=== PATIENT | female | born 1930 | race Caucasian/White ===

== ENCOUNTER 2016-12-23 23:57 | Emergency (ER) | payer BC ==
[~2016-12-23] VITALS: Ht 152.4 cm; Wt 64.5 kg
[~2016-12-23 23:57] MED LIST: AMLO5TAB4 PO; ASPI1TAB83 PO; ATEN-175 PO; CALC600T PO; CHOL100027 PO; DICL1GEL28 EXT; LEVO75TA5 PO; MCRK20 PO; METF500T5 PO; NRT/25 PO; OMEG12006 PO; PANT40TA PO; SIMV20TA5 PO
[2016-12-24] VITALS: Ht 152.4 cm; Wt 64.5 kg
[2016-12-24] MEDS ORDERED: OXYMETAZOLINE HCL 0.05% NA SPR 15 ML BTL ONE (00:11)
--- NOTE | 2016-12-24 00:37 | EMERGENCY ROOM VISIT NOTE ---
History Report prepared by Heaven: Taj Whitlock Under the Supervision of: Dr. Marisabel Bermeo D.O. First contact with patient: 00:11 Chief Complaint: NOSE BLEED (MINOR) Stated Complaint: NOSEBLEED History of Present Illness The patient is a 86 year old female who presents to the Emergency Room with complaints of episode of nose bleeding beginning about 2 hours ago. She states she was sleeping when she noticed what she thought was mucous in the back of her throat which was actually a clot. She denies any significant history of nose bleeds or bleeding in general. The patient does take an 81 mg aspirin daily. Source of History: patient Onset: about 2 hours ago Position: nose Quality: other (nose bleed) Timing: other (episode) Associated Symptoms: No LOC Review of Systems See HPI for pertinent positives & negatives. A total of 10 systems reviewed and were otherwise negative. 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 Social History Smoking Status: Never Smoker Marital Status: Housing Status: lives with family Current/Historical Medications Scheduled Amlodipine Besylate (Norvasc), 5 MG PO DAILY Aspirin (Aspirin), 81 MG PO DAILY Atenolol (Tenormin), 100 MG PO DAILY Calcium Carbonate (Calcium 600), 1,200 MG PO DAILY Cholecalciferol (Vitamin D 1000 Unit), 1,000 INTER.UNIT PO DAILY Levothyroxine Sodium (Levothyroxine Sodium), 75 MCG PO DAILY Metformin Hcl Er (Glucophage Er), 1,000 MG PO QAM Metformin Hcl Er (Glucophage Er), 500 MG PO QPM Nortriptyline Hcl (Pamelor), 25 MG PO DAILY Smoaks-3 Fatty Acids (Smoaks 3), 1,000 MG PO BID Pantoprazole Sodium (Protonix), 40 MG PO DAILY Potassium Ext Rel (Klor-Con), 40 MEQ PO DAILY Potassium Ext Rel (Klor-Con), 20 MEQ PO HS Simvastatin (Zocor), 20 MG PO QPM Allergies Coded Allergies: Metronidazole (Verified Allergy, Unknown, RASH, 12/24/16) Red Dye (Verified Allergy, Unknown, RASH, 12/24/16) Tinidazole (Verified Allergy, Unknown, RASH, 12/24/16) Yellow Dye (Verified Allergy, Unknown, RASH, 12/24/16) Physical Exam Vital Signs Date Time Temp Pulse Resp B/P Pulse Ox O2 Delivery O2 Flow Rate FiO2 12/24/16 01:34 58 20 150/69 95 Room Air 12/24/16 00:00 69 18 174/87 94 Room Air Physical Exam HEENT: Head - normocephalic and atraumatic Pupils are equal, round, and reactive to light. Extraocular eye muscles are intact, and sclera are anicteric. Nose - Left nares excoriation of the septum. Mouth - moist buccal mucosa. Oropharynx-blood clot noted Neck: Supple; no JVD, nuchal rigidity, cervical lymphadenopathy. Heart: Regular rate and rhythm. There is a normal S1 and S2 with no murmurs, clicks, or gallops appreciated. Lungs: Clear to auscultation bilaterally with no wheezes, rales, or rhonchi. Abdomen: Soft, completely nontender, nondistended, with good bowel sounds. Extremities: No evidence of cyanosis, clubbing, or edema. There are easily palpable peripheral pulses. Skin: warm and dry with good turgor and no rashes. Medical Decision & Procedures Medications Administered Medications (Trade) Dose Ordered Sig/Veronica Route Start Time Stop Time Status Last Admin Dose Admin Oxymetazoline HCl (Afrin 0.05% Nasal [place]) 75 sprays STK-MED ONCE .ROUTE 12/24/16 00:11 12/24/16 00:14 DC 12/24/16 00:17 75 SPRAYS ED Course 0034: Past medical records reviewed. The patient was evaluated in room B6. A complete history and physical exam was performed. The patient was able to gargle water to try to dislodge the clot within the posterior oropharynx. A clip had been placed by nursing staff on the patient's nose after having Afrin nasal spray. This was removed and the nose was 0151 examined.: The patient got the clot out, and has no further bleeding. 0200: Upon reevaluation, the patient is doing well. She verbalized agreement of the treatment plan. The patient was discharged home. Medical Decision The patient is a 86 year old female who presents to the Emergency Room with complaints of episode of nose bleeding beginning about 2 hours ago. The patient has a nosebleed today which is new for her. She does not appear to be anemic. She does take aspirin as an anticoagulant. The bleeding has stopped on its own. I've asked her to use a cool mist humidifier in her bedroom and [place] nasal spray to keep the nasal passage moist. I've asked the patient to hold pressure for 20 minutes if the bleeding would start again. She should avoid blowing her nose over the next 48 hours. Impression Primary Impression: Epistaxis Scribe Attestation The scribe's documentation has been prepared under my direction and personally reviewed by me in its entirety. I confirm that the note above accurately reflects all work, treatment, procedures, and medical decision making performed by me. Departure Information Dispostion Home / Self-Care Referrals Willian Mora M.D. (PCP) Patient Instructions My [facility], [facility] Additional Instructions Rest. Use a humidifier Hold pressure for 20 minutes if bleeding starts again Return to the ER if you can't get bleeding to stop Do not blow your nose or put anthing in your nose for next 48 hours
[2016-12-24 01:34] VITALS: BP 150/69; PULSE 58; O2SAT 95
[2016-12-24] MEDS ORDERED: POTA20TA16 PO ×2 (01:44→01:45)
== END 2016-12-24 02:04 | disposition home or self-care (01) ==
LOC: C.EDB 23:58
DX: R04.0 Epistaxis (principal)

== ENCOUNTER → 2017-03-21 | Outpatient (CLI) | payer BC ==
[~2017-03-21] MED LIST changes: -DICL1GEL28 EXT; -MCRK20 PO; +POTA20TA16 PO
[2017-03-21 16:52] LABS: BASO % 0.2 %; BASO ABS # 0.02 K/uL (0-0.2); COMPLETE YES; EOS % 2.6 %; HEMATOCRIT 37.7 % (37-47); IG% 0.4 %; LYMPH % 15.2 %; LYMPH ABS # 1.29 K/uL (1.2-3.4); MEAN CELL VOLUME 86.5 fL (80-100); MEAN CORPUSCULAR HEMOGLOBIN 26.4 pg (25-34); MEAN CORPUSCULAR HGB CONC 30.5 g/dl (32-36); MEAN PLATELET VOLUME 11.2 fL (7.4-10.4); MONO % 7.7 %; NEUT % 73.9 %; PLATELET COUNT 226 K/uL (130-400); RED BLOOD COUNT 4.36 M/uL (4.2-5.4); WHITE BLOOD COUNT 8.48 K/uL (4.8-10.8)
[2017-03-21 17:03] LABS: ALT/SGPT 19 U/L (12-78); AST/SGOT 15 U/L (15-37); BLOOD UREA NITROGEN 27 mg/dl (7-18); BUN/CREATININE RATIO 19.6 (10-20); CALCIUM 9.7 mg/dl (8.5-10.1); CARBON DIOXIDE 28 mmol/L (21-32); CHLORIDE 106 mmol/L (98-107); GLUCOSE 164 mg/dl (70-99); POTASSIUM 4.6 mmol/L (3.5-5.1); SODIUM 140 mmol/L (136-145)
[2017-03-21 17:06] LABS: ALB/GLOB RATIO 0.9 (0.9-2); ALKALINE PHOSPHATASE 61 U/L (45-117)
[2017-03-22 06:45] LABS: ESTIMATED AVERAGE GLUCOSE 157 mg/dl; HA1C FLAG Normal (Normal)
== END | disposition home or self-care (01) ==
LOC: C.LABBC 14:33
PROVIDERS: ATTEND Internal Medicine
DX: R10.9 Unspecified abdominal pain (principal); E11.9 Type 2 diabetes mellitus without complications

== ENCOUNTER → 2017-03-27 | Outpatient (CLI) | payer BC ==
--- NOTE | 2017-03-27 14:43 | DIAGNOSTIC IMAGING REPORT ---
ABDOMEN AND PELVIS CT WITH ORAL CONTRAST CT DOSE: 394.33 mGy.cm HISTORY: Generalized abdominal pain. TECHNIQUE: Multiaxial CT images of the abdomen and pelvis were performed following the use of oral contrast. COMPARISON STUDY: None. FINDINGS: Mild interstitial thickening at the lung bases. No pneumoperitoneum. No pneumatosis. No suspicious lytic or blastic osseous lesions. Cholecystectomy. The unenhanced liver, spleen, adrenal glands, and pancreas are unremarkable. No renal stones or hydronephrosis. No retroperitoneal lymphadenopathy. Punctate focus of gas within the bladder lumen. No bladder wall thickening. Hysterectomy. Colonic diverticulosis. No bowel wall thickening or obstruction. Normal appendix. IMPRESSION: 1. No bowel wall thickening or obstruction. 2. No renal stones or hydronephrosis. 3. Cholecystectomy and hysterectomy. 4. Punctate focus of gas within the bladder lumen. This may be due to recent catheterization or infection. Electronically signed by: Nicolas Ceja M.D. 03/27/2017 2:42 PM Dictated Date/Time: 03/27/2017 2:35 PM
== END | disposition home or self-care (01) ==
LOC: C.CTS 13:32
PROVIDERS: ATTEND Internal Medicine
DX: R10.9 Unspecified abdominal pain (principal); Z90.710 Acquired absence of both cervix and uterus; Z90.49 Acquired absence of other specified parts of digestive tract

== ENCOUNTER → 2017-03-29 | Outpatient (CLI) | payer BC ==
[2017-03-29 14:53] LABS: URINE APPEARANCE CLEAR (CLEAR); URINE BILIRUBIN NEG (NEG); URINE COLOR YELLOW; URINE EPITHELIAL CELL AUTO >30 /lpf (0-5); URINE NITRITE NEG (NEG); URINE SPECIFIC GRAVITY 1.019 (1.000-1.030); UROBILINOGEN NEG (NEG); ZZUR CULT IF INDIC CLEAN CATCH NO
[2017-03-29 15:00] LABS: MANUAL MICROSCOPIC REQUIRED? NO; REVIEW REQ? NO
== END | disposition home or self-care (01) ==
LOC: C.LAB 13:09
PROVIDERS: ATTEND Internal Medicine
DX: Z00.00 Encounter for general adult medical examination without abnormal findings (principal)

== ENCOUNTER → 2017-06-12 | Outpatient (CLI) | payer BC ==
--- NOTE | 2017-06-12 13:06 | DIAGNOSTIC IMAGING REPORT ---
NUCLEAR GASTRIC EMPTYING STUDY HISTORY: Constipation. COMPARISON: Abdomen and pelvis CT 03/27/2017. TECHNIQUE: Following the oral administration of 1.1 mCi of technetium 99m sulfur colloid in egg sandwich and 8 ounces of water, static abdominal images are obtained anteriorly and posteriorly at 0 minutes, 1 hour, 2 hour, and 4 hour time intervals. Gastric emptying was calculated utilizing the geometric mean method. FINDINGS: There is approximately 93% activity remaining at the 1 hour time interval (normal is less than 90%), 81% remaining at the 2 hour time interval (normal is less than 60%), and 51% activity remaining at the 4 hour time interval (normal is less than 10%). IMPRESSION: Significant delayed gastric emptying as described above. Electronically signed by: Nicolas Ceja M.D. 06/12/2017 1:04 PM Dictated Date/Time: 06/12/2017 1:04 PM
== END | disposition home or self-care (01) ==
LOC: C.NUCL 07:55
PROVIDERS: ATTEND Physician Assistant
DX: K59.09 Other constipation (principal)

== ENCOUNTER 2017-10-18 15:14 | Observation (INO) | payer BC ==
[~2017-10-18] VITALS: Ht 152.4 cm; Wt 59.3 kg
[2017-10-18] MEDS ORDERED: TRIATAB3 PO (16:25)
[2017-10-18] MEDS ORDERED: MECL1TAB42 PO (16:25)
[2017-10-18 16:52] LABS: BASO % 0.3 %; BASO ABS # 0.02 K/uL (0-0.2); EOS % 2.1 %; EOS ABS # 0.14 K/uL (0-0.5); HEMOGLOBIN 11.3 g/dL (12.0-16.0); IG# 0.03 K/uL (0.00-0.02); LYMPH % 18.2 %; LYMPH ABS # 1.21 K/uL (1.2-3.4); MEAN CELL VOLUME 86.1 fL (80-100); MEAN CORPUSCULAR HGB CONC 31.4 g/dl (32-36); MEAN PLATELET VOLUME 10.8 fL (7.4-10.4); MONO % 7.4 %; MONO ABS # 0.49 K/uL (0.11-0.59); NEUT % 71.5 %; NEUT ABS # 4.77 K/uL (1.4-6.5); PLATELET COUNT 215 K/uL (130-400); RED CELL DISTRIBUTION WIDTH CV 14.9 % (11.5-14.5); RED CELL DISTRIBUTION WIDTH SD 47.4 fL (36.4-46.3); WHITE BLOOD COUNT 6.66 K/uL (4.8-10.8)
--- NOTE | 2017-10-18 16:57 | DIAGNOSTIC IMAGING REPORT ---
HEAD WITHOUT CONTRAST (CT) CT DOSE: 601.98 mGy.cm HISTORY: Mental status change eval for bleed TECHNIQUE: Multiaxial CT images of the head were performed without the use of intravenous contrast. A dose lowering technique was utilized adhering to the principles of ALARA. Comparison: 06/07/2013 Findings: Prior partial left mastoidectomy. This has been discussed previously. The calvarium and skull base are intact. The ventricles and sulci are within normal limits. There is no mass, hematoma, midline shift, or acute infarct. Moderate age-related atrophy and chronic small vessel change. Impression: Chronic and age-related change. No acute process. The above report was generated using voice recognition software. It may contain grammatical, syntax or spelling errors. Electronically signed by: Jorge Durant M.D. 10/18/2017 4:56 PM Dictated Date/Time: 10/18/2017 4:54 PM
[2017-10-18 17:03] LABS: PTT PATIENT 24.7 SECONDS (21.0-31.0)
[2017-10-18 17:12] LABS: ALBUMIN 3.5 gm/dl (3.4-5.0); ALT/SGPT 16 U/L (12-78); BLOOD UREA NITROGEN 35 mg/dl (7-18); CALCIUM 9.6 mg/dl (8.5-10.1); CARBON DIOXIDE 23 mmol/L (21-32); CREATININE 1.53 mg/dl (0.60-1.20); GLUCOSE 94 mg/dl (70-99); LIPASE 292 U/L (73-393); POTASSIUM 4.6 mmol/L (3.5-5.1); SODIUM 141 mmol/L (136-145)
--- NOTE | 2017-10-18 17:19 | DIAGNOSTIC IMAGING REPORT ---
L ANKLE MIN 3 VIEWS ROUTINE CLINICAL HISTORY: eval for fx COMPARISON: None. DISCUSSION: Moderate degenerative change. Heel spur. Mild soft tissue edema. There is no evidence for soft tissue swelling. IMPRESSION: Degenerative change. Moderate soft tissue edema. No acute bony abnormality. The above report was generated using voice recognition software. It may contain grammatical, syntax or spelling errors. Electronically signed by: Jorge Durant M.D. 10/18/2017 5:18 PM Dictated Date/Time: 10/18/2017 5:17 PM
--- NOTE | 2017-10-18 17:20 | DIAGNOSTIC IMAGING REPORT ---
CHEST 2 VIEWS ROUTINE CLINICAL HISTORY: eval fo pna dyspnea COMPARISON STUDY: 06/07/2013 FINDINGS: The bones soft tissues and hemidiaphragms are normal. The cardiomediastinal silhouette is normal. The lungs are clear. The pulmonary vasculature is normal. IMPRESSION: Negative chest. The above report was generated using voice recognition software. It may contain grammatical, syntax or spelling errors. Electronically signed by: Jorge Durant M.D. 10/18/2017 5:19 PM Dictated Date/Time: 10/18/2017 5:19 PM
[2017-10-18 17:23] LABS: ALKALINE PHOSPHATASE 46 U/L (45-117); AST/SGOT 12 U/L (15-37); TOTAL PROTEIN 7.6 gm/dl (6.4-8.2)
--- NOTE | 2017-10-18 17:41 | EMERGENCY ROOM VISIT NOTE ---
History Report prepared by Heaven: Umm Ramos Under the Supervision of: Dr. Aureliano Reed M.D. First contact with patient: 15:31 Chief Complaint: FALL Stated Complaint: FELL HIT HEAD DR REFERRED History of Present Illness The patient is a 87 year old female who presents to the Emergency Room with complaints of episode of a syncope occurring on Saturday, four days ago. The patient states she does not remember falling and that she found herself on the floor. The patient believes she was sitting at her kitchen table and fell out of her chair. The patient states when she woke up her face was in vomit. She states she did not vomit again after the fall. She thinks she probably passed out causing herself to fall. She does not remember anything prior to falling. Presently, the patient denies any headache, chest pain, fever, shortness of breath, neck pain, back pain, shoulder pain, or black or bloody stools. She notes weakness and feeling "woobly" when walking which has been and ongoing issue for her before the fall. She denies any increased weakness since her fall. The patient is not on any blood thinners. She reports some abdominal pain which is normal for her because of her history of stomach ulcers. She also notes some left ankle soreness which is been an ongoing issue for her before her fall. The patient's family member called her PCP who referred her to come to the ED for further evaluation. The patient has a history of diabetes. Source of History: patient Onset: four days ago Position: other (generalized) Quality: other (fall) Timing: other (episode) Associated Symptoms: + LOC, No fevers, No headache, No neck pain, No chest pain, No SOB, No back pain Review of Systems See HPI for pertinent positives & negatives. A total of 10 systems reviewed and were otherwise negative. 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 Social History Smoking Status: Never Smoker Marital Status: Housing Status: lives with family Current/Historical Medications Scheduled Amlodipine Besylate (Norvasc), 5 MG PO DAILY Aspirin (Aspirin), 81 MG PO DAILY Atenolol (Tenormin), 100 MG PO DAILY Calcium Carbonate (Calcium 600), 1,200 MG PO DAILY Cholecalciferol (Vitamin D 1000 Unit), 1,000 INTER.UNIT PO DAILY Levothyroxine Sodium (Levothyroxine Sodium), 75 MCG PO DAILY Metformin Hcl Er (Glucophage Er), 500 MG PO BID Mitchell-3 Fatty Acids (Mitchell 3), 1,000 MG PO BID Pantoprazole Sodium (Protonix), 40 MG PO DAILY Potassium Ext Rel (Klor-Con), 40 MEQ PO DAILY Potassium Ext Rel (Klor-Con), 20 MEQ PO HS Simvastatin (Zocor), 20 MG PO QPM Triamterene/Hctz (Triamterene/Hctz 37.5-25MG), 1 TAB PO DAILY Scheduled PRN Meclizine Hcl (Meclizine Hcl), 1 TAB PO HS PRN for Dizziness or Vertigo Allergies Coded Allergies: Metronidazole (Verified Allergy, Unknown, RASH, 12/24/16) Red Dye (Verified Allergy, Unknown, RASH, 12/24/16) Tinidazole (Verified Allergy, Unknown, RASH, 12/24/16) Yellow Dye (Verified Allergy, Unknown, RASH, 12/24/16) Physical Exam Vital Signs Date Time Temp Pulse Resp B/P (MAP) Pulse Ox O2 Delivery O2 Flow Rate FiO2 10/18/17 17:27 51 128/59 95 Room Air 10/18/17 16:32 64 111/63 10/18/17 16:29 49 124/59 54 140/63 67 111/63 10/18/17 16:27 54 10/18/17 15:21 36.5 57 16 139/71 96 Room Air Physical Exam Constitutional: Vital signs reviewed. Eyes: Pupils are equal round reactive to light. Conjunctiva are noninjected. ENT: Pharynx is clear without erythema or exudate. Mucous membranes are moist. Neck supple without meningeal signs. Respiratory: Clear to auscultation bilaterally. Breath sounds are equal bilaterally. Cardiovascular: Regular rate and rhythm. No rubs or gallops. GI: Epigastric tenderness, no guarding. Soft and nondistended. Bowel sounds are present. Musculoskeletal: No midline tenderness to cervical, thoracic or lumbosacral spine, no tenderness to upper extremity. Mild tenderness to lateral malleolus of left ankle without erythema or significant swelling. Integumentary: No cyanosis. Neurologic: The patient is awake and alert. Cranial nerves II-XII are intact except for loss of hearing the left ear. Motor is 5 out of 5 all extremities. Sensation is intact to light touch all extremities. Normal speech. No pronator drift. Psychiatric: Normal affect. Medical Decision & Procedures ER Provider Diagnostic Interpretation: Radiology results as stated below per my review and the radiologist's interpretation: HEAD WITHOUT CONTRAST (CT) Findings: Prior partial left mastoidectomy. This has been discussed previously. The calvarium and skull base are intact. The ventricles and sulci are within normal limits. There is no mass, hematoma, midline shift, or acute infarct. Moderate age-related atrophy and chronic small vessel change. Impression: Chronic and age-related change. No acute process. The above report was generated using voice recognition software. It may contain grammatical, syntax or spelling errors. Electronically signed by: Jorge Durant M.D. L ANKLE MIN 3 VIEWS ROUTINE DISCUSSION: Moderate degenerative change. Heel spur. Mild soft tissue edema. There is no evidence for soft tissue swelling. IMPRESSION: Degenerative change. Moderate soft tissue edema. No acute bony abnormality. The above report was generated using voice recognition software. It may contain grammatical, syntax or spelling errors. Electronically signed by: Jorge Durant M.D. CHEST 2 VIEWS ROUTINE FINDINGS: The bones soft tissues and hemidiaphragms are normal. The cardiomediastinal silhouette is normal. The lungs are clear. The pulmonary vasculature is normal. IMPRESSION: Negative chest. The above report was generated using voice recognition software. It may contain grammatical, syntax or spelling errors. Electronically signed by: Jorge Durant M.D. Laboratory Results 10/18/17 16:40 Red Blood Count 4.18, Mean Corpuscular Volume 86.1, Mean Corpuscular Hemoglobin 27.0, Mean Corpuscular Hemoglobin Concent 31.4, Mean Platelet Volume 10.8, Neutrophils (%) (Auto) 71.5, Lymphocytes (%) (Auto) 18.2, Monocytes (%) (Auto) 7.4, Eosinophils (%) (Auto) 2.1, Basophils (%) (Auto) 0.3, Neutrophils # (Auto) 4.77, Lymphocytes # (Auto) 1.21, Monocytes # (Auto) 0.49, Eosinophils # (Auto) 0.14, Basophils # (Auto) 0.02 10/18/17 16:40 Test 10/18/17 16:40 White Blood Count 6.66 K/uL (4.8-10.8) Red Blood Count 4.18 M/uL (4.2-5.4) Hemoglobin 11.3 g/dL (12.0-16.0) Hematocrit 36.0 % (37-47) Mean Corpuscular Volume 86.1 fL (80-100) Mean Corpuscular Hemoglobin 27.0 pg (25-34) Mean Corpuscular Hemoglobin Concent 31.4 g/dl (32-36) Platelet Count 215 K/uL (130-400) Mean Platelet Volume 10.8 fL (7.4-10.4) Neutrophils (%) (Auto) 71.5 % Lymphocytes (%) (Auto) 18.2 % Monocytes (%) (Auto) 7.4 % Eosinophils (%) (Auto) 2.1 % Basophils (%) (Auto) 0.3 % Neutrophils # (Auto) 4.77 K/uL (1.4-6.5) Lymphocytes # (Auto) 1.21 K/uL (1.2-3.4) Monocytes # (Auto) 0.49 K/uL (0.11-0.59) Eosinophils # (Auto) 0.14 K/uL (0-0.5) Basophils # (Auto) 0.02 K/uL (0-0.2) RDW Standard Deviation 47.4 fL (36.4-46.3) RDW Coefficient of Variation 14.9 % (11.5-14.5) Immature Granulocyte % (Auto) 0.5 % Immature Granulocyte # (Auto) 0.03 K/uL (0.00-0.02) Prothrombin Time 10.6 SECONDS (9.0-12.0) Prothromb Time International Ratio 1.0 (0.9-1.1) Activated Partial Thromboplast Time 24.7 SECONDS (21.0-31.0) Partial Thromboplastin Ratio 1.0 Anion Gap 10.0 mmol/L (3-11) Est Creatinine Clear Calc Drug Dose 20.1 ml/min Estimated GFR () 34.8 Estimated GFR (Non- 30.1 BUN/Creatinine Ratio 23.1 (10-20) Calcium Level 9.6 mg/dl (8.5-10.1) Total Bilirubin 0.4 mg/dl (0.2-1) Direct Bilirubin 0.1 mg/dl (0-0.2) Aspartate Amino Transf (AST/SGOT) 12 U/L (15-37) Alanine Aminotransferase (ALT/SGPT) 16 U/L (12-78) Alkaline Phosphatase 46 U/L (45-117) Troponin I < 0.015 ng/ml (0-0.045) Total Protein 7.6 gm/dl (6.4-8.2) Albumin 3.5 gm/dl (3.4-5.0) Lipase 292 U/L (73-393) Thyroid Stimulating Hormone (TSH) 0.420 uIu/ml (0.300-4.500) Laboratory results as reviewed by me. ECG Indication: syncope Rate (beats per minute): 55 Rhythm: sinus bradycardia Findings: 1st degree AV block, PAC, no acute ischemic change ED Course 1533: The patient was evaluated in room C10. A complete history and physical exam was performed. 1648: The patient is at CT. 1700: The patient is still at CT. I spoke to the patient's daughter in-law and she feels the patient isn't safe at home by herself. 1711: I spoke with Dr. Robert of [facility]. We discussed the patient and his results. The patient will be further evaluated by her. 1724: I discussed the patient's test results with her and her family. Medical Decision This is an 87-year-old female who presents with a syncopal episode. Differential diagnosis includes dysrhythmia, cardiac, intracranial hemorrhage, intracranial mass, metabolic derangement, anemia. I did perform a limited focused review of portions of the patient's old chart on the electronic medical record. The patient has had no recent pertinent visits to this hospital. I did evaluate the patient as noted above. The patient is presenting with a syncopal episode several days ago. She has been also very weak since this happened and her [id number] states that she has been staying with her because she cannot live on her own at this time. She does not feel the patient can take care of herself at this time. IV access was established. The patient was placed on a continuous nuclear monitoring technician. I did order and personally review the patient's 12-lead EKG and chest x-ray as described above. I did order and review the patient's blood work as noted in the electronic medical record. Creatinine is slightly elevated above baseline. Troponin is negative. She has mild anemia. I did order a CT of the head. I did review the images myself as well as the radiology report as described above. There is no evidence of hemorrhage. I did discuss the test results with the patient and her daughter-in -law. I did recommend hospitalization for further evaluation of her symptoms. I did discuss case with the hospitalist and case making machine operator. Head Trauma GCS Score: 15 Medication Reconcilliation Current Medication List: was personally reviewed by me Blood Pressure Screening Patient's blood pressure: Elevated blood pressure Blood pressure disposition: Referred to PCP Consults Time Called: 1705 Consulting Physician: Dr. Robert-[facility] Returned Call: [address] Robert of [facility]. We discussed the patient and his results. The patient will be further evaluated by her. Impression Primary Impression: Syncope Additional Impressions: Head injury Fall Anemia Scribe Attestation The scribe's documentation has been prepared under my direct and personally reviewed by me in its entirety. I confirm that the note above accurately reflects all work, treatment, procedures, and medical decision making performed by me. Departure Information Dispostion Being Evaluated By Hospitalist Referrals Willian Mora M.D. (PCP) Patient Instructions My [facility] Problem Qualifiers Primary Impression: Syncope Syncope type: unspecified Qualified Codes: R55 - Syncope and collapse Additional Impressions: Head injury Encounter type: initial encounter Qualified Codes: S09.90XA - Unspecified injury of head, initial encounter Fall Encounter type: initial encounter Qualified Codes: W19.XXXA - Unspecified fall, initial encounter Anemia Anemia type: unspecified type Qualified Codes: D64.9 - Anemia, unspecified
[2017-10-18] MEDS ORDERED: DEXTROSE 50% 50 ML SYR IV PRN (19:30)
[2017-10-18] MEDS ORDERED: ALUMINUM/MAGNESIUM/SIMETH (MAALOX MAX) 30 ML UDC PO PRN (19:30)
[2017-10-18] MEDS ORDERED: POLYETHYLENE (MIRALAX) 17 GM PACK PO PRN (19:30)
[2017-10-18] MEDS ORDERED: GLUCOSE 10 TABS/TUBE PO PRN (19:30)
[2017-10-18] MEDS ORDERED: GLUCOSE 40% GEL 15 GM TUBE PO PRN (19:30)
[2017-10-18] MEDS ORDERED: MAGNESIUM HYDROXIDE SUSP 30 ML UDC PO PRN (19:30)
[2017-10-18] MEDS ORDERED: ONDANSETRON INJ 2 MG/ML 2 ML VIAL IV PRN (19:30)
[2017-10-18] MEDS ORDERED: GLUCAGON FOR INJ 1 MG VIAL SQ PRN (19:30)
[2017-10-18] MEDS ORDERED: ACETAMINOPHEN 325 MG TAB PO PRN (19:30)
--- NOTE | 2017-10-18 19:54 | History and Physical ---
History & Physical Date & Time of Service: Oct 18, 2017 at 19:29 Chief Complaint: Fell Hit Head Dr Referred Primary Care Physician: Willian Mora M.D. History of Present Illness Source: patient, family (children at bedside), clinic records, hospital records This is an 87 y/o female with a history of HTN, HLD, DM II w/gastroparesis, CKD stage III, hypothyroidism, fibromyalgia, depression, and GERD who presented to the ED on 10/18 with a syncopal episode and fall. The patient had a fall 4 days ago on 10/14. She does not remember the fall or what happened beforehand. She woke up on the floor of her kitchen with her chair turned over, so she believes she passed out and then fell. She also awoke with a small amount of vomit on her cheek. She does not recall any symptoms prior to the fall/syncope. She fell on her right side but denies any pain there. She does report a mild 1/10 pain in the back of her head. She states she has had issues with unsteady gait for several months and sometimes relies on nearby pretty/furniture to help her get around. She denies any worsening of her gait, worsening weakness, dizziness , lightheadedness, changes in vision, numbness or tingling since the fall. She denies any changes in mental status or slurred speech. She came to the ED at the behest of her daughter. The patient does admit to some diffuse abdominal pain, which is chronic for her. She also notes a chronic, non-productive cough and states that she sometimes gets a very brief, sharp jab of pain in her left chest intermittently. The patient denies fevers, chills, sweats, palpitations, claudication, wheezing, shortness of breath, nausea, vomiting, dysuria, hematuria, urinary retention, paralysis, weakness, numbness and tingling. 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 HTN HLD CKD stage III Hypothyroidism Fibromyalgia Depression GERD Family History Coronary artery disease Hypertension Stroke Social History Smoking Status: Former Smoker (remote social smoker, no tobacco in 40 years) Smokeless Tobacco Use: No Alcohol Use: none Drug Use: none Marital Status: Housing status: lives with significant other Occupational Status: retired Immunizations History of Influenza Vaccine: Yes Influenza Vaccine Date: Aug 08, 2012 History of Tetanus Vaccine?: Yes History of Pneumococcal: Yes Pneumococcal Date: Aug 08, 2012 History of Hepatitis B Vaccine: Unknown Multi-Drug Resistant Organisms History of MDRO: No Allergies Coded Allergies: Metronidazole (Verified Allergy, Unknown, RASH, 12/24/16) Red Dye (Verified Allergy, Unknown, RASH, 12/24/16) Tinidazole (Verified Allergy, Unknown, RASH, 12/24/16) Yellow Dye (Verified Allergy, Unknown, RASH, 12/24/16) Home Medications Scheduled Amlodipine Besylate (Norvasc), 5 MG PO DAILY Aspirin (Aspirin), 81 MG PO DAILY Atenolol (Tenormin), 100 MG PO DAILY Calcium Carbonate (Calcium 600), 1,200 MG PO DAILY Cholecalciferol (Vitamin D 1000 Unit), 1,000 INTER.UNIT PO DAILY Levothyroxine Sodium (Levothyroxine Sodium), 75 MCG PO DAILY Metformin Hcl Er (Glucophage Er), 500 MG PO BID Forbes-3 Fatty Acids (Forbes 3), 1,000 MG PO BID Pantoprazole Sodium (Protonix), 40 MG PO DAILY Potassium Ext Rel (Klor-Con), 40 MEQ PO DAILY Potassium Ext Rel (Klor-Con), 20 MEQ PO HS Simvastatin (Zocor), 20 MG PO QPM Triamterene/Hctz (Triamterene/Hctz 37.5-25MG), 1 TAB PO DAILY Scheduled PRN Meclizine Hcl (Meclizine Hcl), 1 TAB PO HS PRN for Dizziness or Vertigo Review of Systems Constitutional: No fever, No chills, No sweats Eyes: No worsening of vision, No eye pain, No diplopia ENT: No hearing loss, No nasal symptoms, No trouble swallowing Respiratory: +Chronic cough. No wheezing, No shortness of breath Cardiovascular: +Intermittent brief jabs of chest pain. No claudication, No palpitations Abdomen: +Chronic diffuse abdominal pain. No nausea, No vomiting Musculoskeletal: No joint pain, No muscle pain, No swelling Genitourinary - Female: No dysuria, No urinary retention, No hematuria Neurologic: No paralysis, No weakness, No numbness/tingling Integumentary: No rash, No itch, No color change Physical Exam Vital Signs Date Time Temp Pulse Resp B/P (MAP) Pulse Ox O2 Delivery O2 Flow Rate FiO2 10/18/17 19:28 54 15 134/67 95 Room Air 10/18/17 17:27 51 128/59 95 Room Air 10/18/17 16:32 64 111/63 10/18/17 16:29 49 124/59 54 140/63 67 111/63 10/18/17 16:27 54 10/18/17 15:21 36.5 57 16 139/71 96 Room Air General appearance: Well-developed, well-nourished, no apparent distress Head: Normocephalic, atraumatic Eyes: Normal inspection, PERRL, EOMI ENT: Normal ENT inspection, hearing grossly normal, pharynx normal Neck: Supple, no JVD, trachea midline Respiratory/Chest: +Slight fine crackles in bases. Normal breath sounds, no respiratory distress Cardiovascular: +Bradycardia. Regular rhythm, no gallop, no murmur Abdomen/GI: +Diffuse tenderness. Normal bowel sounds, soft Extremities/Musculoskeletal: Normal inspection, no calf tenderness, no pedal edema Neurological/Psych: Alert, normal mood/affect, oriented x 3 Skin: Normal color, warm/dry, no rash Diagnostics Laboratory Results Results Past 24 Hours Test 10/18/17 16:40 10/18/17 19:19 Range/Units White Blood Count 6.66 4.8-10.8 K/uL Red Blood Count 4.18 4.2-5.4 M/uL Hemoglobin 11.3 12.0-16.0 g/dL Hematocrit 36.0 37-47 % Mean Corpuscular Volume 86.1 80-100 fL Mean Corpuscular Hemoglobin 27.0 25-34 pg Mean Corpuscular Hemoglobin Concent 31.4 32-36 g/dl Platelet Count 215 130-400 K/uL Mean Platelet Volume 10.8 7.4-10.4 fL Neutrophils (%) (Auto) 71.5 % Lymphocytes (%) (Auto) 18.2 % Monocytes (%) (Auto) 7.4 % Eosinophils (%) (Auto) 2.1 % Basophils (%) (Auto) 0.3 % Neutrophils # (Auto) 4.77 1.4-6.5 K/uL Lymphocytes # (Auto) 1.21 1.2-3.4 K/uL Monocytes # (Auto) 0.49 0.11-0.59 K/uL Eosinophils # (Auto) 0.14 0-0.5 K/uL Basophils # (Auto) 0.02 0-0.2 K/uL RDW Standard Deviation 47.4 36.4-46.3 fL RDW Coefficient of Variation 14.9 11.5-14.5 % Immature Granulocyte % (Auto) 0.5 % Immature Granulocyte # (Auto) 0.03 0.00-0.02 K/uL Prothrombin Time 10.6 9.0-12.0 SECONDS Prothromb Time International Ratio 1.0 0.9-1.1 Activated Partial Thromboplast Time 24.7 21.0-31.0 SECONDS Partial Thromboplastin Ratio 1.0 Sodium Level 141 136-145 mmol/L Potassium Level 4.6 3.5-5.1 mmol/L Chloride Level 108 98-107 mmol/L Carbon Dioxide Level 23 21-32 mmol/L Anion Gap 10.0 3-11 mmol/L Blood Urea Nitrogen 35 7-18 mg/dl Creatinine 1.53 0.60-1.20 mg/dl Est Creatinine Clear Calc Drug Dose 20.1 ml/min Estimated GFR () 34.8 Estimated GFR (Non- 30.1 BUN/Creatinine Ratio 23.1 10-20 Random Glucose 94 70-99 mg/dl Calcium Level 9.6 8.5-10.1 mg/dl Total Bilirubin 0.4 0.2-1 mg/dl Direct Bilirubin 0.1 0-0.2 mg/dl Aspartate Amino Transf (AST/SGOT) 12 15-37 U/L Alanine Aminotransferase (ALT/SGPT) 16 12-78 U/L Alkaline Phosphatase 46 45-117 U/L Troponin I < 0.015 0-0.045 ng/ml Total Protein 7.6 6.4-8.2 gm/dl Albumin 3.5 3.4-5.0 gm/dl Lipase 292 73-393 U/L Thyroid Stimulating Hormone (TSH) 0.420 0.300-4.500 uIu/ml Diagnostic Radiology Reviewed the following studies and agree with interpretation as follows: HEAD WITHOUT CONTRAST (CT) CT DOSE: 601.98 mGy.cm HISTORY: Mental status change eval for bleed TECHNIQUE: Multiaxial CT images of the head were performed without the use of intravenous contrast. A dose lowering technique was utilized adhering to the principles of ALARA. Comparison: 06/07/2013 Findings: Prior partial left mastoidectomy. This has been discussed previously. The calvarium and skull base are intact. The ventricles and sulci are within normal limits. There is no mass, hematoma, midline shift, or acute infarct. Moderate age-related atrophy and chronic small vessel change. Impression: Chronic and age-related change. No acute process. CHEST 2 VIEWS ROUTINE CLINICAL HISTORY: eval fo pna dyspnea COMPARISON STUDY: 06/07/2013 FINDINGS: The bones soft tissues and hemidiaphragms are normal. The cardiomediastinal silhouette is normal. The lungs are clear. The pulmonary vasculature is normal. IMPRESSION: Negative chest. L ANKLE MIN 3 VIEWS ROUTINE CLINICAL HISTORY: eval for fx COMPARISON: None. DISCUSSION: Moderate degenerative change. Heel spur. Mild soft tissue edema. There is no evidence for soft tissue swelling. IMPRESSION: Degenerative change. Moderate soft tissue edema. No acute bony abnormality. EKG Reviewed EKG and agree with interpretation as follows: 55 bpm, sinus bradycardia with 1st degree AV block and premature supraventricular complexes Impression Assessment and Plan 87 y/o female with a history of HTN, HLD, DM II w/gastroparesis, CKD stage III, hypothyroidism, fibromyalgia, depression, and GERD who presented to the ED on with a syncopal episode and fall. Pt bradycardic in ED, vital signs otherwise stable, afebrile. Head CT negative for acute abnormality. CXR no acute disease. Left ankle x-ray with some soft tissue edema, no fracture. EKG no ischemic changes. Syncope and fall -Admit to telemetry for cardiac monitoring -Check echocardiogram -Carotid ultrasound -Orthostatic BPs -Check UA for possible UTI contributing -Trend troponin q8h x3, first negative. Has intermittent brief stabs of chest pain -EKG q am and prn chest pain Bradycardia--syncope may be secondary to bradycardia, pt has been in low 50s in ED -Hold atenolol for now HTN, HLD--stable -Continue Norvasc 5 mg PO qd, Maxzide 37.5/25 1 tab PO qd, Zocor 20 mg PO hs -Hold atenolol DM II--last HgbA1c 7.1 on 03/21/17 -Hold metformin -Insulin sliding scale -Check BSGs q ac and qhs -Recheck HgbA1c CKD stage III--stable -Creatinine at baseline Hypothyroidism -TSH WNL -Continue Synthroid 75 mcg PO qd GERD -Continue Protonix 40 mg PO qd DVT prophylaxis -Heparin 5000 units SC q12h -ESTHELA peoples and SCDs Code Status -Level I, FULL RESUSCITATION STATUS Dispo -From home, lives with but he is currently hospitalized -Daughter concerned she is not safe to return home. Case management consulted, PT/OT evaluate and treat Level of Care Telemetry Resuscitation Status FULL RESUSCITATION VTE Prophylaxis VTE Risk Assessment Done? Y/N: Yes Risk Level: Moderate Given or contraindicated: Unfractionated heparin SQ, T.E.D. Stockings, SCD's Reviewed: Pt Seen/Exam by Me History Pt reports no memory of passing out, but notes she found herself on the floor without knowing how she got there on Saturday. She has had falls in the past, but no hx of syncope. She has not had falls or syncope since Saturday. Pt is tolerating PO but having difficulty with her new diet. She was dx with gastroparesis and was advised to eat frequent small meals and avoid dairy, however she finds she cannot remember to do this. Pt's is in the ICU currently s/p HI earlier this week. Her son and daughter are here due to this and feel that pt is having difficulty taking care of herself without his help. They feel she is not steady on her feet and that her memory issues are worse than was realized prior. Pt states she feels in her usual state of health. No SOB or chest pain. Agree with HPI/ROS as noted. General Appearance: WD/WN, no apparent distress Eye Exam: bilateral eye normal inspection, bilateral eye EOMI Respiratory: lungs clear, normal breath sounds, no respiratory distress Cardiovascular: normal peripheral pulses, bradycardia Gastrointestinal: non tender, soft Extremities: non-tender, no pedal edema Neurologic/Psychiatric: alert, normal mood/affect, oriented x 3 Skin Characteristics: normal color, warm/dry Assessment/Plan Agree with plan as outlined above Syncope x1, no hx of prior Bradycardia noted, also under extreme stress with 's recent HI and ongoing ICU status CBC, PRP, TSH, trop WNL CT head neg No EKG changes other than bradycardia ECHO pending Possibly will need d/c on event monitor if no further sx during hospitalization vs pacer PT/OT pending Possible placement issues
[2017-10-18 20:45] VITALS: BP 151/70; PULSE 56; TEMP 36.9; Ht 152.4 cm; Wt 59.3 kg
[2017-10-18] MEDS: SIMVASTATIN 20 MG TAB PO SCH (21:00)
[2017-10-18] MEDS: INSULIN ASPART 100 UNITS/ML 3 ML PEN SC SCH (21:00)
--- NOTE | 2017-10-18 21:06 | DIAGNOSTIC IMAGING REPORT ---
BILATERAL CAROTID DOPPLER STUDY HISTORY: syncope COMPARISON: None. TECHNIQUE: Real-time, grayscale, and color Doppler sonography of the carotid arteries was performed. Imaging reviewed in the transverse and longitudinal planes. All measurements were calculated based on NASCET criteria. FINDINGS: Antegrade flow is seen in the bilateral vertebral arteries. The brachial pressures were not obtained. Mild calcified plaque within the bilateral carotid bifurcations. The peak systolic velocity within the right ICA is 73 cm/s. The right systolic ratio is 1.5. The peak systolic velocity within the left ICA is 87 cm/s. The left systolic ratio is 1.3. IMPRESSION: No hemodynamically significant stenosis seen within the carotid arteries. Electronically signed by: Nicolas Ceja M.D. 10/18/2017 9:04 PM Dictated Date/Time: 10/18/2017 9:03 PM
[2017-10-18] MEDS ORDERED: IV FLUIDS COMPLETED PRN (22:45)
[2017-10-19 00:19] VITALS: BP 138/68; PULSE 60; TEMP 36.6; O2SAT 94
[2017-10-19] MEDS: POTASSIUM CHLORIDE 20 MEQ TABCR PO SCH ×3 (00:41→21:02)
[2017-10-19] MEDS: HEPARIN SOD 5000 UNIT/0.5 ML CARP SQ SCH ×3 (00:41→21:03)
[2017-10-19] MEDS: LEVOTHYROXINE 75 MCG TAB PO SCH (05:19)
[2017-10-19 05:57] VITALS: BP_SYST 110; BP_SYST 121; BP_SYST 125; BP_DIAS 60; BP_DIAS 65; BP_DIAS 86; PULSE 53; TEMP 36.8; O2SAT 94
[2017-10-19 07:11] LABS: HEMOGLOBIN A1C 6.8 % (4.5-5.6)
[2017-10-19] MEDS: INSULIN ASPART 100 UNITS/ML 3 ML PEN SC SCH ×4 (07:41→20:56)
[2017-10-19 08:15] VITALS: BP_SYST 122; BP_SYST 138; BP_SYST 141; BP_DIAS 64; BP_DIAS 67; BP_DIAS 70; PULSE 57; PULSE 59; PULSE 65; TEMP 36.5; O2SAT 94
[2017-10-19] MEDS: CHOLECALCIFEROL 1000 INTER.UNIT TAB PO SCH (08:37)
[2017-10-19] MEDS: AMLODIPINE BESYLATE 5 MG TAB PO SCH (08:39)
[2017-10-19] MEDS: PANTOprazole SOD 40 MG TAB PO SCH (08:39)
[2017-10-19] MEDS: ASPIRIN 81 MG ECTAB PO SCH (08:40)
[2017-10-19] MEDS: TRIAMTERENE/HCTZ 37.5/25MG TAB PO SCH (08:40)
[2017-10-19 08:47] LABS: HEMOGLOBIN 11.2 g/dL (12.0-16.0); MEAN CELL VOLUME 85.8 fL (80-100); MEAN CORPUSCULAR HEMOGLOBIN 27.5 pg (25-34); MEAN PLATELET VOLUME 10.5 fL (7.4-10.4); PLATELET COUNT 198 K/uL (130-400); RED CELL DISTRIBUTION WIDTH CV 14.8 % (11.5-14.5); RED CELL DISTRIBUTION WIDTH SD 46.8 fL (36.4-46.3); WHITE BLOOD COUNT 4.98 K/uL (4.8-10.8)
[2017-10-19 09:30] LABS: CALCIUM 9.2 mg/dl (8.5-10.1); CREATININE 1.44 mg/dl (0.60-1.20); POTASSIUM 3.9 mmol/L (3.5-5.1)
[2017-10-19 10:58] VITALS: BP 137/55; PULSE 49; TEMP 36.7; O2SAT 94
--- NOTE | 2017-10-19 13:00 | Hospitalist Progress Note ---
Hospitalist Progress Note Date of Service Oct 19, 2017. (Maeve Matt ., PA-C) Subjective Pt evaluation today including: conversation w/ patient, physical exam, lab review, review of studies, review of inpatient medication list Patient sitting up in bed reading newspaper. Eating and drinking OK. Notes urinary frequency, but states she drinks a lot of water- UA pending. Syncopal event was on Saturday- does not recall events. Denies any injuries. Notes small amount of emesis. Laid on floor for a short while until she could get up. No bowel/bladder incontinence. Notes is currently hospitalized for PA and influenza. Patient states she came to ED yesterday because her children made her. Besides event on Saturday, she has been feeling well. Notes she was placed on Meclizine a few weeks ago for dizziness prior to bed, but discontinued medication because it was making her have hallucinations. Does not recall dizziness/lightheadedness prior to syncopal event or recent events throughout the week. Discussed discharge w/ patient- states she is unsure what the future holds but children do not think she should return home. Also, patient does not feel safe returning home w/out there. Patient denies any fever, chills, sweats, lightheadedness, dizziness, vision changes, CP, palpitations, edema, SOB, wheezing, cough, abdominal pain, nausea, vomiting, diarrhea, melena, numbness/tingling, weakness, muscle/joint pain, anxiety/depression, active bleeding, or new skin discoloration/changes. (Maeve Matt ., PA-C) Medications Current Inpatient Medications Medications (Trade) Dose Ordered Sig/Veronica Route Start Time Stop Time Status Last Admin Dose Admin Heparin Sodium (Porcine) (Heparin Sq 5000 Unit/0.5ml) 5,000 unit Q12 SQ 10/18/17 21:00 11/17/17 20:59 10/19/17 08:44 5,000 UNIT Acetaminophen (Tylenol Tab) 650 mg Q4H PRN PO 10/18/17 19:30 11/17/17 19:29 Al Hydrox/Mg Hydrox/Simethicone (Maalox Max Susp) 15 ml Q4H PRN PO 10/18/17 19:30 11/17/17 19:29 Magnesium Hydroxide (Milk Of Magnesia Susp) 30 ml Q12H PRN PO 10/18/17 19:30 11/17/17 19:29 Ondansetron HCl (Zofran Inj) 4 mg Q6H PRN IV 10/18/17 19:30 11/17/17 19:29 Polyethylene (Miralax Powder Packet) 17 gm DAILY PRN PO 10/18/17 19:30 11/17/17 19:29 Insulin Aspart (novoLOG ASPART) SLIDING SCALE If C... ACHS SC 10/18/17 21:00 11/17/17 20:59 Glucose (Glucose 40% Gel) 15-30 GRAMS 15 GRAMS... UD PRN PO 10/18/17 19:30 11/17/17 19:29 Glucose (Glucose Chew Tab) 4-8 Tablets 4 Tabl... UD PRN PO 10/18/17 19:30 11/17/17 19:29 Dextrose (Dextrose 50% 50ML Syringe) 25-50ML OF 50% DW IV FOR... UD PRN IV 10/18/17 19:30 11/17/17 19:29 Glucagon (Glucagon Inj) 1 mg UD PRN SQ 10/18/17 19:30 11/17/17 19:29 Amlodipine Besylate (Norvasc Tab) 5 mg DAILY PO 10/19/17 09:00 11/18/17 08:59 10/19/17 08:39 5 MG Aspirin (Ecotrin Tab) 81 mg DAILY PO 10/19/17 09:00 11/18/17 08:59 10/19/17 08:40 81 MG Cholecalciferol (Vitamin D Tab) 1,000 inter.unit DAILY PO 10/19/17 09:00 11/18/17 08:59 10/19/17 08:37 1,000 INTER.UNIT Levothyroxine Sodium (Synthroid Tab) 75 mcg DAILYBB PO 10/19/17 06:00 11/18/17 05:59 10/19/17 05:19 75 MCG Pantoprazole Sodium (Protonix Tab) 40 mg DAILY PO 10/19/17 09:00 11/18/17 08:59 10/19/17 08:39 40 MG Potassium Chloride (Klor-Con Tab) 20 meq HS PO 10/18/17 21:00 11/17/17 20:59 10/19/17 00:41 20 MEQ Potassium Chloride (Klor-Con Tab) 40 meq DAILY PO 10/19/17 09:00 11/18/17 08:59 10/19/17 08:39 40 MEQ Simvastatin (Zocor Tab) 20 mg QPM PO 10/18/17 21:00 11/17/17 20:59 10/18/17 21:00 20 MG Triamterene/HCTZ (Maxzide 37.5/25 Tab) 1 tab DAILY PO 10/19/17 09:00 11/18/17 08:59 10/19/17 08:40 1 TAB Miscellaneous (Iv Fluids Completed) 1 ea PRN PRN N/A 10/18/17 22:45 10/18/18 22:44 (Maeve Matt PA-C) Objective Vital Signs Date Time Temp Pulse Resp B/P (MAP) Pulse Ox O2 Delivery O2 Flow Rate FiO2 10/19/17 10:58 36.7 49 20 137/55 (82) 94 Room Air 10/19/17 08:15 36.5 57 20 141/64 (89) 94 Room Air 65 138/70 (92) 59 122/67 (85) 10/19/17 08:00 Room Air 10/19/17 05:57 36.8 53 19 125/60 (81) 94 Room Air 110/86 (94) 121/65 (83) 10/19/17 04:00 Room Air 10/19/17 00:19 36.6 60 19 138/68 (91) 94 Room Air 10/19/17 00:00 Room Air 10/18/17 20:45 36.9 56 22 151/70 Room Air 10/18/17 19:28 54 15 134/67 95 Room Air 10/18/17 17:27 51 128/59 95 Room Air 10/18/17 16:32 64 111/63 10/18/17 16:29 49 124/59 54 140/63 67 111/63 10/18/17 16:27 54 10/18/17 15:21 36.5 57 16 139/71 96 Room Air (Maeve Matt PA-C) Physical Exam General Appearance: no apparent distress Eyes: normal inspection, PERRL ENT: hearing grossly normal Neck: supple Respiratory/Chest: lungs clear, no respiratory distress, no accessory muscle use Cardiovascular: regular rate, rhythm Abdomen: normal bowel sounds, non tender, soft Extremities: no pedal edema, no calf tenderness Neurologic/Psychiatric: no motor/sensory deficits, alert, normal mood/affect, oriented x 3 Skin: normal color, warm/dry, no rash (Maeve Matt, HUBERT) Laboratory Results Last 24 Hours Test 10/18/17 16:40 10/18/17 20:54 10/19/17 00:30 10/19/17 06:32 White Blood Count 6.66 K/uL Red Blood Count 4.18 M/uL Hemoglobin 11.3 g/dL Hematocrit 36.0 % Mean Corpuscular Volume 86.1 fL Mean Corpuscular Hemoglobin 27.0 pg Mean Corpuscular Hemoglobin Concent 31.4 g/dl Platelet Count 215 K/uL Mean Platelet Volume 10.8 fL Neutrophils (%) (Auto) 71.5 % Lymphocytes (%) (Auto) 18.2 % Monocytes (%) (Auto) 7.4 % Eosinophils (%) (Auto) 2.1 % Basophils (%) (Auto) 0.3 % Neutrophils # (Auto) 4.77 K/uL Lymphocytes # (Auto) 1.21 K/uL Monocytes # (Auto) 0.49 K/uL Eosinophils # (Auto) 0.14 K/uL Basophils # (Auto) 0.02 K/uL RDW Standard Deviation 47.4 fL RDW Coefficient of Variation 14.9 % Immature Granulocyte % (Auto) 0.5 % Immature Granulocyte # (Auto) 0.03 K/uL Prothrombin Time 10.6 SECONDS Prothromb Time International Ratio 1.0 Activated Partial Thromboplast Time 24.7 SECONDS Partial Thromboplastin Ratio 1.0 Sodium Level 141 mmol/L Potassium Level 4.6 mmol/L Chloride Level 108 mmol/L Carbon Dioxide Level 23 mmol/L Anion Gap 10.0 mmol/L Blood Urea Nitrogen 35 mg/dl Creatinine 1.53 mg/dl Est Creatinine Clear Calc Drug Dose 20.1 ml/min Estimated GFR () 34.8 Estimated GFR (Non- 30.1 BUN/Creatinine Ratio 23.1 Random Glucose 94 mg/dl Estimated Average Glucose 148 mg/dl Hemoglobin A1c 6.8 % Calcium Level 9.6 mg/dl Total Bilirubin 0.4 mg/dl Direct Bilirubin 0.1 mg/dl Aspartate Amino Transf (AST/SGOT) 12 U/L Alanine Aminotransferase (ALT/SGPT) 16 U/L Alkaline Phosphatase 46 U/L Troponin I < 0.015 ng/ml < 0.015 ng/ml Total Protein 7.6 gm/dl Albumin 3.5 gm/dl Lipase 292 U/L Thyroid Stimulating Hormone (TSH) 0.420 uIu/ml Bedside Glucose 100 mg/dl 67 mg/dl Test 10/19/17 06:37 10/19/17 06:39 10/19/17 08:37 10/19/17 10:52 Bedside Glucose 155 mg/dl 173 mg/dl 139 mg/dl White Blood Count 4.98 K/uL Red Blood Count 4.08 M/uL Hemoglobin 11.2 g/dL Hematocrit 35.0 % Mean Corpuscular Volume 85.8 fL Mean Corpuscular Hemoglobin 27.5 pg Mean Corpuscular Hemoglobin Concent 32.0 g/dl RDW Standard Deviation 46.8 fL RDW Coefficient of Variation 14.8 % Platelet Count 198 K/uL Mean Platelet Volume 10.5 fL Sodium Level 141 mmol/L Potassium Level 3.9 mmol/L Chloride Level 107 mmol/L Carbon Dioxide Level 24 mmol/L Anion Gap 10.0 mmol/L Blood Urea Nitrogen 39 mg/dl Creatinine 1.44 mg/dl Est Creatinine Clear Calc Drug Dose 21.7 ml/min Estimated GFR () 37.5 Estimated GFR (Non- 32.3 BUN/Creatinine Ratio 27.1 Random Glucose 174 mg/dl Calcium Level 9.2 mg/dl Troponin I < 0.015 ng/ml (Maeve Matt, PA-C) Assessment and Plan 87 y/o female with a history of HTN, HLD, DM II w/gastroparesis, CKD stage III, hypothyroidism, fibromyalgia, depression, and GERD who presented to the ED on with a syncopal episode and fall. Pt bradycardic in ED, vital signs otherwise stable, afebrile. Head CT negative for acute abnormality. CXR no acute disease. Left ankle x-ray with some soft tissue edema, no fracture. EKG no ischemic changes. 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- STABLE Hypothyroidism- TSH WNL: Continue Synthroid 75 mcg PO qd GERD: Continue Protonix 40 mg PO qd DVT prophylaxis: Heparin 5000 units SC q12h Code status: LEVEL I, FULL Dispo: From home, lives w/ who is currently hospitalized- PT/OT and CM consulted - Family concerned w/ patient returning home (Maeve Matt, PA-C) i personally examined pt and verified all munoz points w Arturo Matt PAC feeling better now spinal stenosis, chronic weakness recent dizziness and falls anticipate [facility] tomorrow disucssed w pt and family in depth vitals noted sl elina, orthostatic sl positive with zero HR compensation. nad breathing unlabored weak/dizzy/falls -likely foundation of weakness from spinal stenosis worsened recently w BP meds - likely as frailty has progressed meds, although not increased, functionally were at "higher doses" - holding atenolol, doubt true conduction disease and likely will need to resume at lower dose. may need to reduce diuretic too later. after discharge from [facility] - decompression therapy to assist w spinal stenosis (Lauro Vasques D.O.)
--- NOTE | 2017-10-19 14:20 | ECHOCARDIOGRAM REPORT ---
*NOTICE TO RECEIVING CONSTITUTION PARTY AGENCY This information is strictly Confidential and protected under [place] law. [place] law prohibits you from making any further disclosure of this information unless further disclosure is expressly permitted by the written consent of the person to whom it pertains or is authorized by law. A general authorization for the release of medical or other information is not sufficient for this purpose. Hospital accepts no responsibility if the information is made available to any other person, INCLUDING THE PATIENT. Interpretation Summary * Name: KERRY JALLOH Study Date: 10/19/2017 07:23 AM BP: 121/65 mmHg * Patient Location: C.2E\S\E205\S\1 HR: 53 * : 1930 (M/d/yyyy) Gender: Female Height: 60 in * Age: 87 yrs Ethnicity: [place] Weight: 125 lb * Ordering Physician: Jo Hernandez * Referring Physician: Self, Referred * Performed By: Aaron Rogers RDCS * * Reason For Study: Syncope * BSA: 1.5 m2 * -- Conclusions -- * Left ventricular systolic function is normal. * No regional wall motion abnormalities noted. * Ejection Fraction = 55-60%. * There is mild concentric left ventricular hypertrophy. * Grade I diastolic dysfunction, (abnormal relaxation pattern). * There is mild mitral regurgitation. Procedure Details * A complete two-dimensional transthoracic echocardiogram was performed (2D, M-mode, Doppler and color flow Doppler). * The study was technically adequate. Left Ventricle * The left ventricle is normal in size. * There is mild concentric left ventricular hypertrophy. * Ejection Fraction = 55-60%. * Left ventricular systolic function is normal. * No regional wall motion abnormalities noted. Right Ventricle * The right ventricle is grossly normal size. * The right ventricular systolic function is normal as assessed by tricuspid annular plane systolic excursion (TAPSE) (normal >1.5 cm). Atria * The left atrial size is normal. * Right atrial size is normal. * No ASD detected; PFO is not assessed. Mitral Valve * The mitral valve is grossly normal. * There is no mitral valve stenosis. * There is mild mitral regurgitation. Tricuspid Valve * The tricuspid valve is not well visualized, but is grossly normal. * There is no tricuspid stenosis. * Significant tricuspid regurgitation is absent. Aortic Valve * The aortic valve is trileaflet. * The aortic valve opens well. * Aortic valve sclerosis mild, without significant aortic valvular stenosis. * There is no significant aortic regurgitation. Pulmonic Valve * The pulmonary valve is not well seen, but the Doppler examination is normal without significant regurgitation or stenosis. Great Vessels * The aortic root is normal size. * The pulmonary is not well visualized. Pericardium/Pleural * There is no pericardial effusion. Great Vessels * Inferior vena cava not well visualized. Left Ventricular Diastolic Function * Grade I diastolic dysfunction, (abnormal relaxation pattern). MMode 2D Measurements and Calculations IVSd 1.0 cm IVSs 1.4 cm LVIDd 3.9 cm LVIDs 2.6 cm LVPWd 0.93 cm LVPWs 1.4 cm IVS/LVPW 1.1 FS 33.0 % EDV(Teich) 64.7 ml ESV(Teich) 24.5 ml EF(Teich) 62.2 % EDV(cubed) 58.0 ml ESV(cubed) 17.5 ml EF(cubed) 69.9 % % IVS thick 30.6 % % LVPW thick 54.3 % LV mass(C)d 118.5 grams LV mass(C)dI 77.5 grams/m\S\2 LV mass(C)s 116.6 grams LV mass(C)sI 76.3 grams/m\S\2 SV(Teich) 40.3 ml SI(Teich) 26.3 ml/m\S\2 SV(cubed) 40.5 ml SI(cubed) 26.5 ml/m\S\2 Ao root diam 3.0 cm Ao root area 7.1 cm\S\2 ACS 1.9 cm LA dimension 3.2 cm asc Aorta Diam 3.4 cm LA/Ao 1.1 LVOT diam 1.9 cm LVOT area 3.0 cm\S\2 LVAd ap4 23.0 cm\S\2 LVLd ap4 7.2 cm EDV(MOD-sp4) 60.5 ml EDV(sp4-el) 62.8 ml LVAs ap4 12.5 cm\S\2 LVLs ap4 5.9 cm ESV(MOD-sp4) 23.2 ml ESV(sp4-el) 22.5 ml EF(MOD-sp4) 61.6 % EF(sp4-el) 64.1 % LVAd ap2 20.4 cm\S\2 LVLd ap2 7.0 cm EDV(MOD-sp2) 49.6 ml EDV(sp2-el) 50.8 ml LVAs ap2 10.8 cm\S\2 LVLs ap2 5.6 cm ESV(MOD-sp2) 18.2 ml ESV(sp2-el) 17.6 ml EF(MOD-sp2) 63.4 % EF(sp2-el) 65.4 % LVLd %diff -2.55 % EDV(MOD-bp) 55.1 ml LVLs %diff -4.17 % ESV(MOD-bp) 20.5 ml EF(MOD-bp) 62.8 % SV(MOD-sp4) 37.3 ml SI(MOD-sp4) 24.4 ml/m\S\2 SV(MOD-sp2) 31.5 ml SI(MOD-sp2) 20.6 ml/m\S\2 SV(MOD-bp) 34.6 ml SI(MOD-bp) 22.6 ml/m\S\2 SV(sp4-el) 40.3 ml SI(sp4-el) 26.3 ml/m\S\2 SV(sp2-el) 33.2 ml SI(sp2-el) 21.7 ml/m\S\2 Doppler Measurements and Calculations MV E max shilpa 90.6 cm/sec MV A max shilpa 104.6 cm/sec MV E/A 0.87 MV dec time 0.24 sec Ao V2 max 134.8 cm/sec Ao max PG 7.3 mmHg Ao max PG (full) 3.7 mmHg KELLIE(V,A) 2.1 cm\S\2 KELLIE(V,D) 2.1 cm\S\2 LV V1 max PG 3.6 mmHg LV V1 max 94.9 cm/sec PA V2 max 79.4 cm/sec PA max PG 2.5 mmHg TR max shilpa 253.6 cm/sec
--- NOTE | 2017-10-19 15:02 | Discharge Summary ---
Discharge Summary Date of Service Oct 19, 2017. Discharge Summary Admission Date: Oct 18, 2017 at 19:27 Discharge Date: Oct 19, 2017 Discharge Disposition: Rehab Principal Diagnosis: Syncope Problems/Secondary Diagnoses: Syncope fall bradycardia HTN HLD DM II- HgbA1c 6.8% CKD stage III Hypothyroidism GERD vertigo mitral regurgitation Immunizations: Have You Had Influenza Vaccine: Yes Influenza Vaccine Date: Aug 08, 2012 History of Tetanus Vaccine?: Yes History of Pneumococcal: Yes Pneumococcal Date: Aug 08, 2012 History of Hepatitis B Vaccine: Unknown Procedures: HEAD WITHOUT CONTRAST (CT) CT DOSE: 601.98 mGy.cm HISTORY: Mental status change eval for bleed TECHNIQUE: Multiaxial CT images of the head were performed without the use of intravenous contrast. A dose lowering technique was utilized adhering to the principles of ALARA. Comparison: 06/07/2013 Findings: Prior partial left mastoidectomy. This has been discussed previously. The calvarium and skull base are intact. The ventricles and sulci are within normal limits. There is no mass, hematoma, midline shift, or acute infarct. Moderate age-related atrophy and chronic small vessel change. Impression: Chronic and age-related change. No acute process. The above report was generated using voice recognition software. It may contain grammatical, syntax or spelling errors. Electronically signed by: Jorge Durant M.D. 10/18/2017 4:56 PM Dictated Date/Time: 10/18/2017 4:54 PM The status of this report is Signed. Draft = Not yet reviewed or approved by Radiologist. Signed = Reviewed and approved by Radiologist. CHEST 2 VIEWS ROUTINE CLINICAL HISTORY: eval fo pna dyspnea COMPARISON STUDY: 06/07/2013 FINDINGS: The bones soft tissues and hemidiaphragms are normal. The cardiomediastinal silhouette is normal. The lungs are clear. The pulmonary vasculature is normal. IMPRESSION: Negative chest. The above report was generated using voice recognition software. It may contain grammatical, syntax or spelling errors. Electronically signed by: Jorge Durant M.D. 10/18/2017 5:19 PM Dictated Date/Time: 10/18/2017 5:19 PM The status of this report is Signed. Draft = Not yet reviewed or approved by Radiologist. Signed = Reviewed and approved by Radiologist. L ANKLE MIN 3 VIEWS ROUTINE CLINICAL HISTORY: eval for fx COMPARISON: None. DISCUSSION: Moderate degenerative change. Heel spur. Mild soft tissue edema. There is no evidence for soft tissue swelling. IMPRESSION: Degenerative change. Moderate soft tissue edema. No acute bony abnormality. The above report was generated using voice recognition software. It may contain grammatical, syntax or spelling errors. Electronically signed by: Jorge Durant M.D. 10/18/2017 5:18 PM Dictated Date/Time: 10/18/2017 5:17 PM The status of this report is Signed. Draft = Not yet reviewed or approved by Radiologist. Signed = Reviewed and approved by Radiologist. BILATERAL CAROTID DOPPLER STUDY HISTORY: syncope COMPARISON: None. TECHNIQUE: Real-time, grayscale, and color Doppler sonography of the carotid arteries was performed. Imaging reviewed in the transverse and longitudinal planes. All measurements were calculated based on NASCET criteria. FINDINGS: Antegrade flow is seen in the bilateral vertebral arteries. The brachial pressures were not obtained. Mild calcified plaque within the bilateral carotid bifurcations. The peak systolic velocity within the right ICA is 73 cm/s. The right systolic ratio is 1.5. The peak systolic velocity within the left ICA is 87 cm/s. The left systolic ratio is 1.3. IMPRESSION: No hemodynamically significant stenosis seen within the carotid arteries. Electronically signed by: Nicolas Ceja M.D. 10/18/2017 9:04 PM Dictated Date/Time: 10/18/2017 9:03 PM The status of this report is Signed. Draft = Not yet reviewed or approved by Radiologist. Signed = Reviewed and approved by Radiologist. ECHOCARDIOGRAM: Interpretation Summary * Name: KERRY JALLOH Study Date: 10/19/2017 07:23 AM BP: 121/65 mmHg * Patient Location: 2E\S\E205\S\1 HR: 53 * : 1930 (M/d/yyyy) Gender: Female Height: 60 in * Age: 87 yrs Ethnicity: [place] Weight: 125 lb * Ordering Physician: Jo Hernandez * Referring Physician: Self, Referred * Performed By: Aaron Rogers RDCS * * Reason For Study: Syncope * BSA: 1.5 m2 * -- Conclusions -- * Left ventricular systolic function is normal. * No regional wall motion abnormalities noted. * Ejection Fraction = 55-60%. * There is mild concentric left ventricular hypertrophy. * Grade I diastolic dysfunction, (abnormal relaxation pattern). * There is mild mitral regurgitation. Procedure Details * A complete two-dimensional transthoracic echocardiogram was performed (2D, M-mode, Doppler and color flow Doppler). * The study was technically adequate. Left Ventricle * The left ventricle is normal in size. * There is mild concentric left ventricular hypertrophy. * Ejection Fraction = 55-60%. * Left ventricular systolic function is normal. * No regional wall motion abnormalities noted. Right Ventricle * The right ventricle is grossly normal size. * The right ventricular systolic function is normal as assessed by tricuspid annular plane systolic excursion (TAPSE) (normal >1.5 cm). Atria * The left atrial size is normal. * Right atrial size is normal. * No ASD detected; PFO is not assessed. Mitral Valve * The mitral valve is grossly normal. * There is no mitral valve stenosis. * There is mild mitral regurgitation. Tricuspid Valve * The tricuspid valve is not well visualized, but is grossly normal. * There is no tricuspid stenosis. * Significant tricuspid regurgitation is absent. Aortic Valve * The aortic valve is trileaflet. * The aortic valve opens well. * Aortic valve sclerosis mild, without significant aortic valvular stenosis. * There is no significant aortic regurgitation. Pulmonic Valve * The pulmonary valve is not well seen, but the Doppler examination is normal without significant regurgitation or stenosis. Great Vessels * The aortic root is normal size. * The pulmonary is not well visualized. Pericardium/Pleural * There is no pericardial effusion. Great Vessels * Inferior vena cava not well visualized. Left Ventricular Diastolic Function * Grade I diastolic dysfunction, (abnormal relaxation pattern). Medication Reconciliation Continued Medications: Amlodipine Besylate (Norvasc) 5 Mg Tab 5 MG PO DAILY, TAB Aspirin (Aspirin) 81 Mg Tab 81 MG PO DAILY Calcium Carbonate (Calcium 600) 600 Mg Tab 1200 MG PO DAILY Cholecalciferol (Vitamin D 1000 Unit) 1,000 Unit Cap 1000 INTER.UNIT PO DAILY, CAP Levothyroxine Sodium (Levothyroxine Sodium) 75 Mcg Tab 75 MCG PO DAILY Metformin Hcl Er (Glucophage Er) 500 Mg Tab 500 MG PO BID, TAB [place]-3 Fatty Acids ([place] 3) 1 Cap Cap 1000 MG PO BID Pantoprazole Sodium (Protonix) 40 Mg Tab 40 MG PO DAILY, TAB Potassium Ext Rel (Klor-Con) 20 Meq Tabcr 40 MEQ PO DAILY, TAB takes at breakfast Potassium Ext Rel (Klor-Con) 20 Meq Tabcr 20 MEQ PO HS, TAB Simvastatin (Zocor) 20 Mg Tab 20 MG PO QPM, TAB Triamterene/Hctz (Triamterene/Hctz 37.5-25MG) 1 Tab Tab 1 TAB PO DAILY, TAB Discontinued Medications: Atenolol (Tenormin) 100 Mg Tab 100 MG PO DAILY, TAB Meclizine Hcl (Meclizine Hcl) 25 Mg Tab 1 TAB PO HS PRN for Dizziness or Vertigo for 10 Days, TAB Discharge Exam Review of Systems: Constitutional: No fever, No chills, No sweats, No weakness, No fatigue Eyes: No worsening of vision ENT: No hearing loss Respiratory: No cough, No shortness of breath, No hemoptysis Cardiovascular: No chest pain, No edema, No palpitations Abdomen: No pain, No nausea, No vomiting, No diarrhea, No constipation, No GI bleeding Musculoskeletal: No joint pain, No muscle pain, No swelling, No calf pain Genitourinary - Female: No dysuria, No hematuria Neurologic: No weakness, No numbness/tingling Psychiatric: No depression symptoms, No anxiety Endocrine: No fatigue Hematologic / Lymphatic: No abnormal bleeding/bruising Integumentary: No rash, No itch, No new/changing skin lesions Physical Exam: General Appearance: no apparent distress Eyes: normal inspection, PERRL ENT: hearing grossly normal Neck: supple Respiratory/Chest: lungs clear, no respiratory distress, no accessory muscle use Cardiovascular: + bradycardia (regular rhythm ) Abdomen / GI: normal bowel sounds, non tender, soft Extremities: no calf tenderness, no pedal edema Neurologic/Psychiatric: alert, normal mood/affect, oriented x 3 Skin: normal color, warm/dry, no rash Hospital Course Admission H&P: This is an 87 y/o female with a history of HTN, HLD, DM II w/gastroparesis, CKD stage III, hypothyroidism, fibromyalgia, depression, and GERD who presented to the ED on 10/18 with a syncopal episode and fall. The patient had a fall 4 days ago on 10/14. She does not remember the fall or what happened beforehand. She woke up on the floor of her kitchen with her chair turned over, so she believes she passed out and then fell. She also awoke with a small amount of vomit on her cheek. She does not recall any symptoms prior to the fall/syncope. She fell on her right side but denies any pain there. She does report a mild 1/10 pain in the back of her head. She states she has had issues with unsteady gait for several months and sometimes relies on nearby pretty/furniture to help her get around. She denies any worsening of her gait, worsening weakness, dizziness , lightheadedness, changes in vision, numbness or tingling since the fall. She denies any changes in mental status or slurred speech. She came to the ED at the behest of her daughter. The patient does admit to some diffuse abdominal pain, which is chronic for her. She also notes a chronic, non-productive cough and states that she sometimes gets a very brief, sharp jab of pain in her left chest intermittently. The patient denies fevers, chills, sweats, palpitations, claudication, wheezing, shortness of breath, nausea, vomiting, dysuria, hematuria, urinary retention, paralysis, weakness, numbness and tingling. Physical Exam Vital Signs Date Time Temp Pulse Resp B/P (MAP) Pulse Ox O2 Delivery O2 Flow Rate FiO2 10/18/17 19:28 54 15 134/67 95 Room Air 10/18/17 17:27 51 128/59 95 Room Air 10/18/17 16:32 64 111/63 10/18/17 16:29 49 124/59 54 140/63 67 111/63 10/18/17 16:27 54 10/18/17 15:21 36.5 57 16 139/71 96 Room Air General appearance: Well-developed, well-nourished, no apparent distress Head: Normocephalic, atraumatic Eyes: Normal inspection, PERRL, EOMI ENT: Normal ENT inspection, hearing grossly normal, pharynx normal Neck: Supple, no JVD, trachea midline Respiratory/Chest: +Slight fine crackles in bases. Normal breath sounds, no respiratory distress Cardiovascular: +Bradycardia. Regular rhythm, no gallop, no murmur Abdomen/GI: +Diffuse tenderness. Normal bowel sounds, soft Extremities/Musculoskeletal: Normal inspection, no calf tenderness, no pedal edema Neurological/Psych: Alert, normal mood/affect, oriented x 3 Skin: Normal color, warm/dry, no rash Hospital Course: 87 y/o female with a history of HTN, HLD, DM II w/gastroparesis, CKD stage III, hypothyroidism, fibromyalgia, depression, and GERD who presented to the ED on with a syncopal episode and fall. Pt bradycardic in ED, vital signs otherwise stable, afebrile. Head CT negative for acute abnormality. CXR no acute disease. Left ankle x-ray with some soft tissue edema, no fracture. EKG no ischemic changes. Syncope and fall, ?secondary to bradycardia: - Admit to telemetry for cardiac monitoring- no acute events, 1st degree AV block, bradycardia in 50-60s - Cardiac enzymes- negative x3 - EKG QAM and PRN for chest pain- no ischemic changes noted - ECHO obtained and reviewed- preserved EF, grade I diastolic dysfunction, LVH, mild mitral regurgitation, no wall abnormalities - Orthostatic BPs - Carotid US w/out significant stenosis - Head CT- unremarkable for acute intracranial findings - UA negative - Stop Atenolol HTN, HLD- STABLE: - Continue ASA 81 mg daily, Norvasc 5 mg PO qd, Maxzide 37.5/25 1 tab PO qd, Zocor 20 mg PO hs - Hold Atenolol due to above DM II- HgbA1c 6.8%: - Hold Metformin while inpatient- resume at discharge - BSG ACHS and ISS CKD stage 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 Discharge Instructions Please refer to the electronic Patient Visit Report (Discharge Instructions) for additional information. Follow-Up Follow-up with [facility] provider within 24-48 hours Please follow-up with your PCP within 5-7 days after discharge from [facility] Please follow-up/keep all of your subspecialty appointments Additional Copies To Willian Mora M.D.; [facility]
[2017-10-19 15:05] VITALS: BP 117/52; PULSE 57; TEMP 36.3; O2SAT 96
--- NOTE | 2017-10-19 15:23 | Discharge Instructions ---
Discharge Instructions Date of Service Oct 19, 2017. Admission Reason for Admission: Fall, Syncope Discharge Discharge Diagnosis / Problem: Syncope, fall, bradycardia Discharge Goals Goal(s): Decrease discomfort, Improve function, Increase independence, Improve disease control, Learn about illness, Diagnostic testing, Therapeutic intervention, Prevent Disease Progression Activity Recommendations Activity Level: Assistance Required Therapies: Physical Therapy, Occupational Therapy . Additional Information Patient informed of condition: Yes Advance Directives: No DNR: No Level of Care: Acute Rehab Communicable Disease: No Prognosis: Stable Doll Catheter: No Instructions / Follow-Up Instructions / Follow-Up Syncope and fall, ?secondary to bradycardia: - Admit to telemetry for cardiac monitoring- no acute events, 1st degree AV block, bradycardia in 50-60s - Cardiac enzymes- negative x3 - EKG QAM and PRN for chest pain- no ischemic changes noted - ECHO obtained and reviewed- preserved EF, grade I diastolic dysfunction, LVH, mild mitral regurgitation, no wall abnormalities - Orthostatic BPs - Carotid US w/out significant stenosis - Head CT- unremarkable for acute intracranial findings - UA negative - Stop Atenolol HTN, HLD- STABLE: - Continue ASA 81 mg daily, Norvasc 5 mg PO qd, Maxzide 37.5/25 1 tab PO qd, Zocor 20 mg PO hs - Hold Atenolol due to above DM II- HgbA1c 6.8%: - Hold Metformin while inpatient- resume at discharge - BSG ACHS and ISS CKD stage 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 Hypothyroidism- TSH WNL: Continue Synthroid 75 mcg PO qd GERD: Continue Protonix 40 mg PO qd DVT prophylaxis: Heparin 5000 units SC q12h Code status: LEVEL I, FULL Dispo: Discharge to [facility] FOLLOW[facility]UPS: [facility] Please follow-up with your PCP within 5-7 days after discharge from [facility] Please follow-up/keep all of your subspecialty appointments Current Hospital Diet Patient's current hospital diet: Diabetes Type 2 Diet, AHA Diet (Heart Healthy) Discharge Diet Recommended Diet: AHA Diet (Heart Healthy), Diabetes Type 2 Diet Pending Studies Studies pending at discharge: no Physician Orders On Transfer Special Precautions: Fall precautions Dressing Changes: None IV Therapy: None Vital Signs: Routine POLST Discussion: Not Applicable Laboratory Results Hemoglobin A1c Test 10/18/17 16:40 Range/Units Estimated Average Glucose 148 mg/dl Hemoglobin A1c 6.8 H 4.5-5.6 % Medical Emergencies . Who to Call and When: Medical Emergencies: If at any time you feel your situation is an emergency, please call 911 immediately. . Non-Emergent Contact Non-Emergency issues call your: Primary Care Provider Call Non-Emergent contact if: you have any medication questions . . "Provider Documentation" section prepared by Maeve Matt. . Core Measure Problem Core Measures: None
[2017-10-19 19:15] VITALS: BP_SYST 122; BP_SYST 133; BP_SYST 145; BP_DIAS 58; BP_DIAS 60; PULSE 58; TEMP 36.7; O2SAT 94
[2017-10-19] MEDS: SIMVASTATIN 20 MG TAB PO SCH (21:01)
[2017-10-20 00:21] VITALS: BP 139/73; PULSE 60; TEMP 36.8; O2SAT 97
[2017-10-20 04:04] VITALS: BP 129/60; PULSE 54; TEMP 36.7; O2SAT 97
[2017-10-20 06:16] LABS: HEMATOCRIT 34.9 % (37-47); HEMOGLOBIN 11.2 g/dL (12.0-16.0); MEAN CELL VOLUME 85.7 fL (80-100); MEAN CORPUSCULAR HEMOGLOBIN 27.5 pg (25-34); MEAN CORPUSCULAR HGB CONC 32.1 g/dl (32-36); MEAN PLATELET VOLUME 10.9 fL (7.4-10.4); PLATELET COUNT 195 K/uL (130-400); RED CELL DISTRIBUTION WIDTH CV 14.6 % (11.5-14.5); RED CELL DISTRIBUTION WIDTH SD 45.8 fL (36.4-46.3); WHITE BLOOD COUNT 6.16 K/uL (4.8-10.8)
[2017-10-20] MEDS: LEVOTHYROXINE 75 MCG TAB PO SCH (06:31)
[2017-10-20 06:48] LABS: CREATININE 1.42 mg/dl (0.60-1.20)
[2017-10-20] MEDS: INSULIN ASPART 100 UNITS/ML 3 ML PEN SC SCH ×4 (07:00→21:11)
[2017-10-20 07:10] VITALS: BP 138/67; PULSE 54; TEMP 36.6; O2SAT 95
[2017-10-20] MEDS: CHOLECALCIFEROL 1000 INTER.UNIT TAB PO SCH (07:41)
[2017-10-20] MEDS: ASPIRIN 81 MG ECTAB PO SCH (07:41)
[2017-10-20] MEDS: POTASSIUM CHLORIDE 20 MEQ TABCR PO SCH ×2 (07:42→21:07)
[2017-10-20] MEDS: AMLODIPINE BESYLATE 5 MG TAB PO SCH (07:42)
[2017-10-20] MEDS: PANTOprazole SOD 40 MG TAB PO SCH (07:42)
[2017-10-20] MEDS: TRIAMTERENE/HCTZ 37.5/25MG TAB PO SCH (07:43)
[2017-10-20] MEDS: HEPARIN SOD 5000 UNIT/0.5 ML CARP SQ SCH ×2 (07:43→21:00)
[2017-10-20 12:00] VITALS: BP 146/72; PULSE 58; TEMP 36.9; O2SAT 95
--- NOTE | 2017-10-20 13:37 | Hospitalist Progress Note ---
Hospitalist Progress Note Date of Service Oct 20, 2017. (Maeve Matt ., HUBERT) Subjective Pt evaluation today including: conversation w/ patient, physical exam, lab review, review of inpatient medication list Voiding: no voiding problems Patient resting in bed. Wants to get to rehab [facility] because of too many people in/out of the room. Eating and drinking OK. Patient denies any fever, chills, sweats, lightheadedness, dizziness, vision changes, CP, palpitations, edema, SOB, wheezing, cough, abdominal pain, nausea, vomiting, diarrhea, urinary symptoms, melena, numbness/tingling, weakness, muscle/joint pain, anxiety/depression, active bleeding, or new skin discoloration/changes. (Maeve Matt ., SHAYNEC) Medications Current Inpatient Medications Medications (Trade) Dose Ordered Sig/Veronica Route Start Time Stop Time Status Last Admin Dose Admin Heparin Sodium (Porcine) (Heparin Sq 5000 Unit/0.5ml) 5,000 unit Q12 SQ 10/18/17 21:00 11/17/17 20:59 10/19/17 21:03 5,000 UNIT Acetaminophen (Tylenol Tab) 650 mg Q4H PRN PO 10/18/17 19:30 11/17/17 19:29 Al Hydrox/Mg Hydrox/Simethicone (Maalox Max Susp) 15 ml Q4H PRN PO 10/18/17 19:30 11/17/17 19:29 Magnesium Hydroxide (Milk Of Magnesia Susp) 30 ml Q12H PRN PO 10/18/17 19:30 11/17/17 19:29 Ondansetron HCl (Zofran Inj) 4 mg Q6H PRN IV 10/18/17 19:30 11/17/17 19:29 Polyethylene (Miralax Powder Packet) 17 gm DAILY PRN PO 10/18/17 19:30 11/17/17 19:29 Insulin Aspart (novoLOG ASPART) SLIDING SCALE If C... ACHS SC 10/18/17 21:00 11/17/17 20:59 10/19/17 17:37 2 UNITS Glucose (Glucose 40% Gel) 15-30 GRAMS 15 GRAMS... UD PRN PO 10/18/17 19:30 11/17/17 19:29 Glucose (Glucose Chew Tab) 4-8 Tablets 4 Tabl... UD PRN PO 10/18/17 19:30 11/17/17 19:29 Dextrose (Dextrose 50% 50ML Syringe) 25-50ML OF 50% DW IV FOR... UD PRN IV 10/18/17 19:30 11/17/17 19:29 Glucagon (Glucagon Inj) 1 mg UD PRN SQ 10/18/17 19:30 11/17/17 19:29 Amlodipine Besylate (Norvasc Tab) 5 mg DAILY PO 10/19/17 09:00 11/18/17 08:59 10/20/17 07:42 5 MG Aspirin (Ecotrin Tab) 81 mg DAILY PO 10/19/17 09:00 11/18/17 08:59 10/20/17 07:41 81 MG Cholecalciferol (Vitamin D Tab) 1,000 inter.unit DAILY PO 10/19/17 09:00 11/18/17 08:59 10/20/17 07:41 1,000 INTER.UNIT Levothyroxine Sodium (Synthroid Tab) 75 mcg DAILYBB PO 10/19/17 06:00 11/18/17 05:59 10/20/17 06:31 75 MCG Pantoprazole Sodium (Protonix Tab) 40 mg DAILY PO 10/19/17 09:00 11/18/17 08:59 10/20/17 07:42 40 MG Potassium Chloride (Klor-Con Tab) 20 meq HS PO 10/18/17 21:00 11/17/17 20:59 10/19/17 21:02 20 MEQ Potassium Chloride (Klor-Con Tab) 40 meq DAILY PO 10/19/17 09:00 11/18/17 08:59 10/20/17 07:42 40 MEQ Simvastatin (Zocor Tab) 20 mg QPM PO 10/18/17 21:00 11/17/17 20:59 10/19/17 21:01 20 MG Triamterene/HCTZ (Maxzide 37.5/25 Tab) 1 tab DAILY PO 10/19/17 09:00 11/18/17 08:59 10/20/17 07:43 1 TAB Miscellaneous (Iv Fluids Completed) 1 ea PRN PRN N/A 10/18/17 22:45 10/18/18 22:44 (Maeve Matt PA-C) Objective Vital Signs Date Time Temp Pulse Resp B/P (MAP) Pulse Ox O2 Delivery O2 Flow Rate FiO2 10/20/17 12:00 Room Air 10/20/17 08:00 Room Air 10/20/17 07:10 36.6 54 20 138/67 (90) 95 Room Air 10/20/17 04:04 36.7 54 17 129/60 (83) 97 Room Air 10/20/17 04:00 Room Air 10/20/17 00:21 36.8 60 19 139/73 (95) 97 Room Air 10/20/17 00:00 Room Air 10/19/17 20:00 Room Air 10/19/17 19:15 36.7 58 18 133/60 (84) 94 Room Air 145/58 (87) 122/60 (80) 10/19/17 16:11 Room Air 10/19/17 15:05 36.3 57 18 117/52 (73) 96 Room Air (Maeve Matt PA-C) Physical Exam General Appearance: no apparent distress Eyes: normal inspection, PERRL ENT: hearing grossly normal Neck: supple Respiratory/Chest: lungs clear, no respiratory distress, no accessory muscle use Cardiovascular: + bradycardia (regular rhythm ) Abdomen: normal bowel sounds, non tender, soft Extremities: no pedal edema, no calf tenderness Neurologic/Psychiatric: no motor/sensory deficits, alert, normal mood/affect, oriented x 3 Skin: normal color, warm/dry, no rash (Maeve Matt PA-C) Laboratory Results Last 24 Hours Test 10/19/17 15:00 10/19/17 16:20 10/19/17 20:24 10/20/17 05:36 Urine Color YELLOW Urine Appearance CLEAR Urine pH 6.5 Urine Specific [place] 1.015 Urine Protein NEG Urine Glucose (UA) NEG Urine Ketones NEG Urine Occult Blood NEG Urine Nitrite NEG Urine Bilirubin NEG Urine Urobilinogen NEG Urine Leukocyte Esterase NEG Urine WBC (Auto) 0 /hpf Urine RBC (Auto) 0-4 /hpf Urine Hyaline Casts (Auto) 1-5 /lpf Urine Epithelial Cells (Auto) 5-10 /lpf Urine Bacteria (Auto) NEG Bedside Glucose 135 mg/dl 127 mg/dl White Blood Count 6.16 K/uL Red Blood Count 4.07 M/uL Hemoglobin 11.2 g/dL Hematocrit 34.9 % Mean Corpuscular Volume 85.7 fL Mean Corpuscular Hemoglobin 27.5 pg Mean Corpuscular Hemoglobin Concent 32.1 g/dl RDW Standard Deviation 45.8 fL RDW Coefficient of Variation 14.6 % Platelet Count 195 K/uL Mean Platelet Volume 10.9 fL Sodium Level 140 mmol/L Potassium Level 4.0 mmol/L Chloride Level 107 mmol/L Carbon Dioxide Level 26 mmol/L Anion Gap 7.0 mmol/L Blood Urea Nitrogen 34 mg/dl Creatinine 1.42 mg/dl Est Creatinine Clear Calc Drug Dose 22.0 ml/min Estimated GFR () 38.1 Estimated GFR (Non- 32.9 BUN/Creatinine Ratio 24.2 Random Glucose 150 mg/dl Calcium Level 9.0 mg/dl Test 10/20/17 06:39 10/20/17 10:36 Bedside Glucose 167 mg/dl 172 mg/dl (Maeve Matt, PA-C) Assessment and Plan 87 y/o female with a history of HTN, HLD, DM II w/gastroparesis, CKD stage III, hypothyroidism, fibromyalgia, depression, and GERD who presented to the ED on with a syncopal episode and fall. Pt bradycardic in ED, vital signs otherwise stable, afebrile. Head CT negative for acute abnormality. CXR no acute disease. Left ankle x-ray with some soft tissue edema, no fracture. EKG no ischemic changes. Syncope and fall, ?secondary to bradycardia: - Admit to telemetry for cardiac monitoring- no acute events, 1st degree AV block, bradycardia in 50-60s- will transfer to med/surg today - Cardiac enzymes- negative x3 - EKG QAM and PRN for chest pain- no ischemic changes noted - ECHO obtained and reviewed- preserved EF, grade I diastolic dysfunction, LVH, mild mitral regurgitation, no wall abnormalities - Orthostatic BPs - Carotid US w/out significant stenosis - Head CT- unremarkable for acute intracranial findings - UA negative - Stop Atenolol for now- continue to monitor once d/c'ed to rehab, may require low dose HTN, HLD- STABLE: - Continue ASA 81 mg daily, Norvasc 5 mg PO qd, Maxzide 37.5/25 1 tab PO qd, Zocor 20 mg PO hs - Hold Atenolol due to above DM II- HgbA1c 6.8%: - Hold Metformin while inpatient- resume at discharge - BSG ACHS and ISS CKD stage III- baseline [employer] 1.40- STABLE Hypothyroidism- TSH WNL: Continue Synthroid 75 mcg PO qd Vertigo- was placed on Meclizine by PCP but discontinued due to adverse reaction (hallucinations) GERD: Continue Protonix 40 mg PO qd DVT prophylaxis: Heparin 5000 units SC q12h Code status: LEVEL I, FULL Dispo: Discharge to rehab pending approval- CM and PT/OT following (Maeve Matt, PA-C) i personally examined pt and verified all munoz points w Arturo SANCHEZ feeling ok wants to go to rehab - no beds vitals noted nad breathing unlabored no pallor or icterus weakness - multifactorial - acute w dizziness due to BP meds - atenolol on hold - may need resumed at lower dose but starting to appear more like permanent DC. also consider weaning diuretic if any dizziness persists -and chronic w spinal stenosis - for [facility] rehab; then decompression therapy w either Dr Teague or Dr Quintero after discharge from [facility] stable for med surg (Lauro Vasques DSahryn.)
[2017-10-20 15:36] VITALS: BP 140/65; PULSE 52; TEMP 36.3; O2SAT 94
[2017-10-20 16:50] VITALS: BP 138/76; PULSE 53; TEMP 36.5; O2SAT 98
[2017-10-20] MEDS: SIMVASTATIN 20 MG TAB PO SCH (21:08)
[2017-10-21 00:11] VITALS: BP 132/71; PULSE 64; TEMP 36.6; O2SAT 96
[2017-10-21] MEDS: LEVOTHYROXINE 75 MCG TAB PO SCH (05:37)
[2017-10-21 07:02] VITALS: BP 132/72; PULSE 50; TEMP 36.6; O2SAT 96
[2017-10-21 07:17] LABS: HEMATOCRIT 35.2 % (37-47); HEMOGLOBIN 11.3 g/dL (12.0-16.0); MEAN CELL VOLUME 85.9 fL (80-100); MEAN CORPUSCULAR HEMOGLOBIN 27.6 pg (25-34); MEAN CORPUSCULAR HGB CONC 32.1 g/dl (32-36); MEAN PLATELET VOLUME 10.6 fL (7.4-10.4); PLATELET COUNT 205 K/uL (130-400); RED CELL DISTRIBUTION WIDTH CV 14.7 % (11.5-14.5); RED CELL DISTRIBUTION WIDTH SD 45.9 fL (36.4-46.3); WHITE BLOOD COUNT 6.23 K/uL (4.8-10.8)
[2017-10-21 07:56] LABS: CALCIUM 9.1 mg/dl (8.5-10.1); CREATININE 1.4 mg/dl (0.60-1.20); POTASSIUM 3.7 mmol/L (3.5-5.1)
[2017-10-21] MEDS: ASPIRIN 81 MG ECTAB PO SCH (07:57)
[2017-10-21] MEDS: AMLODIPINE BESYLATE 5 MG TAB PO SCH (07:57)
[2017-10-21] MEDS: CHOLECALCIFEROL 1000 INTER.UNIT TAB PO SCH (07:57)
[2017-10-21] MEDS: TRIAMTERENE/HCTZ 37.5/25MG TAB PO SCH (07:58)
[2017-10-21] MEDS: PANTOprazole SOD 40 MG TAB PO SCH (07:58)
[2017-10-21] MEDS: POTASSIUM CHLORIDE 20 MEQ TABCR PO SCH ×2 (07:58→20:44)
[2017-10-21] MEDS: HEPARIN SOD 5000 UNIT/0.5 ML CARP SQ SCH ×2 (08:04→20:54)
[2017-10-21] MEDS: INSULIN ASPART 100 UNITS/ML 3 ML PEN SC SCH ×4 (08:26→20:53)
--- NOTE | 2017-10-21 15:15 | Hospitalist Progress Note ---
Hospitalist Progress Note Date of Service Oct 21, 2017. (Maeve Matt ., SHAYNEC) Subjective Pt evaluation today including: conversation w/ patient, physical exam, lab review, review of inpatient medication list Voiding: no voiding problems Patient is feeling well. Eating and drinking OK. No BM in a couple of days- request Prune juice, does not want any medication at this time. No dizziness/lightheadedness/near-syncope. Patient denies any fever, chills, sweats, lightheadedness, dizziness, vision changes, CP, palpitations, edema, SOB, wheezing, cough, abdominal pain, nausea, vomiting, diarrhea, urinary symptoms, melena, numbness/tingling, weakness, muscle/joint pain, anxiety/depression, active bleeding, or new skin discoloration/changes. (Maeve Matt ., GABY-C) Medications Current Inpatient Medications Medications (Trade) Dose Ordered Sig/Veronica Route Start Time Stop Time Status Last Admin Dose Admin Heparin Sodium (Porcine) (Heparin Sq 5000 Unit/0.5ml) 5,000 unit Q12 SQ 10/18/17 21:00 11/17/17 20:59 10/21/17 08:04 5,000 UNIT Acetaminophen (Tylenol Tab) 650 mg Q4H PRN PO 10/18/17 19:30 11/17/17 19:29 Al Hydrox/Mg Hydrox/Simethicone (Maalox Max Susp) 15 ml Q4H PRN PO 10/18/17 19:30 11/17/17 19:29 Magnesium Hydroxide (Milk Of Magnesia Susp) 30 ml Q12H PRN PO 10/18/17 19:30 11/17/17 19:29 Ondansetron HCl (Zofran Inj) 4 mg Q6H PRN IV 10/18/17 19:30 11/17/17 19:29 Polyethylene (Miralax Powder Packet) 17 gm DAILY PRN PO 10/18/17 19:30 11/17/17 19:29 Insulin Aspart (novoLOG ASPART) SLIDING SCALE If C... ACHS SC 10/18/17 21:00 11/17/17 20:59 10/21/17 13:21 4 UNITS Glucose (Glucose 40% Gel) 15-30 GRAMS 15 GRAMS... UD PRN PO 10/18/17 19:30 11/17/17 19:29 Glucose (Glucose Chew Tab) 4-8 Tablets 4 Tabl... UD PRN PO 10/18/17 19:30 11/17/17 19:29 Dextrose (Dextrose 50% 50ML Syringe) 25-50ML OF 50% DW IV FOR... UD PRN IV 10/18/17 19:30 11/17/17 19:29 Glucagon (Glucagon Inj) 1 mg UD PRN SQ 10/18/17 19:30 11/17/17 19:29 Amlodipine Besylate (Norvasc Tab) 5 mg DAILY PO 10/19/17 09:00 11/18/17 08:59 10/21/17 07:57 5 MG Aspirin (Ecotrin Tab) 81 mg DAILY PO 10/19/17 09:00 11/18/17 08:59 10/21/17 07:57 81 MG Cholecalciferol (Vitamin D Tab) 1,000 inter.unit DAILY PO 10/19/17 09:00 11/18/17 08:59 10/21/17 07:57 1,000 INTER.UNIT Levothyroxine Sodium (Synthroid Tab) 75 mcg DAILYBB PO 10/19/17 06:00 11/18/17 05:59 10/21/17 05:37 75 MCG Pantoprazole Sodium (Protonix Tab) 40 mg DAILY PO 10/19/17 09:00 11/18/17 08:59 10/21/17 07:58 40 MG Potassium Chloride (Klor-Con Tab) 20 meq HS PO 10/18/17 21:00 11/17/17 20:59 10/20/17 21:07 20 MEQ Potassium Chloride (Klor-Con Tab) 40 meq DAILY PO 10/19/17 09:00 11/18/17 08:59 10/21/17 07:58 40 MEQ Simvastatin (Zocor Tab) 20 mg QPM PO 10/18/17 21:00 11/17/17 20:59 10/20/17 21:08 20 MG Triamterene/HCTZ (Maxzide 37.5/25 Tab) 1 tab DAILY PO 10/19/17 09:00 11/18/17 08:59 10/21/17 07:58 1 TAB Miscellaneous (Iv Fluids Completed) 1 ea PRN PRN N/A 10/18/17 22:45 10/18/18 22:44 (Maeve Matt ., PA-C) Objective Vital Signs Date Time Temp Pulse Resp B/P (MAP) Pulse Ox O2 Delivery O2 Flow Rate FiO2 10/21/17 08:00 Room Air 10/21/17 07:02 36.6 50 18 132/72 (92) 96 Room Air 10/21/17 00:11 36.6 64 18 132/71 (91) 96 Room Air 10/21/17 00:00 Room Air 10/20/17 16:51 36.3 52 18 94 10/20/17 16:50 Room Air 10/20/17 16:50 36.5 53 18 138/76 (96) 98 Room Air 10/20/17 16:00 Room Air 10/20/17 15:36 36.3 52 18 140/65 (90) 94 Room Air (Maeve Matt, PA-C) Physical Exam General Appearance: no apparent distress Eyes: normal inspection, PERRL ENT: hearing grossly normal Neck: supple Respiratory/Chest: lungs clear, no respiratory distress, no accessory muscle use Cardiovascular: + bradycardia (regular rhythm ) Abdomen: normal bowel sounds, non tender, soft Extremities: no pedal edema, no calf tenderness Neurologic/Psychiatric: alert, normal mood/affect, oriented x 3 Skin: normal color, warm/dry, no rash (Maeve Matt ., PA-C) Laboratory Results Last 24 Hours Test 10/20/17 16:18 10/20/17 20:22 10/21/17 06:42 10/21/17 07:50 Bedside Glucose 145 mg/dl 138 mg/dl 156 mg/dl White Blood Count 6.23 K/uL Red Blood Count 4.10 M/uL Hemoglobin 11.3 g/dL Hematocrit 35.2 % Mean Corpuscular Volume 85.9 fL Mean Corpuscular Hemoglobin 27.6 pg Mean Corpuscular Hemoglobin Concent 32.1 g/dl RDW Standard Deviation 45.9 fL RDW Coefficient of Variation 14.7 % Platelet Count 205 K/uL Mean Platelet Volume 10.6 fL Sodium Level 139 mmol/L Potassium Level 3.7 mmol/L Chloride Level 106 mmol/L Carbon Dioxide Level 24 mmol/L Anion Gap 9.0 mmol/L Blood Urea Nitrogen 37 mg/dl Creatinine 1.40 mg/dl Est Creatinine Clear Calc Drug Dose 22.4 ml/min Estimated GFR () 38.8 Estimated GFR (Non- 33.5 BUN/Creatinine Ratio 26.4 Random Glucose 144 mg/dl Calcium Level 9.1 mg/dl Test 10/21/17 11:33 Bedside Glucose 147 mg/dl (Maeve Matt ., PAYunC) Assessment and Plan 87 y/o female with a history of HTN, HLD, DM II w/gastroparesis, CKD stage III, hypothyroidism, fibromyalgia, depression, and GERD who presented to the ED on with a syncopal episode and fall. Pt bradycardic in ED, vital signs otherwise stable, afebrile. Head CT negative for acute abnormality. CXR no acute disease. Left ankle x-ray with some soft tissue edema, no fracture. EKG no ischemic changes. Syncope and fall, ?secondary to bradycardia: - Admit to telemetry for cardiac monitoring- no acute events, 1st degree AV block, bradycardia in 50-60s- transferred to med/surg - Cardiac enzymes- negative x3 - EKG QAM and PRN for chest pain- no ischemic changes noted - ECHO obtained and reviewed- preserved EF, grade I diastolic dysfunction, LVH, mild mitral regurgitation, no wall abnormalities - Orthostatic BPs - Carotid US w/out significant stenosis - Head CT- unremarkable for acute intracranial findings - UA negative - Stop Atenolol for now- continue to monitor once d/c'ed to rehab, may require low dose HTN, HLD- STABLE: - Continue ASA 81 mg daily, Norvasc 5 mg PO qd, Maxzide 37.5/25 1 tab PO qd, Zocor 20 mg PO hs - Hold Atenolol due to above DM II- HgbA1c 6.8%: - Hold Metformin while inpatient- resume at discharge - BSG ACHS and ISS CKD stage III- 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
[2017-10-21 16:12] VITALS: O2SAT 96
[2017-10-21 17:18] VITALS: BP 115/68; PULSE 68; TEMP 36.7; O2SAT 93
[2017-10-21] MEDS: SIMVASTATIN 20 MG TAB PO SCH (20:44)
[2017-10-22 00:51] VITALS: BP 136/71; PULSE 61; TEMP 36.8; O2SAT 95
[2017-10-22 07:59] VITALS: BP 128/77; PULSE 65; TEMP 36.8; O2SAT 94
[2017-10-22] MEDS: ASPIRIN 81 MG ECTAB PO SCH (08:41)
[2017-10-22] MEDS: CHOLECALCIFEROL 1000 INTER.UNIT TAB PO SCH (08:41)
[2017-10-22] MEDS: TRIAMTERENE/HCTZ 37.5/25MG TAB PO SCH (08:41)
[2017-10-22] MEDS: POTASSIUM CHLORIDE 20 MEQ TABCR PO SCH (08:42)
[2017-10-22] MEDS: PANTOprazole SOD 40 MG TAB PO SCH (08:42)
[2017-10-22] MEDS: AMLODIPINE BESYLATE 5 MG TAB PO SCH (08:43)
[2017-10-22] MEDS: INSULIN ASPART 100 UNITS/ML 3 ML PEN SC SCH ×2 (08:54→13:07)
[2017-10-22] MEDS: HEPARIN SOD 5000 UNIT/0.5 ML CARP SQ SCH (08:55)
[2017-10-22] MEDS: LEVOTHYROXINE 75 MCG TAB PO SCH (14:42)
--- NOTE | 2017-10-22 15:20 | Discharge Summary ---
Discharge Summary Date of Service Oct 22, 2017. Discharge Summary Admission Date: Oct 18, 2017 at 19:27 Discharge Date: Oct 19, 2017 Discharge Disposition: Rehab Immunizations: Have You Had Influenza Vaccine: Yes Influenza Vaccine Date: Aug 08, 2012 History of Tetanus Vaccine?: Yes History of Pneumococcal: Yes Pneumococcal Date: Aug 08, 2012 History of Hepatitis B Vaccine: Unknown Hospital Course This includes examination of the patient, discharge planning, medication reconciliation, and communication with other providers. Discharge Instructions Please refer to the electronic Patient Visit Report (Discharge Instructions) for additional information.
[2017-10-22 15:25] VITALS: BP 152/73; PULSE 62; TEMP 36.7; O2SAT 97
[2017-10-22 15:39] VITALS: BP 152/73; PULSE 62; TEMP 36.7; O2SAT 97
== END 2017-10-22 17:26 | disposition home health service (06) ==
LOC: C.EDB 15:17 → C.2E 19:27 → ENRESERV 19:34 → C.MS4W 10-20 16:53
PROVIDERS: ADMIT Family Medicine; ATTEND Internal Medicine Sports Medicine
DX: R55 Syncope and collapse (principal); S09.90XA Unspecified injury of head, initial encounter; W07.XXXA Fall from chair, initial encounter; Y92.000 Kitchen of unspecified non-institutional (private) residence as the place of occurrence of the external cause; R00.1 Bradycardia, unspecified; I12.9 Hypertensive chronic kidney disease with stage 1 through stage 4 chronic kidney disease, or unspecified chronic kidney disease; E78.5 Hyperlipidemia, unspecified; E11.9 Type 2 diabetes mellitus without complications; N18.3 Chronic kidney disease, stage 3 (moderate); K21.9 Gastro-esophageal reflux disease without esophagitis; R42 Dizziness and giddiness; I34.0 Nonrheumatic mitral (valve) insufficiency; Z87.891 Personal history of nicotine dependence; Z79.82 Long term (current) use of aspirin; Z79.4 Long term (current) use of insulin; Z79.899 Other long term (current) drug therapy; Z82.49 Family history of ischemic heart disease and other diseases of the circulatory system; Z82.3 Family history of stroke

== ENCOUNTER → 2017-11-29 | Outpatient (CLI) | payer BC ==
[~2017-11-29] MED LIST changes: -ATEN-175 PO; -NRT/25 PO; +TRIATAB3 PO
[2017-11-29 16:46] LABS: BASO % 0.2 %; BASO ABS # 0.01 K/uL (0-0.2); EOS % 1.2 %; EOS ABS # 0.08 K/uL (0-0.5); HEMATOCRIT 36.8 % (37-47); HEMOGLOBIN 11.8 g/dL (12.0-16.0); IG# 0.01 K/uL (0.00-0.02); LYMPH % 20.7 %; LYMPH ABS # 1.34 K/uL (1.2-3.4); MEAN CELL VOLUME 86.4 fL (80-100); MEAN CORPUSCULAR HEMOGLOBIN 27.7 pg (25-34); MEAN CORPUSCULAR HGB CONC 32.1 g/dl (32-36); MEAN PLATELET VOLUME 11.1 fL (7.4-10.4); MONO ABS # 0.45 K/uL (0.11-0.59); NEUT % 70.7 %; NEUT ABS # 4.58 K/uL (1.4-6.5); PLATELET COUNT 200 K/uL (130-400); RED CELL DISTRIBUTION WIDTH CV 14.8 % (11.5-14.5); RED CELL DISTRIBUTION WIDTH SD 46.1 fL (36.4-46.3); WHITE BLOOD COUNT 6.47 K/uL (4.8-10.8)
[2017-11-29 17:03] LABS: ALT/SGPT 16 U/L (12-78); AST/SGOT 11 U/L (15-37); BLOOD UREA NITROGEN 29 mg/dl (7-18); CALCIUM 9.7 mg/dl (8.5-10.1); CARBON DIOXIDE 29 mmol/L (21-32); CREATININE 1.57 mg/dl (0.60-1.20); GLUCOSE 151 mg/dl (70-99); POTASSIUM 4.3 mmol/L (3.5-5.1); SODIUM 138 mmol/L (136-145)
[2017-11-29 17:08] LABS: ALKALINE PHOSPHATASE 55 U/L (45-117); TOTAL PROTEIN 7.6 gm/dl (6.4-8.2)
== END | disposition home or self-care (01) ==
LOC: C.LABBC 12:43
PROVIDERS: ATTEND Nurse Practitioner Adult Health
DX: R10.9 Unspecified abdominal pain (principal)

== ENCOUNTER 2019-06-19 08:42 | Inpatient (IN) ==
[2019-06-19] MEDS ORDERED: SODIUM CHLORIDE 0.9% 500 ML IV SCH (09:45)
--- NOTE | 2019-06-19 10:00 | XRay Report ---
XR chest 1V portable CLINICAL HISTORY: weakness mental status change COMPARISON STUDY: 06/04/2019 FINDINGS: Slight left basilar interstitial prominence considered chronic. Lungs otherwise appear clear. Diaphragms are smooth. No significant cardiac enlargement. IMPRESSION: Chronic change. No acute process. The above report was generated using voice recognition software. It may contain grammatical, syntax or spelling errors. Electronically signed by: Jorge Durant M.D. 06/19/2019 9:58 AM
[2019-06-19 10:05] LABS: Appearance Urine Clear (Clear); Bacteria Urine Automated 4+ (Negative); Bilirubin Urine Negative (Negative); Blood Urine Negative (Negative); Color Urine Yellow; Epithelial Cell Urine Auto 20-30 /lpf (0-5); Glucose Urine UA Negative (Negative); Ketones Urine Negative (Negative); Leukocyte Esterase Urine Negative (Negative); Nitrite Urine Negative (Negative); RBC Urine Automated 0-4 /hpf (0-4); Specific Gravity Urine 1.013 (1.000-1.030); Urobilinogen Urine Negative (Negative); pH Urine 7.5 (4.5-7.5)
[2019-06-19 10:06] LABS: Protein Urine 2+ (Negative)
[2019-06-19 10:14] LABS: Basophils # (auto) 0.01 K/uL (0-0.2); Basophils % (auto) 0.2 %; Eosinophils # (auto) 0.06 K/uL (0-0.5); Hematocrit (blood only) 38.2 % (37-47); Hemoglobin 12.1 g/dL (12.0-16.0); Immature Granulocytes # (auto) 0.01 K/uL (0.00-0.02); Immature Granulocytes % (auto) 0.2 %; Lymphocytes # (auto) 0.68 K/uL (1.2-3.4); Lymphocytes % (auto) 11.8 %; Mean Corpuscular Hemoglobin 27.5 pg (25-34); Mean Corpuscular Hgb Conc 31.7 g/dL (32-36); Mean Corpuscular Volume 86.8 fL (80-100); Mean Platelet Volume 11.9 fL (7.4-10.4); Monocytes % (auto) 10.4 %; Neutrophils # (auto) 4.39 K/uL (1.4-6.5); Neutrophils % (auto) 76.4 %; Platelet Count 214 K/uL (130-400); RDW Coefficient of Variation 14.4 % (11.5-14.5); RDW Standard Deviation 45.8 fL (36.4-46.3); White Blood Count 5.75 K/uL (4.8-10.8)
[2019-06-19 10:21] LABS: Alanine Aminotransferase 14 U/L (12-78); Albumin Level 3.7 gm/dl (3.4-5.0); Aspartate Aminotransferase 13 U/L (15-37); BUN Creatinine Ratio 20.7 (10-20); Blood Urea Nitrogen 25 mg/dl (7-18); Carbon Dioxide 29 mmol/L (21-32); Chloride 105 mmol/L (98-107); Creatinine Clr Calc Pharmacy 27.2 ml/min; Est GFR (African American) 45.9; Est GFR (Non-African American) 39.6; Glucose 146 mg/dl (70-99); Potassium 3.3 mmol/L (3.5-5.1); Sodium 141 mmol/L (136-145)
--- NOTE | 2019-06-19 10:22 | Emergency Department Note ---
Entered by Raeann Johnson acting as a scribe for History of Present Illness General Chief complaint: Fall Time Seen by Provider: 06/19/19 09:28 Source: patient History of Present Illness Onset (ago): minute(s) (prior to arrival) Location: head (general) Pain Consistency: + other (episode) Maximum Pain Intensity: 4 Quality: + other (fall) Associated symptoms: + headaches and + other (neck pain) The patient is a 88 year old female who presents to the Emergency Room following an episode of a fall that occurred just prior to arrival. The patient reports a headache and neck pain. The patient's family states the patient fell on her way to breakfast at the [facility] where the patient resides. The patient's family notes the patient has fallen three times in the past two weeks. The patient's family states the patient has dementia and diabetes. The patient's family states the patient is not on blood thinners. Home Medications Home Medications Medication Instructions Recorded Confirmed Type amlodipine 5 mg PO QAM #0 tab 06/08/13 06/19/19 History aspirin 81 mg PO QAM #0 06/08/13 06/19/19 History calcium carbonate [Calcium 600] 600 mg PO QAM #0 06/08/13 06/19/19 History cholecalciferol (vitamin D3) 2,000 unit PO QAM #0 cap 06/08/13 06/19/19 History metformin 500 mg PO BID #0 tab 06/08/13 06/19/19 History [id number]-fish oil [[place]-3 1 cap PO BIDM #0 06/08/13 06/19/19 History Fish Oil] simvastatin 20 mg PO HS #0 tab 06/08/13 06/19/19 History potassium chloride [Klor-Con M20] 10 meq PO QAM #0 tab 12/24/16 06/19/19 History levothyroxine 50 mcg PO QAM 06/04/19 06/19/19 History metoclopramide HCl 5 mg PO TIDM 06/04/19 06/19/19 History pantoprazole 20 mg PO QAM 06/04/19 06/19/19 History atenolol 100 mg PO QAM 06/19/19 06/19/19 History Allergies Allergy/AdvReac Type Severity Reaction Status Date / Time metronidazole Allergy Unknown RASH Verified 06/19/19 09:17 red dye Allergy Unknown RASH Verified 06/19/19 09:17 tinidazole Allergy Unknown RASH Verified 06/19/19 09:17 yellow dye Allergy Unknown RASH Verified 06/19/19 09:17 Past Med/Surg History Medical History Dementia 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 and A total of 10 systems reviewed and were otherwise negative Physical Exam Vital Signs Vital Signs - 24 hr 06/19/19 09:02 06/19/19 10:41 06/19/19 11:36 Temperature 36.6 C Temperature Source Oral Sepsis Recent Fever Within 48 Hours No Sepsis Action Taken by Nursing No Action Required Pulse Rate 49 L Pulse Rate [Apical] 49 L 52 L Pulse Rhythm [Apical] Regular Regular Pulse Strength [Apical] Normal Respiratory Rate 20 20 20 Respiratory Effort / Characteristics Non-Labored Spontaneous Non-Labored Spontaneous Non-Labored Respiratory Depth Normal Normal Normal Respiratory Pattern Regular Regular Blood Pressure 178/96 H Blood Pressure [Right Arm] 201/85 H 170/76 H Blood Pressure Mean 123 Blood Pressure Mean [Right Arm] 123 107 Blood Pressure Position [Right Arm] Lying Pulse Oximetry 94 97 95 Oxygen Delivery Method Room Air Room Air Room Air General: Non-ill appearing older female in no acute distress. Answers some questions appropriately. HEENT: Bruising right face, old and new. Normal cephalic atraumatic. Pupils are equal round and reactive to light. Extraocular movements are intact. Oropharynx is pink with moist mucous membranes. No swelling of the mouth lips or tongue. Neck: Supple with a midline trachea. No meningeal signs or stiffness, no JVD or bruits. No Stridor. Chest: Clear to auscultation bilaterally. No wheezes or rhonchi. No increased work of breathing. Heart: regular rate and rhythm. Abdomen: Soft nontender, nondistended without rebound guarding or rigidity. Extremities: No cyanosis clubbing or edema. No calf tenderness or asymmetry Spine/Back. Non tender to palpation. No CVA tenderness Skin: Good turgor without rashes. Neurologic exam: Cranial nerves two through 12 are intact. Motor and sensation are intact and symmetrical throughout. Course 0925: Past medical records reviewed. The patient was evaluated in room B09. A complete history and physical exam was performed. 1132: Upon reevaluation, I discussed findings and results with the patient's family. They verbalized agreement of the treatment plan. I spoke with Dr. Capone of the [facility] Hospitalist Service. The patient will be evaluated for further management and care. Administered Medications Discontinued Medications Sodium Chloride (Nss) 500 mls @ 999 mls/hr IV .Q31M JESSICA Stop: 06/19/19 10:15 Last Infusion: 06/19/19 11:06 Dose: 0 mls/hr Documented by: [id number] Admin: 06/19/19 09:46 Dose: 999 mls/hr Documented by: [id number] Olanzapine (Zyprexa) 2.5 mg IM NOW ONE Stop: 06/19/19 14:31 Last Admin: 06/19/19 14:43 Dose: 2.5 mg Documented by: [id number] Medical Decision Making Differential Diagnosis head injury, intercranial hemorrhage, infection, arrhythmia, cervical spinal fracture, skull fracture Medical Records Attestation: I reviewed the patient's medical records. Home Medications Current Medication List: was personally reviewed by me Laboratory Data Attestation: I reviewed the patient's lab results. Result diagrams: 06/19/19 09:03 06/19/19 09:03 Lab Results 06/19/19 06/19/19 06/19/19 Range/Units 09:03 09:03 09:50 WBC 5.75 (4.8-10.8) K/uL RBC 4.40 (4.2-5.4) M/uL Hgb 12.1 (12.0-16.0) g/dL Hct 38.2 (37-47) % MCV 86.8 (80-100) fL MCH 27.5 (25-34) pg MCHC 31.7 L (32-36) g/dL RDW Std Deviation 45.8 (36.4-46.3) fL RDW Coeff of Marissa 14.4 (11.5-14.5) % Plt Count 214 (130-400) K/uL MPV 11.9 H (7.4-10.4) fL Immature Gran % (Auto) 0.2 % Neut % (Auto) 76.4 % Lymph % (Auto) 11.8 % [place] % (Auto) 10.4 % Eos % (Auto) 1.0 % Baso % (Auto) 0.2 % Immature Gran # (Auto) 0.01 (0.00-0.02) K/uL Neut # (Auto) 4.39 (1.4-6.5) K/uL Lymph # (Auto) 0.68 L (1.2-3.4) K/uL [place] # (Auto) 0.60 H (0.11-0.59) K/uL Eos # (Auto) 0.06 (0-0.5) K/uL Baso # (Auto) 0.01 (0-0.2) K/uL Sodium 141 (136-145) mmol/L Potassium 3.3 L (3.5-5.1) mmol/L Chloride 105 (98-107) mmol/L Carbon Dioxide 29 (21-32) mmol/L Anion Gap 7.0 (3-11) BUN 25 H (7-18) mg/dl Creatinine 1.21 H (0.6-1.2) mg/dl Est Cr Clr Drug Dosing 27.2 ml/min Est GFR ( Amer) 45.9 Est GFR (Non-Af Amer) 39.6 BUN/Creatinine Ratio 20.7 H (10-20) Glucose 146 H (70-99) mg/dl Calcium 9.0 (8.5-10.1) mg/dl Total Bilirubin 0.5 (0.2-1) mg/dl AST 13 L (15-37) U/L ALT 14 (12-78) U/L Alkaline Phosphatase 55 (45-117) U/L Troponin I < 0.015 (0-0.045) ng/ml Total Protein 7.1 (6.4-8.2) gm/dl Albumin 3.7 (3.4-5.0) gm/dl Globulin 3.4 (2.5-4.0) gm/dl Albumin/Globulin Ratio 1.1 (0.9-2) TSH 1.620 (0.300-4.500) uIu/ml Urine Color Yellow Urine Appearance Clear (Clear) Urine pH 7.5 (4.5-7.5) Ur Specific [place] 1.013 (1.000-1.030) Urine Protein 2+ H (Negative) Urine Glucose (UA) Negative (Negative) Urine Ketones Negative (Negative) Urine Blood Negative (Negative) Urine Nitrite Negative (Negative) Urine Bilirubin Negative (Negative) Urine Urobilinogen Negative (Negative) Ur Leukocyte Esterase Negative (Negative) Urine WBC (Auto) 1-5 (0-5) /hpf Urine RBC (Auto) 0-4 (0-4) /hpf U Hyaline Cast (Auto) 1-5 (0-5) /lpf U Epithel Cells (Auto) 20-30 H (0-5) /lpf Urine Bacteria (Auto) 4+ H (Negative) Imaging Data Radiologist's Impression: Radiology results as stated below per my review and the radiologist's interpretation: CT cervical spine wo con CT DOSE: HISTORY: Trauma. Pain. EVAL FOR TRAUMA TECHNIQUE: Multiaxial CT images of the cervical spine were performed and reformatted in the sagittal and coronal plane without the use of contrast. A dose lowering technique was utilized adhering to the principles of ALARA. COMPARISON: None. FINDINGS: No fractures. No subluxation. Prevertebral soft tissues and the C1-C2 interval are intact. No pneumothorax. General degenerative disc changes throughout. Prior partial left mastoid resection. IMPRESSION: No acute process. Degenerative and postoperative change as described. The above report was generated using voice recognition software. It may contain grammatical, syntax or spelling errors. Electronically signed by: Jorge Durant M.D. 06/19/2019 10:[address] SCAN OF THE FACIAL BONES WITHOUT IV CONTRAST CLINICAL HISTORY: Fall. Facial injury. COMPARISON STUDY: CT of the brain performed concurrently on 06/19/2019. TECHNIQUE: High-resolution CT scan of the facial bones is performed. Images are reviewed in the axial, sagittal, and coronal planes. IV contrast was not administered for this examination. A dose lowering technique was utilized adhe ring to the principles of ALARA. FINDINGS: The skeletal structures are osteopenic. There are comminuted bilateral nasal bone fractures with overlying soft tissue edema. The bony nasal septum appears intact noting leftward deviation. No additional facial bone fracture is identified. The bony orbits are intact and the orbital contents are within normal limits noting bilateral ocular lens implants. The zygomatic arches and pterygoid plates are preserved. The maxilla and mandible are intact. Degen erative change is noted in the temporomandibular joints. There are no layering blood products within the paranasal sinuses. The paranasal sinuses are clear. There is evidence of previous left mastoid surgery. The mastoid air cells appear well-pneumatized. The visualized calvarium and upper cervical spine are maintained. Partially imaged brain parenchyma is within normal limits noting age-related involutional change and microangiopathic disease. There is a small frontal scalp hematoma. IMPRESSION: 1. There are comminuted bilateral nasal bone fractures with overlying soft tissue edema. 2. No additional facial bone fracture is identified. Electronically signed by: Aubrey Rodriguez M.D. 06/19/2019 10:[address] SCAN OF THE BRAIN WITHOUT IV CONTRAST CLINICAL HISTORY: Trauma. Fall. COMPARISON STUDY: CT of the brain dated 06/04/2019. TECHNIQUE: Unenhanced axial CT scan of the brain is performed from the vertex to the skull base. A dose lowering technique was utilized adhering to the principles of ALARA. CT DOSE: 958.33 mGy.cm FINDINGS: Brain parenchyma: There are age-related involutional changes noting advanced confluent subcortical and periventricular microangiopathic change. There is no hemorrhage, mass effect, or evidence of acute territorial ischemia by CT criteria. Hsu-white matter differentiation is preserved. No extra-axial fluid collection is seen. Ventricles, sulci, cisterns: Prominent secondary to involutional change. Intracranial vasculature: There is atherosclerotic calcification of the cavernous carotid and vertebral arteries. Calvarium: The skeletal structures are osteopenic. No depressed calvarial fracture is identified. There are bilateral nasal bone fractures with overlying soft tissue edema. Soft tissues: There is a small frontal scalp hematoma. Sinuses and mastoids: The visualized paranasal sinuses are clear. There is evidence of previous left mastoid surgery. The mastoid air cells are well pneumatized. Orbits: The bony orbits are grossly intact. There are bilateral ocular lens implants. IMPRESSION: 1. There is no hemorrhage, mass effect, or evidence of acute territorial ischemia by CT criteria. 2. There are bilateral nasal bone fractures with overlying soft tissue edema. 3. Small frontal scalp hematoma. No depressed calvarial fracture is identified. Electronically signed by: Aubrey Rodriguez M.D. 06/19/2019 10:28 AM XR chest 1V portable CLINICAL HISTORY: weakness mental status change COMPARISON STUDY: 06/04/2019 FINDINGS: Slight left basilar interstitial prominence considered chronic. Lungs otherwise appear clear. Diaphragms are smooth. No significant cardiac enlargement. IMPRESSION: Chronic change. No acute process. The above report was generated using voice recognition software. It may contain grammatical, syntax or spelling errors. Electronically signed by: Jorge Durant M.D. 06/19/2019 9:58 AM ECG Data Attestation: I personally reviewed and interpreted this ECG as follows: Indication: other (fall ) Rate (beats per minute): 67 Rhythm: sinus rhythm Findings: + other (poor baseline), + 1st degree AV block and + PVC (occasional) Comparison ECG Date: from (06/04/2019) Change: the following changes noted (ectopy now present) Blood Pressure Blood Pressure Findings: Elevated blood pressure Blood Pressure Disposition: further management by hospitalist [facility] Narrative This patient comes in as described above. She suffered a fall. He does have dementia. She recently was placed in the [facility]. She has a bruise on her forehead that is new and also an old one from her previous fall. Her history is unreliable due to her dementia according to her daughter. She is awake and does answer questions. She moves all 4 extremities symmetrically and has a normal neurologic exam besides the dementia. CAT scan of her head was and face and neck were unremarkable with exception of a nasal fracture. EKG does show first-degree AV block there is some ectopy as well and on the monitor. she does tend to run on the bradycardic side. I am concerned that she could be having an arrhythmia that is causing her to potentially passing out in light of this I do think she should be admitted/observed. Her cardiac biomarkers are neg ative thus far. She has no acute electrolyte or metabolic abnormalities. Her urinalysis does suggest a possible UTI with a culture pending. With her frequent falls and the need for cardiac monitoring. I do think she needs to be admitted/observed. I have consulted Dr. Robert,who saw the patient in the ER for these measures. Impression & Plan Bradycardia, Fall, Fracture of nasal bone, Head injury Discharge Plan Visit Data *Final* Discharge Date/Time: 06/19/19 13:18 Chief Complaint: Fall Other Complaint: Hip Pain ED Provider: Taj Cook Discharge Problem: Bradycardia, Fall, Fracture of nasal bone, Head injury Patient Disposition: Admitted As Inpatient Discharge Instructions Interventions: ED Discharge Assessment Last Done: 06/19/19 13:18 The scribe's documentation has been prepared under my direction and personally reviewed by me in its entirety. I confirm that the note above accurately reflects all work, treatment, procedures, and medical decision making performed by me.
--- NOTE | 2019-06-19 10:28 | CT Scan Report ---
CT cervical spine wo con CT DOSE: HISTORY: Trauma. Pain. EVAL FOR TRAUMA TECHNIQUE: Multiaxial CT images of the cervical spine were performed and reformatted in the sagittal and coronal plane without the use of contrast. A dose lowering technique was utilized adhering to th e principles of ALARA. COMPARISON: None. FINDINGS: No fractures. No subluxation. Prevertebral soft tissues and the C1-C2 interval are intact. No pneumothorax. General degenerative disc changes throughout. Prior partial left mastoid resection. IMPRESSION: No acute process. Degenerative and postoperative change as described. The above report was generated using voice recognition software. It may contain grammatical, syntax or spelling errors. Electronically signed by: Jorge Durant M.D. 06/19/2019 10:26 AM
--- NOTE | 2019-06-19 10:29 | CT Scan Report ---
CT SCAN OF THE BRAIN WITHOUT IV CONTRAST CLINICAL HISTORY: Trauma. Fall. COMPARISON STUDY: CT of the brain dated 06/04/2019. TECHNIQUE: Unenhanced axial CT scan of the brain is performed from the vertex to the skull base. A do se lowering technique was utilized adhering to the principles of ALARA. CT DOSE: 958.33 mGy.cm FINDINGS: Brain parenchyma: There are age-related involutional changes noting advanced confluent subcortical a nd periventricular microangiopathic change. There is no hemorrhage, mass effect, or evidence of acute territorial ischemia by CT criteria. Hsu-white matter differentiation is preserved. No extra-axial fluid collection is seen. Ventricles, sulci, cisterns: Prominent secondary to involutional change. Intracranial vasculature: There is atherosclerotic calcification of the cavernous carotid and vertebr al arteries. Calvarium: The skeletal structures are osteopenic. No depressed calvarial fracture is identified. The re are bilateral nasal bone fractures with overlying soft tissue edema. Soft tissues: There is a small frontal scalp hematoma. Sinuses and mastoids: The visualized paranasal sinuses are clear. There is evidence of previous left mastoid surgery. The mastoid air cells are well pneumatized. Orbits: The bony orbits are grossly intact. There are bilateral ocular lens implants. IMPRESSION: 1. There is no hemorrhage, mass effect, or evidence of acute territorial ischemia by CT criteria. 2. There are bilateral nasal bone fractures with overlying soft tissue edema. 3. Small frontal scalp hematoma. No depressed calvarial fracture is identified. Electronically signed by: Aubrey Rodriguez M.D. 06/19/2019 10:28 AM
[2019-06-19 10:32] LABS: Albumin Globulin Ratio 1.1 (0.9-2); Alkaline Phosphatase 55 U/L (45-117); Bilirubin,Total 0.5 mg/dl (0.2-1); Globulin 3.4 gm/dl (2.5-4.0); Total Protein 7.1 gm/dl (6.4-8.2); Troponin I < 0.015 ng/ml (0-0.045)
--- NOTE | 2019-06-19 10:34 | CT Scan Report ---
CT SCAN OF THE FACIAL BONES WITHOUT IV CONTRAST CLINICAL HISTORY: Fall. Facial injury. COMPARISON STUDY: CT of the brain performed concurrently on 06/19/2019. TECHNIQUE: High-resolution CT scan of the facial bones is performed. Images are reviewed in the axia l, sagittal, and coronal planes. IV contrast was not administered for this examination. A dose lower ing technique was utilized adhering to the principles of ALARA. FINDINGS: The skeletal structures are osteopenic. There are comminuted bilateral nasal bone fractures with overlying soft tissue edema. The bony nasal septum appears intact noting leftward deviation. No additional facial bone fracture is identified. The bony orbits are intact and the orbital contents a re within normal limits noting bilateral ocular lens implants. The zygomatic arches and pterygoid pl ates are preserved. The maxilla and mandible are intact. Degenerative change is noted in the temporom andibular joints. There are no layering blood products within the paranasal sinuses. The paranasal si nuses are clear. There is evidence of previous left mastoid surgery. The mastoid air cells appear wel l-pneumatized. The visualized calvarium and upper cervical spine are maintained. Partially imaged bra in parenchyma is within normal limits noting age-related involutional change and microangiopathic dis ease. There is a small frontal scalp hematoma. IMPRESSION: 1. There are comminuted bilateral nasal bone fractures with overlying soft tissue edema. 2. No additional facial bone fracture is identified. Electronically signed by: Aubrey Rodriguez M.D. 06/19/2019 10:33 AM
--- NOTE | 2019-06-19 12:46 | History & Physical Report ---
Date of Service June 19, 2019 Assessment & Plan (1) Fall: Possible syncope leading to fall although pt is not the best historian CXR, UA, WBC neg for infection CT head neg for CVA EKG with 1st degree AV block, seen prior HR in the 40s/50s in the ED. Pt was admitted for syncope and fall 10/2017. She had a full workup including ECHO and carotid US that was neg. It was determined that pt's HR was dropping too low and her atenolol was stopped at d/c. Pt was noted to have 1st degree AV block at that time as well. At this time, atenolol seems to have been restarted. In going through [employer], I cannot find a note stating why, just an rx auth. On the visit that day (02/21/18) her BP was noted to be WNL, but no specific mention of management of HTN. There is no mention of restarting atenolol at that time. Monitor BP and HR without atenolol Will not repeat carotids or ECHO given recent testing t/c cardiology c/s for possible pacer given possibility of sx 1st degree AV block (2) Dementia: At baseline per son One to one sitter (3) Diabetes: continue home meds (4) CKD (chronic kidney disease) stage 3, GFR 30-59 ml/min: Cr is at baseline 1.2 (5) HTN (hypertension): Continue amlodipine, holding atenolol for now as above Monitor (6) GERD (gastroesophageal reflux disease): continue home meds (7) Hypothyroid: continue home meds TSH WNL in ED (8) Hypokalemia: Replace and monitor May need higher home dosing (9) Hyperlipidemia: continue home meds (10) DVT prophylaxis: SCDs, aspirin History of Present Illness Primary Care Provider: [facility] 88 y/o F who was transferred here from [facility] after a fall this AM. Pt initially does not remember falling and looks to her son for information regarding when she fell. Pt denies fever, SOB, chest pain, abd pain, n/v/c/d, LE pain or swelling. She states she has no pain. She states she has been eating without issue and likes most of the food at . Son states that he was called this AM and it was reported to his that pt fell while getting ready to go to breakfast. She does seem to remember details at that point. When asked if she tripped and fell vs passing out she quite emphatically replies that the passed out and was lightheaded prior to this. Son states that she has fallen 3 times in the last 10-12 days, none of the falls were witnessed and pt has some difficulty remembering the episodes clearly. Pt had been living with son and his after pt's had a recent hospitalization due to ID. He is living in their home now, but cannot take care of pt due to her dementia, so she had moved in with her son. There was some issues with living there related to her fall and so she was placed in AL at [facility] about 2 weeks ago. Pt was admitted for syncope and fall 10/2017. She had a full workup including ECHO and carotid US that was neg. It was determined that pt's HR was dropping too low and her atenolol was stopped at d/c. Pt was noted to have 1st degree AV block at that time as well. At this time, atenolol seems to have been restarted. In going through [employer], I cannot find a note stating why, just an rx auth. On the visit that day (02/21/18) her BP was noted to be WNL, but no specific ment ion of management of HTN. There is no mention of restarting atenolol at that time. Allergies Allergy/AdvReac Type Severity Reaction Status Date / Time metronidazole Allergy Unknown RASH Verified 06/19/19 09:17 red dye Allergy Unknown RASH Verified 06/19/19 09:17 tinidazole Allergy Unknown RASH Verified 06/19/19 09:17 yellow dye Allergy Unknown RASH Verified 06/19/19 09:17 Home Medications Home Medications Medication Instructions Recorded Confirmed Type amlodipine 5 mg PO QAM #0 tab 06/08/13 06/19/19 History aspirin 81 mg PO QAM #0 06/08/13 06/19/19 History calcium carbonate [Calcium 600] 600 mg PO QAM #0 06/08/13 06/19/19 History cholecalciferol (vitamin D3) 2,000 unit PO QAM #0 cap 06/08/13 06/19/19 History metformin 500 mg PO BID #0 tab 06/08/13 06/19/19 History [id number] oil [Blanca-3 1 cap PO BIDM #0 06/08/13 06/19/19 History Fish Oil] simvastatin 20 mg PO HS #0 tab 06/08/13 06/19/19 History potassium chloride [Klor-Con M20] 10 meq PO QAM #0 tab 12/24/16 06/19/19 History levothyroxine 50 mcg PO QAM 06/04/19 06/19/19 History metoclopramide HCl 5 mg PO TIDM 06/04/19 06/19/19 History pantoprazole 20 mg PO QAM 06/04/19 06/19/19 History atenolol 100 mg PO QAM 06/19/19 06/19/19 History Past Med/Surg History Medical History Dementia 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) Diabetes (Chronic) Surgical History No pertinent past surgical history Family History Father Myocardial infarction Other No pertinent family history Social History Current Living Situation: Family Feels Safe at Home: Yes Smoking Status: Never smoker Hx Alcohol Use: No Hx Substance Use: No Review of Systems Review of Systems: Pertinent positives and negatives reviewed in HPI--all others negative Physical Exam Constitutional: WD/WN, vitals as above Eyes: normal visual diane by confrontation and + anicteric sclerae ENMT: facial bruising and edema Neck: normal visual inspection and trachea midline Respiratory: normal respiratory effort, lungs clear to auscultation Cardiovascular: Rate/Rhythm: regular rhythm and + bradycardic Gastrointestinal (Abdomen): Inspection/Auscultation: abdomen not distended Percussion/Palpation: abdomen soft; abdomen nontender Musculoskeletal: Head/Neck/Chest: normocephalic and head atraumatic negative for edema, peripheral pulses intact Skin: no rashes, warm and dry Neurologic: awake and + confused (mildly confused as to details of recent health but answers questions approp) Speech / Cognition: normal speech Psychiatric: Orientation: oriented to person and cooperative; + not oriented to place and + not oriented to time Speech: normal rate/rhythm/volume of speech Affect: euthymic affect Results & Data Vital Signs (Past 12 Hours) Vital Signs Temp Pulse Pulse Resp BP BP Pulse Ox 06/19/19 11:36 52 L 20 170/76 H 95 06/19/19 10:41 49 L 20 201/85 H 97 06/19/19 09:02 36.6 C 49 L 20 178/96 H 94 Diagnostic Findings CXR: neg for acute CT head/face: b/l nasal fractures with edema, frontal hematoma CT c-spine: neg for acute ECG Findings: + 1st degree AV block (seen prior) Code Status & VTE Plan Code Status Son states that a living will was completed on her last admission and he thought it would be on file. He states he thinks pt is DNR/DNI but will bring in paperwork as I can find no record on living will in our EHR. VTE Prophylaxis Plan VTE Prophylaxis will be ordered: Yes PG Care Time/CCT Total # of Minutes Spent Total Time Spent with Patient: Total time spent is greater than 50% in coordination of care (as documented) at patient's floor/unit and/or counseling patient: (1) Fall Encounter type: subsequent encounter Qualified Code(s): W19.XXXD - Unspecified fall, subsequent encounter
[2019-06-19] MEDS ORDERED: MAGNESIUM HYDROXIDE SUSP 30 ML UDC PO PRN (13:59)
[2019-06-19] MEDS ORDERED: ONDANSETRON INJ 2 MG/ML 2 ML VIAL IV PRN (13:59)
[2019-06-19] MEDS ORDERED: OLANZapine 10 MG/2.1 ML SDV IM ONE (14:30)
[2019-06-19] MEDS: OMEGA-3 (PURIFIED FISH OIL) 1 GM CAP PO SCH (17:00)
[2019-06-19] MEDS: METOCLOPRAMIDE HCL 5 MG TABLET PO SCH (17:00)
[2019-06-19] MEDS: SIMVASTATIN 20 MG TAB PO SCH (20:35)
[2019-06-19] MEDS: METFORMIN HCL ER 500 MG TABCR PO SCH (20:35)
[2019-06-19] MEDS: ACETAMINOPHEN 325 MG TAB PO PRN (23:12)
[2019-06-20] MEDS: ACETAMINOPHEN 325 MG TAB PO PRN (05:16)
[2019-06-20] MEDS: LEVOTHYROXINE SODIUM 50 MCG TABLET PO SCH (05:16)
[2019-06-20 07:33] LABS: BUN Creatinine Ratio 16.5 (10-20); Calcium 8.6 mg/dl (8.5-10.1); Creatinine Clr Calc Pharmacy 26.1 ml/min; Est GFR (African American) 43.7; Est GFR (Non-African American) 37.7; Potassium 2.8 mmol/L (3.5-5.1)
[2019-06-20] MEDS ORDERED: CARBOHYDRATES FOR HYPOGLYCEMIA PO PRN (08:52)
[2019-06-20] MEDS ORDERED: GLUCAGON FOR INJ 1 MG VIAL SQ PRN (08:52)
[2019-06-20] MEDS ORDERED: DEXTROSE 50% 50 ML SYRINGE IV PRN (08:52)
[2019-06-20] MEDS ORDERED: GLUCOSE 10 TABS/TUBE PO PRN (08:52)
[2019-06-20] MEDS ORDERED: GLUCOSE 40% GEL 15 GM TUBE PO PRN (08:52)
[2019-06-20] MEDS: METOCLOPRAMIDE HCL 5 MG TABLET PO SCH ×3 (08:58→16:51)
[2019-06-20] MEDS: CALCIUM 600MG + VIT D 400 IU TAB PO SCH (08:58)
[2019-06-20] MEDS: OMEGA-3 (PURIFIED FISH OIL) 1 GM CAP PO SCH ×2 (08:58→16:51)
[2019-06-20] MEDS: AMLODIPINE BESYLATE 5 MG TAB PO SCH (08:59)
[2019-06-20] MEDS: METFORMIN HCL ER 500 MG TABCR PO SCH (08:59)
[2019-06-20] MEDS: PANTOprazole 40 MG TAB PO SCH (08:59)
[2019-06-20] MEDS: ASPIRIN 81 MG ECTAB PO SCH (08:59)
[2019-06-20] MEDS: CHOLECALCIFEROL 1,000 UNITS TAB PO SCH (08:59)
[2019-06-20] MEDS: POTASSIUM CHLORIDE 10 MEQ TABCR PO SCH (08:59)
[2019-06-20] MEDS ORDERED: POTASSIUM CHLORIDE 20 MEQ TABCR PO STA (09:03)
[2019-06-20] MEDS: INSULIN ASPART 100 UNITS/ML 3 ML PEN SC SCH ×3 (12:24→20:43)
--- NOTE | 2019-06-20 14:17 | Hospitalist Progress Note ---
Date of Service June 20, 2019 Assessment & Plan (1) Fall: Possible syncope leading to fall although pt is not the best historian Has had multiple recent falls Is dizzy with sitting up from lying down and is mildly orthostatic, dropping about 10 points systolic, but hypertensive to begin with COuld be bradycardia induced? rates only in the low 50s on tele CXR, UA, WBC neg for infection No significant anemia/drop in hgb Serial troponin neg x 3 CT head neg for CVA EKG with 1st degree AV block, seen prior HR in the 40s/50s in the ED. Pt was admitted for syncope and fall 10/2017. She had a full workup including ECHO and carotid US that was neg. It was determined that pt's HR was dropping too low and her atenolol was stopped at d/c. Pt was noted to have 1st degree AV block at that time as well. At this time, atenolol seems to have been restarted since then. Also with significant hypokalemia which may have led to weakness -continue to hold atenolol -Monitor BP and HR , continue tele -will give gentle hydration with 1L NS given ongoing orthostasis -replacing K+ -follow BMP -needs skilled care likely (2) Dementia: At baseline per son (3) Diabetes: hold metformin from home while here HgbA1C 7.1% in 01/2019 -start SSI, accuchecks -continue reglan for gastroparesis (4) CKD (chronic kidney disease) stage 3, GFR 30-59 ml/min: Cr is at baseline 1.2 -avoid nephrotoxins renally dose meds -follow BMP (5) HTN (hypertension): BPs elevated but drop slightly with lying to sitting -Continue amlodipine, holding atenolol for now as above -continue ASA 81mg daily Monitor (6) GERD (gastroesophageal reflux disease): continue home PPI (7) Hypothyroid: continue home LT4 50mcg daily TSH 1.6 (8) Hypokalemia: K+ remains low at 2.8, unclear reason why -replace with po KCl -follow BMP in AM (9) Hyperlipidemia: continue home statin (10) Orthostasis: mild, as above -hydrating -holding atenolol (11) Fracture of nasal bone: sustained nasal brone fracture during fall prior to admission no septal hematoma, has slight deviation of nasal bone -follow clinically -pain control prn with APAP (12) DVT prophylaxis: SCDs Dispo remain on PCU for monitoring, PT/OT evals, Case Management ,may need SNF placement Discussed care with son on phone. He could not hear me very well and asked to discuss all of her care in person tomorrow when he comes in to visit. Was not able to address code status with him at this time therefore she remains a full code Subjective Pt reports some pain in her face in her nose. Otherwise denies CP or SOB. Thinks she is at "the [place]." SHe does report dizziness/lightheadedness with sitting or standing, and RN reports orthostatics were positive. Tele with SB with PVCs, rates in the 50s, a brief run of atrial tachycardia in the 110s. Review of Systems Review of Systems: Unobtainable due to cognitive status Physical Exam Constitutional: WD/WN, vitals as above Eyes: PERRL, conjunctivae normal, anicteric sclerae EOM intact bilaterally ENMT: Ears: no external ear abnormality Nose: + external nose abnormality (mildly deviated nasal bone to the right, +periorbital and nasal ecchymosis); no septum abnormality (no septal hematoma), no nasal discharge, no sinus tenderness and no epistaxis Neck: trachea midline, no thyromegaly Respiratory: normal respiratory effort, lungs clear to auscultation Cardiovascular: RRR, no murmur, no edema Gastrointestinal (Abdomen): normal bowel sounds, soft, nontender, no hepatosplenomegaly Musculoskeletal: Extremities: extremities normal to inspection; no cyanosis and no clubbing Skin: no rashes, warm and dry Neurologic: moves all extremities and awake; no focal motor deficits Psychiatric: Orientation: alert, oriented to person and cooperative; + not oriented to place and + not oriented to time Results & Data Vital Signs (Past 12 Hours) Vital Signs Temp Pulse Pulse Pulse Resp BP BP 06/20/19 11:05 36.6 C 62 16 154/88 H 06/20/19 08:00 48 L 06/20/19 07:55 36.8 C 65 17 179/95 H 06/20/19 03:57 36.6 C 58 L 19 183/71 H Pulse Ox 06/20/19 11:05 94 06/20/19 08:00 06/20/19 07:55 90 06/20/19 03:57 94 Laboratory Results 06/20/19 06/20/19 06/20/19 Range/Units 20:17 16:19 11:23 Sodium (136-145) mmol/L Potassium (3.5-5.1) mmol/L Chloride (98-107) mmol/L Carbon Dioxide (21-32) mmol/L Anion Gap (3-11) BUN (7-18) mg/dl Creatinine (0.6-1.2) mg/dl Est Cr Clr Drug Dosing ml/min Est GFR ( Amer) Est GFR (Non-Af Amer) BUN/Creatinine Ratio (10-20) Glucose (70-99) mg/dl POC Glucose 133 H 130 H 135 H (70-99) Calcium (8.5-10.1) mg/dl Troponin I (0-0.045) ng/ml 06/20/19 06/19/19 Range/Units 06:09 23:00 Sodium 141 (136-145) mmol/L Potassium 2.8 L D (3.5-5.1) mmol/L Chloride 102 (98-107) mmol/L Carbon Dioxide 30 (21-32) mmol/L Anion Gap 9.0 (3-11) BUN 21 H (7-18) mg/dl Creatinine 1.26 H (0.6-1.2) mg/dl Est Cr Clr Drug Dosing 26.1 ml/min Est GFR ( Amer) 43.7 Est GFR (Non-Af Amer) 37.7 BUN/Creatinine Ratio 16.5 (10-20) Glucose 134 H (70-99) mg/dl POC Glucose (70-99) Calcium 8.6 (8.5-10.1) mg/dl Troponin I < 0.015 (0-0.045) ng/ml PG Care Time/CCT Total # of Minutes Spent Total Time Spent with Patient: Total time spent is greater than 50% in coordination of care (as documented) at patient's floor/unit and/or counseling patient: (1) Fall Encounter type: subsequent encounter Qualified Code(s): W19.XXXD - Unspecified fall, subsequent encounter (2) Fracture of nasal bone Encounter type: initial encounter Fracture type: closed Qualified Code(s): S02.2XXA - Fracture of nasal bones, initial encounter for closed fracture
[2019-06-20] MEDS ORDERED: SODIUM CHLORIDE 0.9% 1000ML 1,000 ML IV SCH (14:30)
[2019-06-20] MEDS: SIMVASTATIN 20 MG TAB PO SCH (20:35)
[2019-06-21] MEDS: LEVOTHYROXINE SODIUM 50 MCG TABLET PO SCH (06:39)
[2019-06-21 07:03] LABS: Basophils # (auto) 0.02 K/uL (0-0.2); Basophils % (auto) 0.3 %; Eosinophils # (auto) 0.09 K/uL (0-0.5); Eosinophils % (auto) 1.4 %; Hematocrit (blood only) 39.2 % (37-47); Hemoglobin 12.2 g/dL (12.0-16.0); Immature Granulocytes # (auto) 0.02 K/uL (0.00-0.02); Immature Granulocytes % (auto) 0.3 %; Lymphocytes # (auto) 1.12 K/uL (1.2-3.4); Lymphocytes % (auto) 17.7 %; Mean Corpuscular Hemoglobin 27.1 pg (25-34); Mean Corpuscular Hgb Conc 31.1 g/dL (32-36); Mean Corpuscular Volume 87.1 fL (80-100); Mean Platelet Volume 11.3 fL (7.4-10.4); Monocytes # (auto) 0.71 K/uL (0.11-0.59); Monocytes % (auto) 11.2 %; Neutrophils # (auto) 4.36 K/uL (1.4-6.5); Neutrophils % (auto) 69.1 %; Platelet Count 185 K/uL (130-400); RDW Coefficient of Variation 14.6 % (11.5-14.5); RDW Standard Deviation 46.4 fL (36.4-46.3); White Blood Count 6.32 K/uL (4.8-10.8)
[2019-06-21 07:46] LABS: BUN Creatinine Ratio 15.8 (10-20); Calcium 8.9 mg/dl (8.5-10.1); Creatinine Clr Calc Pharmacy 33.3 ml/min; Est GFR (African American) 58.6; Est GFR (Non-African American) 50.5; Magnesium 1.6 mg/dl (1.8-2.4); Potassium 3.3 mmol/L (3.5-5.1)
[2019-06-21] MEDS: INSULIN ASPART 100 UNITS/ML 3 ML PEN SC SCH ×4 (07:56→21:44)
[2019-06-21] MEDS: PANTOprazole 40 MG TAB PO SCH (07:56)
[2019-06-21] MEDS: METOCLOPRAMIDE HCL 5 MG TABLET PO SCH ×3 (07:57→17:37)
[2019-06-21] MEDS: OMEGA-3 (PURIFIED FISH OIL) 1 GM CAP PO SCH ×2 (07:57→17:37)
[2019-06-21] MEDS: ASPIRIN 81 MG ECTAB PO SCH (07:57)
[2019-06-21] MEDS: CHOLECALCIFEROL 1,000 UNITS TAB PO SCH (07:57)
[2019-06-21] MEDS: AMLODIPINE BESYLATE 5 MG TAB PO SCH (07:57)
[2019-06-21] MEDS: POTASSIUM CHLORIDE 10 MEQ TABCR PO SCH (07:57)
[2019-06-21] MEDS: CALCIUM 600MG + VIT D 400 IU TAB PO SCH (07:58)
[2019-06-21] MEDS ORDERED: POTASSIUM CHLORIDE 20 MEQ TABCR PO STA (09:53)
[2019-06-21] MEDS: MAGNESIUM SULFATE / D5W 1 GM/100 ML BAG IV SCH ×2 (10:07→11:00)
[2019-06-21] MEDS ORDERED: AMLODIPINE BESYLATE 5 MG TAB PO ONE (13:02)
[2019-06-21] MEDS: SIMVASTATIN 20 MG TAB PO SCH (21:44)
--- NOTE | 2019-06-22 00:53 | Hospitalist Progress Note ---
Date of Service DOS is 06/21/19 June 22, 2019 Assessment & Plan (1) Fall: Possible syncope leading to fall although pt is not the best historian Has had multiple recent falls Is dizzy with sitting up from lying down and is mildly orthostatic, dropping about 10 points systolic, but hypertensive to begin with COuld be bradycardia induced? rates only in the low 50s on tele initially and now improving to the 60s with holding atenolol CXR, UA, WBC neg for infection No significant anemia/drop in hgb Serial troponin neg x 3 CT head neg for CVA EKG with 1st degree AV block, seen prior HR in the 40s/50s in the ED. Pt was admitted for syncope and fall 10/2017. She had a full workup including ECHO and carotid US that was neg. It was determined that pt's HR was dropping too low and her atenolol was stopped at d/c. Pt was noted to have 1st degree AV block at that time as well. At this time, atenolol seems to have been restarted since then. Also with significant hypokalemia which may have led to weakness -continue to hold atenolol-would permanently discontinue -Monitor BP and HR , continue tele -received gentle hydration with NS -replacing K+ -follow BMP -needs skilled care after discharge (2) Dementia: At baseline per son (3) Diabetes: hold metformin from home while here HgbA1C 7.1% in 01/2019 -start SSI, accuchecks -continue reglan for gastroparesis (4) CKD (chronic kidney disease) stage 3, GFR 30-59 ml/min: Cr is at baseline 1.2 -avoid nephrotoxins renally dose meds -follow BMP (5) HTN (hypertension): BPs quite elevated but drop slightly with lying to sitting -Continue amlodipine and increase dose to 10mg daily -dcd atenolol as above -continue ASA 81mg daily Monitor (6) GERD (gastroesophageal reflux disease): continue home PPI (7) Hypothyroid: continue home LT4 50mcg daily TSH 1.6 (8) Hypokalemia: K+ very low on admission and may have contributed to falls/weakness--> unclear reason why K+ so low but daughter in law reports pt hardly drinks at all -replace with po KCl -follow BMP in AM -replace Magnesium IV (9) Hyperlipidemia: continue home statin (10) Orthostasis: mild, as above -hydrated -holding atenolol (11) Fracture of nasal bone: sustained nasal bone fracture during fall prior to admission no septal hematoma, has slight deviation of nasal bone -follow clinically and should have ENT follow up closely as outpt -pain control prn with APAP (12) DVT prophylaxis: SCDs Dispo - PT/OT evals, Case Management , needs SNF placement Discussed care with son and daughter in law. Son Gadiel is pt's HCPOA He wants to discuss CODE status with his brother when he gets here today. Subjective Pt has no complaints. Is pleasantly confused. No pain in face, denies SOB or CP. Denies lightheadedness Tele with NSR, SB, 1st deg AV block, PACs, rates in 50s-60s Review of Systems Review of Systems: Unobtainable due to cognitive status Physical Exam Constitutional: WD/WN, vitals as above Eyes: PERRL, conjunctivae normal, anicteric sclerae EOM intact bilaterally ENMT: Ears: no external ear abnormality Nose: + external nose abnormality (mildly deviated nasal bone to the right, +periorbital and nasal ecchymosis); no septum abnormality (no septal hematoma), no nasal discharge, no sinus tenderness and no epistaxis Neck: trachea midline, no thyromegaly Respiratory: normal respiratory effort, lungs clear to auscultation Cardiovascular: RRR, no murmur, no edema Gastrointestinal (Abdomen): normal bowel sounds, soft, nontender, no hepatosplenomegaly Musculoskeletal: Extremities: extremities normal to inspection; no cyanosis and no clubbing Skin: no rashes, warm and dry Neurologic: moves all extremities and awake; no focal motor deficits Psychiatric: Orientation: alert, oriented to person and cooperative; + not oriented to place and + not oriented to time Results & Data Vital Signs (Past 12 Hours) Vital Signs Temp Pulse Resp BP BP Pulse Ox 06/21/19 23:41 37.3 C 64 16 160/72 H 96 06/21/19 15:30 36.4 C L 62 18 153/74 H 94 06/21/19 14:35 36.5 C 57 L 16 164/76 H 97 Laboratory Results 06/21/19 06/21/19 06/21/19 Range/Units 20:25 17:21 14:25 WBC (4.8-10.8) K/uL RBC (4.2-5.4) M/uL Hgb (12.0-16.0) g/dL Hct (37-47) % MCV (80-100) fL MCH (25-34) pg MCHC (32-36) g/dL RDW Std Deviation (36.4-46.3) fL RDW Coeff of Marissa (11.5-14.5) % Plt Count (130-400) K/uL MPV (7.4-10.4) fL Immature Gran % (Auto) % Neut % (Auto) % Lymph % (Auto) % [place] % (Auto) % Eos % (Auto) % Baso % (Auto) % Immature Gran # (Auto) (0.00-0.02) K/uL Neut # (Auto) (1.4-6.5) K/uL Lymph # (Auto) (1.2-3.4) K/uL [place] # (Auto) (0.11-0.59) K/uL Eos # (Auto) (0-0.5) K/uL Baso # (Auto) (0-0.2) K/uL Sodium (136-145) mmol/L Potassium (3.5-5.1) mmol/L Chloride (98-107) mmol/L Carbon Dioxide (21-32) mmol/L Anion Gap (3-11) BUN (7-18) mg/dl Creatinine (0.6-1.2) mg/dl Est Cr Clr Drug Dosing ml/min Est GFR ( Amer) Est GFR (Non-Af Amer) BUN/Creatinine Ratio (10-20) Glucose (70-99) mg/dl POC Glucose 161 H 121 H 185 H (70-99) Estimat Average Glucose Hemoglobin A1c Calcium (8.5-10.1) mg/dl Magnesium (1.8-2.4) mg/dl 06/21/19 06/21/19 06/21/19 Range/Units 11:31 11:30 07:16 WBC (4.8-10.8) K/uL RBC (4.2-5.4) M/uL Hgb (12.0-16.0) g/dL Hct (37-47) % MCV (80-100) fL MCH (25-34) pg MCHC (32-36) g/dL RDW Std Deviation (36.4-46.3) fL RDW Coeff of Marissa (11.5-14.5) % Plt Count (130-400) K/uL MPV (7.4-10.4) fL Immature Gran % (Auto) % Neut % (Auto) % Lymph % (Auto) % [place] % (Auto) % Eos % (Auto) % Baso % (Auto) % Immature Gran # (Auto) (0.00-0.02) K/uL Neut # (Auto) (1.4-6.5) K/uL Lymph # (Auto) (1.2-3.4) K/uL [place] # (Auto) (0.11-0.59) K/uL Eos # (Auto) (0-0.5) K/uL Baso # (Auto) (0-0.2) K/uL Sodium (136-145) mmol/L Potassium (3.5-5.1) mmol/L Chloride (98-107) mmol/L Carbon Dioxide (21-32) mmol/L Anion Gap (3-11) BUN (7-18) mg/dl Creatinine (0.6-1.2) mg/dl Est Cr Clr Drug Dosing ml/min Est GFR ( Amer) Est GFR (Non-Af Amer) BUN/Creatinine Ratio (10-20) Glucose (70-99) mg/dl POC Glucose 287 H 320 H* 128 H (70-99) Estimat Average Glucose Hemoglobin A1c Calcium (8.5-10.1) mg/dl Magnesium (1.8-2.4) mg/dl 06/21/19 06/21/19 06/21/19 Range/Units 06:30 06:30 06:30 WBC 6.32 (4.8-10.8) K/uL RBC 4.50 (4.2-5.4) M/uL Hgb 12.2 (12.0-16.0) g/dL Hct 39.2 (37-47) % MCV 87.1 (80-100) fL MCH 27.1 (25-34) pg MCHC 31.1 L (32-36) g/dL RDW Std Deviation 46.4 H (36.4-46.3) fL RDW Coeff of Marissa 14.6 H (11.5-14.5) % Plt Count 185 (130-400) K/uL MPV 11.3 H (7.4-10.4) fL Immature Gran % (Auto) 0.3 % Neut % (Auto) 69.1 % Lymph % (Auto) 17.7 % [place] % (Auto) 11.2 % Eos % (Auto) 1.4 % Baso % (Auto) 0.3 % Immature Gran # (Auto) 0.02 (0.00-0.02) K/uL Neut # (Auto) 4.36 (1.4-6.5) K/uL Lymph # (Auto) 1.12 L (1.2-3.4) K/uL [place] # (Auto) 0.71 H (0.11-0.59) K/uL Eos # (Auto) 0.09 (0-0.5) K/uL Baso # (Auto) 0.02 (0-0.2) K/uL Sodium 144 (136-145) mmol/L Potassium 3.3 L D (3.5-5.1) mmol/L Chloride 109 H (98-107) mmol/L Carbon Dioxide 28 (21-32) mmol/L Anion Gap 8.0 (3-11) BUN 16 (7-18) mg/dl Creatinine 0.99 (0.6-1.2) mg/dl Est Cr Clr Drug Dosing 33.3 ml/min Est GFR ( Amer) 58.6 Est GFR (Non-Af Amer) 50.5 BUN/Creatinine Ratio 15.8 (10-20) Glucose 111 H (70-99) mg/dl POC Glucose (70-99) Estimat Average Glucose Pending Hemoglobin A1c Pending Calcium 8.9 (8.5-10.1) mg/dl Magnesium 1.6 L (1.8-2.4) mg/dl PG Care Time/CCT Total # of Minutes Spent Total Time Spent with Patient: Total time spent is greater than 50% in coordination of care (as documented) at patient's floor/unit and/or counseling patient: (1) Fall Encounter type: subsequent encounter Qualified Code(s): W19.XXXD - Unspecified fall, subsequent encounter (2) Fracture of nasal bone Encounter type: initial encounter Fracture type: closed Qualified Code(s): S02.2XXA - Fracture of nasal bones, initial encounter for closed fracture
[2019-06-22 06:21] LABS: BUN Creatinine Ratio 16.3 (10-20); Calcium 8.5 mg/dl (8.5-10.1); Creatinine Clr Calc Pharmacy 25.3 ml/min; Est GFR (African American) 42.1; Est GFR (Non-African American) 36.3; Magnesium 2.1 mg/dl (1.8-2.4); Potassium 3.5 mmol/L (3.5-5.1)
[2019-06-22] MEDS: LEVOTHYROXINE SODIUM 50 MCG TABLET PO SCH (06:43)
[2019-06-22 07:13] LABS: Estimated Average Glucose 143 mg/dl; Hemoglobin A1C 6.6 % (4.5-5.6)
[2019-06-22] MEDS: CHOLECALCIFEROL 1,000 UNITS TAB PO SCH (08:29)
[2019-06-22] MEDS: POTASSIUM CHLORIDE 10 MEQ TABCR PO SCH (08:30)
[2019-06-22] MEDS: PANTOprazole 40 MG TAB PO SCH (08:30)
[2019-06-22] MEDS: CALCIUM 600MG + VIT D 400 IU TAB PO SCH (08:30)
[2019-06-22] MEDS: AMLODIPINE BESYLATE 5 MG TAB PO SCH (08:31)
[2019-06-22] MEDS: METOCLOPRAMIDE HCL 5 MG TABLET PO SCH ×3 (08:31→17:37)
[2019-06-22] MEDS: OMEGA-3 (PURIFIED FISH OIL) 1 GM CAP PO SCH ×2 (08:31→17:38)
[2019-06-22] MEDS: ASPIRIN 81 MG ECTAB PO SCH (08:31)
[2019-06-22] MEDS: INSULIN ASPART 100 UNITS/ML 3 ML PEN SC SCH ×4 (08:34→21:45)
--- NOTE | 2019-06-22 12:51 | Hospitalist Progress Note ---
Date of Service June 22, 2019 Assessment & Plan (1) Fall: Possible syncope leading to fall although pt is not the best historian Has had multiple recent falls Is dizzy with sitting up from lying down and is mildly orthostatic, dropping about 10 points systolic, but hypertensive to begin with Could be bradycardia induced? rates only in the low 50s on tele initially and now improving to the 60s with holding atenolol CXR, UA, WBC neg for infection No significant anemia/drop in hgb Serial troponin neg x 3 CT head neg for CVA EKG with 1st degree AV block, seen prior HR in the 40s/50s in the ED. Pt was admitted for syncope and fall 10/2017. She had a full workup including ECHO and carotid US that was neg. It was determined that pt's HR was dropping too low and her atenolol was stopped at d/c. Pt was noted to have 1st degree AV block at that time as well. At this time, atenolol seems to have been restarted since then. Also with significant hypokalemia which may have led to weakness -continue to hold atenolol-would permanently discontinue -Monitor BP and HR , continue tele -replaced K+ -follow BMP -needs skilled care after discharge (2) Dementia: At baseline per son (3) Diabetes: hold metformin from home while here HgbA1C 7.1% in 01/2019 -continue SSI, accuchecks -continue reglan for gastroparesis (4) CKD (chronic kidney disease) stage 3, GFR 30-59 ml/min: Cr is at baseline -avoid nephrotoxins - renally dose meds -follow BMP (5) HTN (hypertension): BPs quite elevated but drop slightly with lying to sitting -Continue amlodipine and increase dose to 10mg daily -dc'd atenolol as above -continue ASA 81mg daily Monitor (6) GERD (gastroesophageal reflux disease): continue home PPI (7) Hypothyroid: continue home LT4 50mcg daily TSH 1.6 (8) Hypokalemia: K+ very low on admission and may have contributed to falls/weakness--> unclear reason why K+ so low but daughter in law reports pt hardly drinks at all -replaced with po KCL (9) Hyperlipidemia: continue home statin (10) Orthostasis: mild, as above -hydrated -holding atenolol (11) Fracture of nasal bone: sustained nasal bone fracture during fall prior to admission no septal hematoma, has slight deviation of nasal bone -follow clinically and should have ENT follow up closely as outpt -pain control prn with APAP (12) DVT prophylaxis: SCDs Dispo - PT/OT evals, Case Management , needs SNF placement Dispo: [facility] unable to accept patient's insurance, now looking into [facility] Subjective Ms. Beltran is confused and unable to provide much history. She does mention some tenderness around her ecchymotic spots on her face but otherwise denies discomforts. Review of Systems Review of Systems: All systems reviewed & are unremarkable except as noted in HPI & below Physical Exam Physical Exam: General: no distress Eyes: normal inspection, PERLL Respiratory: chest non tender, clear to auscultation, normal breath sounds, no respiratory distress, no accessory muscle use Cardiac: regular rate and rhythm, no rub or gallop, no murmur, no edema, no jvd GI/: active bowel sounds, no abd pain or tenderness, soft, non distended Extremities: normal range of motion, normal strength, non tender Neuro/Psych: alert and oriented to person and place, normal mood and affect Skin: normal color, dry, ecchymosis bilateral eyes Results & Data Vital Signs (Past 12 Hours) Vital Signs Temp Pulse Resp BP Pulse Ox 06/22/19 12:18 146/64 H 06/22/19 07:18 36.7 C 63 18 168/79 H 95 PG Care Time/CCT Total # of Minutes Spent Total Time Spent with Patient: Total time spent is greater than 50% in coordination of care (as documented) at patient's floor/unit and/or counseling patient: (1) Fracture of nasal bone Encounter type: initial encounter Fracture type: closed Qualified Code(s): S02.2XXA - Fracture of nasal bones, initial encounter for closed fracture (2) Fall Encounter type: subsequent encounter Qualified Code(s): W19.XXXD - Unspecified fall, subsequent encounter
[2019-06-22] MEDS: SIMVASTATIN 20 MG TAB PO SCH (20:15)
[2019-06-23] MEDS: LEVOTHYROXINE SODIUM 50 MCG TABLET PO SCH (07:11)
[2019-06-23] MEDS: PANTOprazole 40 MG TAB PO SCH (08:36)
[2019-06-23] MEDS: CHOLECALCIFEROL 1,000 UNITS TAB PO SCH (08:36)
[2019-06-23] MEDS: CALCIUM 600MG + VIT D 400 IU TAB PO SCH (08:36)
[2019-06-23] MEDS: AMLODIPINE BESYLATE 5 MG TAB PO SCH (08:36)
[2019-06-23] MEDS: ASPIRIN 81 MG ECTAB PO SCH (08:37)
[2019-06-23] MEDS: METOCLOPRAMIDE HCL 5 MG TABLET PO SCH ×3 (08:37→17:03)
[2019-06-23] MEDS: POTASSIUM CHLORIDE 10 MEQ TABCR PO SCH (08:37)
[2019-06-23] MEDS: OMEGA-3 (PURIFIED FISH OIL) 1 GM CAP PO SCH ×2 (08:38→17:03)
[2019-06-23] MEDS: INSULIN ASPART 100 UNITS/ML 3 ML PEN SC SCH ×4 (08:40→21:12)
[2019-06-23 08:58] LABS: Hematocrit (blood only) 41.1 % (37-47); Hemoglobin 12.9 g/dL (12.0-16.0); Mean Corpuscular Hemoglobin 27.3 pg (25-34); Mean Corpuscular Hgb Conc 31.4 g/dL (32-36); Mean Corpuscular Volume 86.9 fL (80-100); Mean Platelet Volume 11.1 fL (7.4-10.4); Platelet Count 197 K/uL (130-400); RDW Coefficient of Variation 14.5 % (11.5-14.5); RDW Standard Deviation 46.2 fL (36.4-46.3); Red Blood Count 4.73 M/uL (4.2-5.4); White Blood Count 5.74 K/uL (4.8-10.8)
[2019-06-23 09:31] LABS: BUN Creatinine Ratio 22.2 (10-20); Calcium 9.1 mg/dl (8.5-10.1); Creatinine Clr Calc Pharmacy 27.2 ml/min; Est GFR (African American) 45.9; Est GFR (Non-African American) 39.6; Potassium 3.6 mmol/L (3.5-5.1)
--- NOTE | 2019-06-23 18:28 | Hospitalist Progress Note ---
Date of Service June 23, 2019 Assessment & Plan (1) Fall: Possible syncope leading to fall although pt is not the best historian Has had multiple recent falls Is dizzy with sitting up from lying down and is mildly orthostatic, dropping about 10 points systolic, but hypertensive to begin with Could be bradycardia induced? rates only in the low 50s on tele initially and now improving to the 60s with holding atenolol CXR, UA, WBC neg for infection No significant anemia/drop in hgb Serial troponin neg x 3 CT head neg for CVA EKG with 1st degree AV block, seen prior HR in the 40s/50s in the ED. Pt was admitted for syncope and fall 10/2017. She had a full workup including ECHO and carotid US that was neg. It was determined that pt's HR was dropping too low and her atenolol was stopped at d/c. Pt was noted to have 1st degree AV block at that time as well. At this time, atenolol seems to have been restarted since then. Also with significant hypokalemia which may have led to weakness -continue to hold atenolol-would permanently discontinue, heart rates have improved to normal -Monitor BP and HR , continue tele -replaced K+ -follow BMP -needs skilled care after discharge (2) Dementia: At baseline per son (3) Diabetes: hold metformin from home while here HgbA1C 7.1% in 01/2019 -continue SSI, accuchecks -continue reglan for gastroparesis (4) CKD (chronic kidney disease) stage 3, GFR 30-59 ml/min: Cr is at baseline -avoid nephrotoxins - renally dose meds -follow BMP (5) HTN (hypertension): BPs quite elevated but drop slightly with lying to sitting -Continue amlodipine and increase dose to 10mg daily -dc'd atenolol as above -continue ASA 81mg daily Monitor (6) GERD (gastroesophageal reflux disease): continue home PPI (7) Hypothyroid: continue home LT4 50mcg daily TSH 1.6 (8) Hypokalemia: K+ very low on admission and may have contributed to falls/weakness--> unclear reason why K+ so low but daughter in law reports pt hardly drinks at all -replaced with po KCL (9) Hyperlipidemia: continue home statin (10) Orthostasis: mild, as above -hydrated -holding atenolol (11) Fracture of nasal bone: sustained nasal bone fracture during fall prior to admission no septal hematoma, has slight deviation of nasal bone -follow clinically and should have ENT follow up closely as outpt -pain control prn with APAP - pain is controlled, no sign of respiratory compromise, blood count stable (12) DVT prophylaxis: SCDs Dispo: [facility] tomorrow (13) Bacteriuria: UC growing E. Faecalis - afebrile, no leukocytosis, patient denies burning or pain though she is not a very good historian, will hold off on treatment for now but will need to be monitored for signs of infection Subjective Ms. Beltran continues to be confused, but appears comfortable. Reports some tenderness around her bruising. Son Gadiel updated over the phone Review of Systems Review of Systems: All systems reviewed & are unremarkable except as noted in HPI & below Physical Exam Physical Exam: General: no distress Eyes: normal inspection, PERLL Respiratory: chest non tender, clear to auscultation, normal breath sounds, no respiratory distress, no accessory muscle use Cardiac: regular rate and rhythm, no rub or gallop, no murmur, no edema, no jvd GI/: active bowel sounds, no abd pain or tenderness, soft, non distended Extremities: normal range of motion, normal strength, non tender Neuro/Psych: alert and oriented x 3, normal mood and affect Skin: normal color, dry, ecchymosis around eyes and forehead Results & Data Vital Signs (Past 12 Hours) Vital Signs Temp Pulse Resp BP Pulse Ox 06/23/19 15:32 36.4 C L 80 16 146/72 H 95 06/23/19 08:00 37.0 C 81 18 142/71 H 94 PG Care Time/CCT Total # of Minutes Spent Total Time Spent with Patient: Total time spent is greater than 50% in coordination of care (as documented) at patient's floor/unit and/or counseling patient: (1) Fracture of nasal bone Encounter type: initial encounter Fracture type: closed Qualified Code(s): S02.2XXA - Fracture of nasal bones, initial encounter for closed fracture (2) Fall Encounter type: subsequent encounter Qualified Code(s): W19.XXXD - Unspecified fall, subsequent encounter
[2019-06-23] MEDS: SIMVASTATIN 20 MG TAB PO SCH (21:14)
[2019-06-24] MEDS: LEVOTHYROXINE SODIUM 50 MCG TABLET PO SCH (06:45)
[2019-06-24] MEDS: CALCIUM 600MG + VIT D 400 IU TAB PO SCH (08:38)
[2019-06-24] MEDS: AMLODIPINE BESYLATE 5 MG TAB PO SCH (08:38)
[2019-06-24] MEDS: PANTOprazole 40 MG TAB PO SCH (08:38)
[2019-06-24] MEDS: METOCLOPRAMIDE HCL 5 MG TABLET PO SCH ×2 (08:38→11:52)
[2019-06-24] MEDS: CHOLECALCIFEROL 1,000 UNITS TAB PO SCH (08:38)
[2019-06-24] MEDS: POTASSIUM CHLORIDE 10 MEQ TABCR PO SCH (08:38)
[2019-06-24] MEDS: ASPIRIN 81 MG ECTAB PO SCH (08:39)
[2019-06-24] MEDS: OMEGA-3 (PURIFIED FISH OIL) 1 GM CAP PO SCH (08:39)
[2019-06-24] MEDS: INSULIN ASPART 100 UNITS/ML 3 ML PEN SC SCH ×2 (08:42→13:34)
[2019-06-24] MEDS ORDERED: CIPROFLOXACIN 250 MG TAB PO SCH (11:00)
--- NOTE | 2019-06-24 13:57 | Discharge Summary ---
Date of Service June 24, 2019 Admission HPI Per Admitting Provider 88 y/o F who was transferred here from [facility] after a fall this AM. Pt initially does not remember falling and looks to her son for information regarding when she fell. Pt denies fever, SOB, chest pain, abd pain, n/v/c/d, LE pain or swelling. She states she has no pain. She states she has been eating without issue and likes most of the food at . Son states that he was called this AM and it was reported to his that pt fell while getting ready to go to breakfast. She does seem to remember details at that point. When asked if she tripped and fell vs passing out she quite emphatically replies that the passed out and was lightheaded prior to this. Son states that she has fallen 3 times in the last 10-12 days, none of the falls were witnessed and pt has some difficulty remembering the episodes clearly. Pt had been living with son and his after pt's had a recent hospitalization due to [place]. He is living in their home now, but cannot take care of pt due to her dementia, so she had moved in with her son. There was some issues with living there related to her fall and so she was placed in [facility] at [facility] about 2 weeks ago. Pt was admitted for syncope and fall 10/2017. She had a full workup including ECHO and carotid US that was neg. It was determined that pt's HR was dropping too low and her atenolol was stopped at d/c. Pt was noted to have 1st degree AV block at that time as well. At this time, atenolol seems to have been restarted. In going through [employer], I cannot find a note stating why, just an rx auth. On the visit that day (02/21/18) her BP was noted to be WNL, but no specific mention of management of HTN. There is no mention of restarting atenolol at that time. Principal Diagnosis Fall Discharge Exam Constitutional WD/WN, vitals as above Respiratory normal respiratory effort, lungs clear to auscultation Cardiovascular RRR, no murmur, no edema Gastrointestinal (Abdomen) normal bowel sounds, soft, nontender, no hepatosplenomegaly Musculoskeletal no cyanosis or clubbing, extremities motor strength 5/5 Skin no rashes, warm and dry Trauma: + contusion (forehead) and + periorbital ecchymosis Neurologic moves all extremities and awake Psychiatric Orientation: alert, oriented to person and oriented to place Discharge Data Allergies Allergy/AdvReac Type Severity Reaction Status Date / Time metronidazole Allergy Unknown RASH Verified 06/19/19 09:17 red dye Allergy Unknown RASH Verified 06/19/19 09:17 tinidazole Allergy Unknown RASH Verified 06/19/19 09:17 yellow dye Allergy Unknown RASH Verified 06/19/19 09:17 Consultations 06/19/19 11:32 ED Decision to Admit Stat 06/19/19 13:59 Consult Case Management - Discharge Planning Routine Ordered Studies 06/19/19 09:34 CT cervical spine wo con Stat CT facial bones wo con Stat CT head/brain wo con Stat Hospital Course (1) Fall: Possible syncope leading to fall although pt is not the best historian Has had multiple recent falls Is dizzy with sitting up from lying down and is mildly orthostatic, dropping about 10 points systolic, but hypertensive to begin with Could be bradycardia induced? rates only in the low 50s on tele initially and now improving to the 80s with holding atenolol CXR, WBC neg for infection - apparent UTI No significant anemia/drop in hgb Serial troponin neg x 3 CT head neg for CVA EKG with 1st degree AV block, seen prior HR in the 40s/50s in the ED. Pt was admitted for syncope and fall 10/2017. She had a full workup including ECHO and carotid US that was neg. It was determined that pt's HR was dropping too low and her atenolol was stopped at d/c. Pt was noted to have 1st degree AV block at that time as well. At this time, atenolol seems to have been restarted since then. Also with significant hypokalemia which may have led to weakness -continue to hold atenolol-would permanently discontinue, heart rates have improved to normal -replaced K+ (2) Dementia: At baseline per son (3) Fracture of nasal bone: sustained nasal bone fracture during fall prior to admission no septal hematoma, has slight deviation of nasal bone -follow clinically and should have ENT follow up closely as outpt -pain control prn with APAP - pain is controlled, no sign of respiratory compromise, blood count stable (4) HTN (hypertension): BPs quite elevated but drop slightly with lying to sitting -Continue amlodipine and increased dose to 10mg daily -dc'd atenolol as above -continue ASA 81mg daily (5) UTI (urinary tract infection): UC growing E. Faecalis - afebrile, no leukocytosis, per nursing however patient is having new episodes of incontinence with foul smelling urine so will treat with 3 days of Cipro (6) Orthostasis: mild, as above -hydrated -holding atenolol (7) Diabetes: hold metformin from home while here HgbA1C 7.1% in 01/2019 -continue SSI, accuchecks -continue reglan for gastroparesis - resume metformin for dc (8) CKD (chronic kidney disease) stage 3, GFR 30-59 ml/min: Cr is at baseline -avoid nephrotoxins - renally dose meds (9) Hypokalemia: K+ very low on admission and may have contributed to falls/weakness--> unclear reason why K+ so low but daughter in law reports pt hardly drinks at all -replaced with po KCL (10) Hyperlipidemia: continue home statin (11) Hypothyroid: continue home LT4 50mcg daily TSH 1.6 (12) GERD (gastroesophageal reflux disease): continue home PPI (13) DVT prophylaxis: SCDs Dispo: [facility] Total Time Total Time Spent Total Time Spent (In Minutes): greater than 30 minutes Discharge Plan Discharge Items Patient Disposition: Transfer Inpatient Rehab Fac Reason For Visit: SYNCOPE Discharge Diagnosis: Fall Activity: As commented below Activity Comment: gradually as recommended by PT Non-emergency contact: Primary Care Provider Call non-emergency contact if: you have any medication questions Follow-up/Referrals: KIN MORALES [Primary Care Provider] - Diet: Regular Addtl Attending Provider Instructions: Please arrange close follow up with ENT concerning fractured nasal bone sustained during fall prior to admission. Today is the first of 3 days of Cipro for UTI - has had one dose so far Atenolol has been stopped due to possible syncope. Amlodipine was increased from 5 mg to 10mg to control blood presures Pending Studies at Discharge: No Stand-Alone Forms: [employer] Skilled Items Patient informed of condition?: Yes DNR: No Discharge Level of Care: Acute rehab Communicable Disease: No Discharge Prognosis: Stable Lines: None Urinary Catheter: No Medications and DC Order Prescriptions: New acetaminophen [Mapap (acetaminophen)] 325 mg Tablet 650 mg PO Q4H PRN (Reason: pain) Qty: 30 RF: 0 amlodipine [Norvasc] 5 mg Tablet 10 mg PO QAM Qty: 30 RF: 0 ciprofloxacin HCl 250 mg Tablet 250 mg PO Q12H Qty: 5 RF: 0 Continued aspirin 81 mg Tablet,Delayed Release (Dr/Ec) 81 mg PO QAM Qty: 0 RF: 0 calcium carbonate [Calcium 600] 600 mg calcium (1,500 mg) Tablet 600 mg PO QAM Qty: 0 RF: 0 simvastatin 20 mg Tablet 20 mg PO HS Qty: 0 RF: 0 cholecalciferol (vitamin D3) 1,000 unit (25 mcg) Tablet 2,000 unit PO QAM Qty: 0 RF: 0 [place]-3 Fish Oil 300-1,000 mg Capsule 1 cap PO BIDM Qty: 0 RF: 0 metformin 500 mg Tablet Extended Release 24 Hr 500 mg PO BID Qty: 0 RF: 0 potassium chloride [Klor-Con M20] 20 mEq Tablet,Er Particles/Crystals 10 meq PO QAM Qty: 0 RF: 0 pantoprazole 20 mg tablet,delayed release (DR/EC) 20 mg PO QAM RF: 0 metoclopramide HCl 5 mg tablet 5 mg PO TIDM RF: 0 levothyroxine 50 mcg tablet 50 mcg PO QAM RF: 0 Discontinued amlodipine 5 mg Tablet 5 mg PO QAM Qty: 0 RF: 0 atenolol 100 mg Tablet 100 mg PO QAM RF: 0 Discharge Orders: Discharge Order (Routine); Ordered 06/24/19 Ordered By: Susana Mora Admission Data Admit Date/Time: 06/19/19 12:32 Attending Provider: Lux Cameron Admit Provider: Cristina Robert Primary Care Provider: KIN MORALES Other Providers: Cristina Robert Other Interventions: Discharge Summary Assessment (RN) Last Done: 06/24/19 14:04
== END 2019-06-24 15:20 | DRG 312 ==
LOC: ED 08:42 → 2E 12:32 → SUATTDRO 12:32 → 2E 13:18 → 3N 06-21 13:00

== ENCOUNTER 2019-06-24 19:44 | Inpatient (IN) ==
[2019-06-24] MEDS ORDERED: SODIUM CHLORIDE 0.9% 500 ML IV SCH (20:00)
[2019-06-24 20:19] LABS: Basophils # (auto) 0.02 K/uL (0-0.2); Basophils % (auto) 0.2 %; Eosinophils # (auto) 0.09 K/uL (0-0.5); Hematocrit (blood only) 38.7 % (37-47); Hemoglobin 12.2 g/dL (12.0-16.0); Immature Granulocytes # (auto) 0.03 K/uL (0.00-0.02); Immature Granulocytes % (auto) 0.3 %; Lymphocytes # (auto) 0.58 K/uL (1.2-3.4); Lymphocytes % (auto) 6.3 %; Mean Corpuscular Hemoglobin 27.6 pg (25-34); Mean Corpuscular Hgb Conc 31.5 g/dL (32-36); Mean Corpuscular Volume 87.6 fL (80-100); Mean Platelet Volume 10.9 fL (7.4-10.4); Monocytes # (auto) 0.69 K/uL (0.11-0.59); Monocytes % (auto) 7.5 %; Neutrophils # (auto) 7.74 K/uL (1.4-6.5); Neutrophils % (auto) 84.7 %; Platelet Count 178 K/uL (130-400); RDW Coefficient of Variation 14.6 % (11.5-14.5); RDW Standard Deviation 46.9 fL (36.4-46.3); Red Blood Count 4.42 M/uL (4.2-5.4); White Blood Count 9.15 K/uL (4.8-10.8)
[2019-06-24 20:35] LABS: Albumin Level 3.4 gm/dl (3.4-5.0); BUN Creatinine Ratio 17.5 (10-20); Calcium 10.1 mg/dl (8.5-10.1); Creatinine Clr Calc Pharmacy 26.5 ml/min; Est GFR (African American) 46.9; Est GFR (Non-African American) 40.4; Potassium 3.6 mmol/L (3.5-5.1)
[2019-06-24 20:43] LABS: Appearance Urine Clear (Clear); Bacteria Urine Automated 4+ (Negative); Bilirubin Urine Negative (Negative); Blood Urine Negative (Negative); Color Urine Yellow; Epithelial Cell Urine Auto 20-30 /lpf (0-5); Glucose Urine UA 1+ (Negative); Ketones Urine Negative (Negative); Leukocyte Esterase Urine Negative (Negative); Nitrite Urine Negative (Negative); Protein Urine 1+ (Negative); RBC Urine Automated 0-4 /hpf (0-4); Specific Gravity Urine 1.014 (1.000-1.030); Urobilinogen Urine Negative (Negative); pH Urine 6.5 (4.5-7.5)
[2019-06-24 20:46] LABS: Bilirubin,Total 0.5 mg/dl (0.2-1); Globulin 3.5 gm/dl (2.5-4.0); Total Protein 6.9 gm/dl (6.4-8.2); Troponin I 0.064 ng/ml (0-0.045)
--- NOTE | 2019-06-24 20:49 | CT Scan Report ---
CT OF THE HEAD WITHOUT CONTRAST CLINICAL HISTORY: Fall. COMPARISON STUDY: Head CT June 19, 2019. CT DOSE: 537.48 mGy.cm TECHNIQUE: Helical axial images of the head were obtained without IV contrast. Automated exposure con trol was utilized for the study. A dose lowering technique was utilized adhering to the principles o f ALARA. FINDINGS: No acute intracranial hemorrhage, midline shift or mass effect is present. Ventricular dila tation is unchanged and due to atrophy. The basilar cisterns are patent. There are no extra axial col lections. Extensive white matter hypodensities are unchanged and favor small vessel disease. There ar e no findings to suggest acute dural sinus thrombosis or acute territorial infarct. The appearance of the brain is unchanged. A small right frontal scalp contusion has decreased in size. Left mastoidect myah is unchanged in appearance. There is no calvarial fracture. IMPRESSION: 1. No acute intracranial findings. 2. No calvarial fracture. Electronically signed by: Juan Copeland M.D. 06/24/2019 8:48 PM
--- NOTE | 2019-06-24 20:52 | XRay Report ---
XR chest 1V portable CLINICAL HISTORY: Fall. COMPARISON STUDY: Chest radiograph June 19, 2019. FINDINGS: Lung volumes are normal. Lungs are clear. There is no pneumothorax or pleural effusion. Car diac size is normal. Mediastinal contours are normal. There is no evidence for pulmonary edema. IMPRESSION: No acute cardiopulmonary findings. Electronically signed by: Juan Copeland M.D. 06/24/2019 8:50 PM
--- NOTE | 2019-06-24 20:53 | XRay Report ---
XR pelvis 1-2V routine CLINICAL HISTORY: Fall. COMPARISON: CT of the abdomen and pelvis March 27, 2017. FINDINGS: Sacroiliac joints and symphysis pubis are intact. Pelvic calcifications favor phleboliths. A sclerotic focus within the left acetabulum is unchanged. There is mild osteoarthritis of the hips. No acute fracture within the pelvis or hips is noted. IMPRESSION: No acute fracture within the pelvis or hips. Electronically signed by: Juan Copeland M.D. 06/24/2019 8:52 PM
[2019-06-24] MEDS ORDERED: cefTRIAXone SODIUM 2,000 MG/70 ML BAG IV STA (21:07)
[2019-06-24] MEDS ORDERED: ALBUT/IPRATROP 3MG/0.5MG NEB 3 ML VIAL NEB ONE (21:07)
[2019-06-24] MEDS ORDERED: LEVOFLOXACIN/D5W 750 MG/150 ML BAG IV STA (21:08)
--- NOTE | 2019-06-24 23:12 | History & Physical Report ---
Date of Service June 24, 2019 Assessment & Plan (1) Fall: Status post fall. May be secondary to urinary tract infection. PT/OT assessment before discharge Present on Admission?: Yes (2) UTI (urinary tract infection): Previous admission urine culture is growing Enterococcus faecalis. Received levofloxacin IV in the ED, and will continue 500 mg IV daily Present on Admission?: Yes (3) Hyperlipidemia: Continue simvastatin 20 mg at bedtime Present on Admission?: Yes (4) HTN (hypertension): Continue amlodipine and aspirin. Present on Admission?: Yes (5) GERD (gastroesophageal reflux disease): On pantoprazole 20 mg p.o. every morning. Change to famotidine 20 mg IV every 12 hours until more alert. Present on Admission?: Yes (6) Elevated troponin I level: Likely due to supply demand mismatch stress of UTI and fall. She is DNR/DNI would not want any aggressive treatment performed. Recheck troponin in a.m. Present on Admission?: Yes (7) Diabetes: Hold metformin. Place on Accu-Cheks with NovoLog coverage Present on Admission?: Yes History of Present Illness Chief Complaint: Patient was brought to the emergency department after a fall took place at the facility where the resident is staying, shortly after she arrived from her discharge from [facility]. Primary Care Provider: PALOMA SANDERSON The patient is not able to contribute to her review of systems or HPI due to altered mental state. The patient is an 88-year-old female most recently admitted to [facility] from 06/19-06/24 after a recent fall. In the emergency department today, patient was found to have an ecchymosis above her left eye, had a normal CT of head without bleed, had a normal chest x-ray and x-ray of pelvis and hip. She did have a urinalysis suggestive of UTI. Allergies Allergy/AdvReac Type Severity Reaction Status Date / Time metronidazole Allergy Unknown RASH Verified 06/24/19 20:52 red dye Allergy Unknown RASH Verified 06/24/19 20:52 tinidazole Allergy Unknown RASH Verified 06/24/19 20:52 yellow dye Allergy Unknown RASH Verified 06/24/19 20:52 Home Medications Home Medications Medication Instructions Recorded Confirmed Type [place]-3 Fish Oil 1 cap PO DAILY #0 06/08/13 06/24/19 History aspirin 81 mg PO QAM #0 06/08/13 06/24/19 History calcium carbonate [Calcium 600] 600 mg PO QAM #0 06/08/13 06/24/19 History cholecalciferol (vitamin D3) 2,000 unit PO QAM #0 cap 06/08/13 06/24/19 History metformin 500 mg PO BID #0 tab 06/08/13 06/24/19 History simvastatin 20 mg PO HS #0 tab 06/08/13 06/24/19 History potassium chloride [Klor-Con M20] 10 meq PO QAM #0 tab 12/24/16 06/24/19 History levothyroxine 50 mcg PO QAM 06/04/19 06/24/19 History metoclopramide HCl 5 mg PO TIDM 06/04/19 06/24/19 History pantoprazole 20 mg PO QAM 06/04/19 06/24/19 History acetaminophen [Mapap 650 mg PO Q4H PRN #30 tab 06/24/19 06/24/19 Rx (acetaminophen)] acetaminophen [Tylenol] 650 mg PO Q6H PRN 06/24/19 06/24/19 History amlodipine [Norvasc] 10 mg PO QAM #30 tab 06/24/19 06/24/19 Rx ciprofloxacin HCl 250 mg PO Q12H #5 tab 06/24/19 06/24/19 Rx Past Med/Surg History Family History Father Myocardial infarction Other No pertinent family history Social History Preferred Language: Senegalese Communication Ability: Effective Aircraft Assembler Required: No Beliefs That Will Affect Care: None Current Living Situation: Personal Care Facility Current Living Situation Comment: [facility] Feels Safe at Home: Yes Smoking Status: Never smoker Hx Alcohol Use: No Hx Substance Use: No Review of Systems Review of Systems: Unobtainable due to cognitive status Physical Exam Physical Exam: The patient is nonresponsive, bruise above left eye, lying in bed and in no acute distress. HEENT--PERRL, EOMI, mucous membranes and oropharynx dry. Neck--supple. No JVD. No bruits. Thyroid normal, trachea midline, no a denopathy. Heart--normal S1 and S2. No murmurs, rubs or gallops. Lungs--clear bilaterally, but diminished. No respiratory distress, no accessory muscle use. Abdomen--normal bowel sounds and soft. Nontender. Nondistended, no hernias or masses, no organomegaly. Extremities--no cyanosis or clubbing. No edema. There are good distal pulses b/l. Dermatologic--normal skin turgor, normal color, no abnormal lymph nodes, no rash. Neurologic--cranial nerves II through XII grossly intact. Rheumatologic--normal range of motion. Psychiatric--normal affect. Results & Data Vital Signs (Past 12 Hours) Vital Signs Temp Pulse Pulse Resp BP BP Pulse Ox 06/24/19 23:06 105 H 20 141/88 H 06/24/19 22:00 93 H 20 169/68 H 06/24/19 21:00 93 H 18 159/89 H 06/24/19 20:54 83 14 149/73 H 97 06/24/19 20:37 85 20 143/66 H 95 06/24/19 20:13 94 06/24/19 20:00 98.4 F 95 H 18 166/84 H 94 06/24/19 19:47 87 18 166/84 H 06/24/19 19:43 89 L Laboratory Results Laboratory Results WBC 9.15 K/uL (4.8-10.8) 06/24/19 20:07 RBC 4.42 M/uL (4.2-5.4) 06/24/19 20:07 Hgb 12.2 g/dL (12.0-16.0) 06/24/19 20:07 Hct 38.7 % (37-47) 06/24/19 20:07 MCV 87.6 fL (80-100) 06/24/19 20:07 MCH 27.6 pg (25-34) 06/24/19 20:07 MCHC 31.5 g/dL (32-36) L 06/24/19 20:07 RDW Std Deviation 46.9 fL (36.4-46.3) H 06/24/19 20:07 RDW Coeff of Marissa 14.6 % (11.5-14.5) H 06/24/19 20:07 Plt Count 178 K/uL (130-400) 06/24/19 20:07 MPV 10.9 fL (7.4-10.4) H 06/24/19 20:07 Immature Gran % (Auto) 0.3 % 06/24/19 20:07 Neut % (Auto) 84.7 % 06/24/19 20:07 Lymph % (Auto) 6.3 % 06/24/19 20:07 [place] % (Auto) 7.5 % 06/24/19 20:07 Eos % (Auto) 1.0 % 06/24/19 20:07 Baso % (Auto) 0.2 % 06/24/19 20:07 Immature Gran # (Auto) 0.03 K/uL (0.00-0.02) H 06/24/19 20:07 Neut # (Auto) 7.74 K/uL (1.4-6.5) H 06/24/19 20:07 Lymph # (Auto) 0.58 K/uL (1.2-3.4) L 06/24/19 20:07 [place] # (Auto) 0.69 K/uL (0.11-0.59) H 06/24/19 20:07 Eos # (Auto) 0.09 K/uL (0-0.5) 06/24/19 20:07 Baso # (Auto) 0.02 K/uL (0-0.2) 06/24/19 20:07 Sodium 140 mmol/L (136-145) 06/24/19 20:07 Potassium 3.6 mmol/L (3.5-5.1) 06/24/19 20:07 Chloride 105 mmol/L (98-107) 06/24/19 20:07 Carbon Dioxide 28 mmol/L (21-32) 06/24/19 20:07 Anion Gap 8.0 (3-11) 06/24/19 20:07 BUN 21 mg/dl (7-18) H 06/24/19 20:07 Creatinine 1.19 mg/dl (0.6-1.2) 06/24/19 20:07 Est Cr Clr Drug Dosing 26.5 ml/min 06/24/19 20:07 Est GFR ( Amer) 46.9 06/24/19 20:07 Est GFR (Non-Af Amer) 40.4 06/24/19 20:07 BUN/Creatinine Ratio 17.5 (10-20) 06/24/19 20:07 Glucose 245 mg/dl (70-99) H 06/24/19 20:07 Calcium 10.1 mg/dl (8.5-10.1) 06/24/19 20:07 Total Bilirubin 0.5 mg/dl (0.2-1) 06/24/19 20:07 AST 12 U/L (15-37) L 06/24/19 20:07 ALT 15 U/L (12-78) 06/24/19 20:07 Alkaline Phosphatase 62 U/L (45-117) 06/24/19 20:07 Total Creatine Kinase 72 U/L (26-192) 06/24/19 20:07 Troponin I 0.064 ng/ml (0-0.045) H* 06/24/19 20:07 Total Protein 6.9 gm/dl (6.4-8.2) 06/24/19 20:07 Albumin 3.4 gm/dl (3.4-5.0) 06/24/19 20:07 Globulin 3.5 gm/dl (2.5-4.0) 06/24/19 20:07 Albumin/Globulin Ratio 1.0 (0.9-2) 06/24/19 20:07 Urine Color Yellow 06/24/19 20:12 Urine Appearance Clear (Clear) 06/24/19 20:12 Urine pH 6.5 (4.5-7.5) 06/24/19 20:12 Ur Specific [place] 1.014 (1.000-1.030) 06/24/19 20:12 Urine Protein 1+ (Negative) H 06/24/19 20:12 Urine Glucose (UA) 1+ (Negative) H 06/24/19 20:12 Urine Ketones Negative (Negative) 06/24/19 20:12 Urine Blood Negative (Negative) 06/24/19 20:12 Urine Nitrite Negative (Negative) 06/24/19 20:12 Urine Bilirubin Negative (Negative) 06/24/19 20:12 Urine Urobilinogen Negative (Negative) 06/24/19 20:12 Ur Leukocyte Esterase Negative (Negative) 06/24/19 20:12 Urine WBC (Auto) 5-10 /hpf (0-5) H 06/24/19 20:12 Urine RBC (Auto) 0-4 /hpf (0-4) 06/24/19 20:12 U Hyaline Cast (Auto) 1-5 /lpf (0-5) 06/24/19 20:12 U Epithel Cells (Auto) 20-30 /lpf (0-5) H 06/24/19 20:12 Urine Bacteria (Auto) 4+ (Negative) H 06/24/19 20:12 Diagnostic Findings [place], [place] [phone] XRay Report Patient: KERRY JALLOH Date: 06/24/19 MR#: [id number]: [id number] DIS[address] Acct ID:[id number]: [employer] Date: 1930[facility] Zip: [place] [address] Age: 88Location: ED Sex: F Room/Bed: Att Phy:Diagnosis: SYNCOPE, STROKE SX [facility]: [facility] Fam Phy:Interpreting Phy: Juan Copeland MD Admit Phy: Ordering Phy: Flavio Latif MD cc: ~ XR pelvis 1-2V routine CLINICAL HISTORY: Fall. COMPARISON: CT of the abdomen and pelvis March 27, 2017. FINDINGS: Sacroiliac joints and symphysis pubis are intact. Pelvic calcifications favor phleboliths. A sclerotic focus within the left acetabulum is unchanged. There is mild osteoarthritis of the hips. No acute fracture within the pelvis or hips is noted. IMPRESSION: No acute fracture within the pelvis or hips. Electronically signed by: Juan Copeland M.D. 06/24/2019 8:52 PM Dictated: 06/24/192050 Transcribed: 06/24/192050 [place], [place] [phone] CT Scan Report Patient: KERRY JALLOH Date: 06/24/19 MR#: [id number]: [id number] DISCOVERY Acct ID:[id number]: [facility] Date: 1930[facility] Zip: [place] [address] Age: 88Location: ED Sex: F Room/Bed: Att Phy:Diagnosis: SYNCOPE, STROKE SX [facility]: [facility] Fam Phy:Interpreting Phy: Juan Copeland MD Admit Phy: Ordering Phy: Flavio Latif MD cc: ~ CT OF THE HEAD WITHOUT CONTRAST CLINICAL HISTORY: Fall. COMPARISON STUDY: Head CT June 19, 2019. CT DOSE: 537.48 mGy.cm TECHNIQUE: Helical axial images of the head were obtained without IV contrast. Automated exposure control was utilized for the study. A dose lowering technique was utilized adhering to the principles of ALARA. FINDINGS: No acute intracranial hemorrhage, midline shift or mass effect is present. Ventricular dilatation is unchanged and due to atrophy. The basilar cis terns are patent. There are no extra axial collections. Extensive white matter hypodensities are unchanged and favor small vessel disease. There are no findings to suggest acute dural sinus thrombosis or acute territorial infarct. The appearance of the brain is unchanged. A small right frontal scalp contusion has decreased in size. Left mastoidectomy is unchanged in appearance. There is no calvarial fracture. IMPRESSION: 1. No acute intracranial findings. 2. No calvarial fracture. Electronically signed by: Juan Copeland M.D. 06/24/2019 8:48 PM Dictated: 06/24/192043 Transcribed: 06/24/192043 [place], [place] [phone] XRay Report Patient: KERRY JALLOH Date: 06/24/19 MR#: [id number]: [id number] Acct ID:[id number]: [facility] Date: 1930[facility] Zip: [place] [address] Age: 88Location: ED Sex: F Room/Bed: Att Phy:Diagnosis: SYNCOPE, STROKE SX Charis Phy: [facility] Date: 06/24/19 Fam Phy:Interpreting Phy: Juan Copeland MD Admit Phy: Ordering Phy: Flavio Latif MD cc: ~ XR chest 1V portable CLINICAL HISTORY: Fall. COMPARISON STUDY: Chest radiograph June 19, 2019. FINDINGS: Lung volumes are normal. Lungs are clear. There is no pneumothorax or pleural effusion. Cardiac size is normal. Mediastinal contours are normal. There is no evidence for pulmonary edema. IMPRESSION: No acute cardiopulmonary findings. Electronically signed by: Juan Copeland M.D. 06/24/2019 8:50 PM Dictated: 06/24/192048 Transcribed: 06/24/192048 Code Status & VTE Plan Code Status DNR/DNI VTE Prophylaxis Plan VTE Prophylaxis will be ordered: Yes PG Care Time/CCT Total # of Minutes Spent Total Time Spent with Patient: Total time spent is greater than 50% in coordination of care (as documented) at patient's floor/unit and/or counseling patient: (1) UTI (urinary tract infection) Hematuria presence: without hematuria Urinary tract infection type: site unspecified Qualified Code(s): N39.0 - Urinary tract infection, site not specified (2) Fall Encounter type: initial encounter Qualified Code(s): W19.XXXA - Unspecified fall, initial encounter
[2019-06-25] MEDS ORDERED: ACETAMINOPHEN 325 MG TAB PO PRN ×2 (00:12)
[2019-06-25] MEDS ORDERED: GLUCAGON FOR INJ 1 MG VIAL SQ PRN (00:12)
[2019-06-25] MEDS ORDERED: ALUMINUM/MAGNESIUM SUSP 30 ML UDC PO PRN (00:12)
[2019-06-25] MEDS ORDERED: GLUCOSE 40% GEL 15 GM TUBE PO PRN (00:12)
[2019-06-25] MEDS ORDERED: DEXTROSE 50% 50 ML SYRINGE IV PRN (00:12)
[2019-06-25] MEDS ORDERED: GLUCOSE 10 TABS/TUBE PO PRN (00:12)
[2019-06-25] MEDS ORDERED: MAGNESIUM HYDROXIDE SUSP 30 ML UDC PO PRN (00:12)
[2019-06-25] MEDS ORDERED: CARBOHYDRATES FOR HYPOGLYCEMIA PO PRN (00:12)
[2019-06-25] MEDS ORDERED: ONDANSETRON INJ 2 MG/ML 2 ML VIAL IV PRN (00:12)
[2019-06-25] MEDS: NSS + 20MEQ KCL 20 MEQ/1,000 ML BAG IV SCH ×3 (01:30→22:13)
[2019-06-25] MEDS: LEVOTHYROXINE SODIUM 50 MCG TABLET PO SCH (04:21)
[2019-06-25] MEDS: FAMOTIDINE 20 MG in SYRINGE 3 ML IV SCH ×2 (04:21→14:50)
[2019-06-25] MEDS: POTASSIUM CHLORIDE 10 MEQ TABCR PO SCH (08:48)
[2019-06-25] MEDS: CALCIUM 600MG + VIT D 400 IU TAB PO SCH (08:48)
[2019-06-25] MEDS: ASPIRIN 81 MG ECTAB PO SCH (08:48)
[2019-06-25] MEDS: METOCLOPRAMIDE HCL 5 MG TABLET PO SCH ×3 (08:48→17:36)
[2019-06-25] MEDS: OMEGA-3 (PURIFIED FISH OIL) 1 GM CAP PO SCH (08:49)
[2019-06-25] MEDS: CHOLECALCIFEROL 1,000 UNITS TAB PO SCH (08:49)
[2019-06-25] MEDS ORDERED: PANTOprazole 40 MG TAB PO SCH (09:00)
[2019-06-25] MEDS ORDERED: AMLODIPINE BESYLATE 5 MG TAB PO SCH (09:00)
[2019-06-25] MEDS: INSULIN ASPART 100 UNITS/ML 3 ML PEN SC SCH ×4 (09:02→20:08)
[2019-06-25] MEDS: HEPARIN SOD 5,000 UNIT/0.5 ML VIAL SQ SCH ×2 (10:04→20:00)
--- NOTE | 2019-06-25 15:37 | CT Scan Report ---
CT facial bones wo con CLINICAL HISTORY: 88 years-old Female presenting with nasal bone fracture. TECHNIQUE: Multidetector CT of the face was performed without the use of intravenous contrast. IV con trast: None. One or more dose lowering techniques were used consistent with the principles of ALARA ( as low as reasonably achievable), including automatic exposure control, mA or kV adjustment to indivi dual patient size, and/or use of iterative reconstruction. COMPARISON: 06/19/2019. CT DOSE (mGy.cm): The estimated cumulative dose is 640.63 mGy.cm. FINDINGS: Statistical Machine Servicer topogram: Unremarkable. Minimally displaced bilateral nasal bone fractures, slightly comminuted on the right. The appearance is unchanged from prior exam. There is slight rightward deviation, which is predominantly due to the deviated bony nasal septum. No evidence of a fracture of the bony nasal septum. Paranasal sinuses and mastoid air cells clear apart from postsurgical changes of left mastoidectomy. The skull base is intact. Temporomandibular joints intact allowing for left mastoidectomy. Amalgam sl ightly degrades evaluation of the oral cavity. Degenerative changes of the upper cervical spine witho ut evidence of fracture. Soft tissues of the face demonstrate interval decreased swelling of the right frontal scalp at the si te of the recent contusion and trace hematoma. Some degree of hematoma and swelling persists. Limited intracranial evaluation demonstrates age-related parenchymal volume loss. The orbits demonstrate abs ence of the [place] lenses bilaterally. IMPRESSION: 1. Stable appearance of the mildly comminuted bilateral nasal bone fractures. No new fracture. 2. Slight interval decrease in size of the contusion and trace hematoma in the right frontal scalp. Electronically signed by: Willian Perez M.D. 06/25/2019 3:35 PM
--- NOTE | 2019-06-25 17:36 | Hospitalist Progress Note ---
Date of Service June 25, 2019 Assessment & Plan (1) Fall: Has had multiple recent falls - most recently patient was discharged 06/24 to [facility] where unfortunately she sustained a fall apparently while using the bathroom. CT head without acute process EKG with 1st degree AV block, seen prior Pt was admitted for syncope and fall 10/2017. She had a full workup including ECHO and carotid US that was neg. It was determined that pt's HR was dropping too low and her atenolol was stopped at d/c. Pt was noted to have 1st degree AV block at that time as well. At this time, atenolol seems to have been restarted since then. continue to hold atenolol-would permanently discontinue, heart rates have improved to normal since last admission (2) UTI (urinary tract infection): Previous admission urine culture is growing Enterococcus faecalis for which she had started Cipro - will continue (3) Elevated troponin I level: Likely due to supply demand mismatch stress of fall. She is DNR/DNI would not want any aggressive treatment performed. Troponin peaked at .064 and then normalized (4) Hyperlipidemia: Continue simvastatin 20 mg at bedtime (5) HTN (hypertension): Continue amlodipine and aspirin. (6) GERD (gastroesophageal reflux disease): On pantoprazole 20 mg p.o. every morning. Change to famotidine 20 mg IV every 12 hours until more alert. (7) Diabetes: Hold metformin. Place on Accu-Cheks with NovoLog coverage (8) Fracture of nasal bone: Sustained prior to last admission Repeat CT face showed stable fracture, resolving head contusion (9) Dementia: With delirium 1:1 At baseline patient can say who and where she is and can participate in some conversation but gets confused easily (10) DVT prophylaxis: SCDs Supervising Physician Co-Signing Physician Notes I supervised Susana Mora NP on this patient's care. I examined the patient today independently of her. I discussed the plan of care with her with the plan being as written in her note except for any following changes/exceptions: None. 88yo F w/ hx of dementia and falls presenting for another fall at [facility]. Per report, she was on the commode and had a vasovagal episode. She likely cannot tolerate a lower/normal BP given these incidents. We will continue UTI treatment, have PT/OT re-evaluate, and attempt return to [facility] as safe. Subjective Ms. Beltran is very confused, trying to get out of bed. Unable to obtain ROS. Physical Exam Physical Exam: General: no distress Eyes: normal inspection, PERLL Respiratory: chest non tender, clear to auscultation, normal breath sounds, no respiratory distress, no accessory muscle use Cardiac: regular rate and rhythm, no rub or gallop, no murmur, no edema, no jvd GI/: active bowel sounds, no abd pain or tenderness, soft, non distended Extremities: normal range of motion, normal strength, non tender Neuro/Psych: confused, restless Skin: normal color, dry, ecchymosis around eyes Results & Data Vital Signs (Past 12 Hours) Vital Signs Temp Pulse Pulse Resp BP Pulse Ox 06/25/19 15:40 36.4 C L 82 18 155/68 H 94 06/25/19 08:47 99 H 156/83 H PG Care Time/CCT Total # of Minutes Spent Total Time Spent with Patient: Total time spent is greater than 50% in coordination of care (as documented) at patient's floor/unit and/or counseling patient: (1) UTI (urinary tract infection) Hematuria presence: without hematuria Urinary tract infection type: site unspecified Qualified Code(s): N39.0 - Urinary tract infection, site not specified (2) Fracture of nasal bone Encounter type: initial encounter Fracture type: closed Qualified Code(s): S02.2XXA - Fracture of nasal bones, initial encounter for closed fracture (3) Fall Encounter type: initial encounter Qualified Code(s): W19.XXXA - Unspecified fall, initial encounter
[2019-06-25] MEDS: CIPROFLOXACIN 250 MG TAB PO SCH (20:00)
[2019-06-25] MEDS: SIMVASTATIN 20 MG TAB PO SCH (20:00)
[2019-06-25] MEDS ORDERED: LEVOFLOXACIN/D5W 500 MG/100 ML BAG IV SCH (22:00)
--- NOTE | 2019-06-25 22:37 | Emergency Department Note ---
Entered by Анна Laws acting as a scribe for History of Present Illness General Chief complaint: Fall Stated complaint: SYNCOPE, STROKE SX Time Seen by Provider: 06/24/19 19:50 Source: other (nurse) History of Present Illness Provider complaint: stroke-like symptoms Onset (ago): unknown Pain Consistency: + other (episode) Quality: + other (stroke-like symptoms) Associated symptoms: + other (old facial ecchymosis, abdomen tender to palpation) The patient is an 88 year old female who presents to the ED with complaints of an episode of stroke-like symptoms that started at an unknown time. Per nursing staff, the patient was sent here secondary to left arm droop and left facial droop. The patient states that her abdomen is tender to palpation. Per nursing staff, the patients facial ecchymosis is not new. HPI and ROS limited secondary to cognitive status. Home Medications Home Medications Medication Instructions Recorded Confirmed Type [place]-3 Fish Oil 1 cap PO DAILY #0 06/08/13 06/24/19 History aspirin 81 mg PO QAM #0 06/08/13 06/24/19 History calcium carbonate [Calcium 600] 600 mg PO QAM #0 06/08/13 06/24/19 History cholecalciferol (vitamin D3) 2,000 unit PO QAM #0 cap 06/08/13 06/24/19 History metformin 500 mg PO BID #0 tab 06/08/13 06/24/19 History simvastatin 20 mg PO HS #0 tab 06/08/13 06/24/19 History potassium chloride [Klor-Con M20] 10 meq PO QAM #0 tab 12/24/16 06/24/19 History levothyroxine 50 mcg PO QAM 06/04/19 06/24/19 History metoclopramide HCl 5 mg PO TIDM 06/04/19 06/24/19 History pantoprazole 20 mg PO QAM 06/04/19 06/24/19 History acetaminophen [Mapap 650 mg PO Q4H PRN #30 tab 06/24/19 06/24/19 Rx (acetaminophen)] acetaminophen [Tylenol] 650 mg PO Q6H PRN 06/24/19 06/24/19 History amlodipine [Norvasc] 10 mg PO QAM #30 tab 06/24/19 06/24/19 Rx ciprofloxacin HCl 250 mg PO Q12H #5 tab 06/24/19 06/24/19 Rx Allergies Allergy/AdvReac Type Severity Reaction Status Date / Time metronidazole Allergy Unknown RASH Verified 06/24/19 20:52 red dye Allergy Unknown RASH Verified 06/24/19 20:52 tinidazole Allergy Unknown RASH Verified 06/24/19 20:52 yellow dye Allergy Unknown RASH Verified 06/24/19 20:52 Past Med/Surg History Family History Father Myocardial infarction Other No pertinent family history Social History Preferred Language: Niuean Communication Ability: Impaired Machine D[place] Required: No Beliefs That Will Affect Care: None Current Living Situation: Personal Care Facility Current Living Situation Comment: [facility] Feels Safe at Home: Yes Smoking Status: Never smoker Hx Alcohol Use: No Hx Substance Use: No Review of Systems See HPI for pertinent positives & negatives. Unobtainable due to cognitive status Physical Exam Vital Signs Vital Signs - 24 hr 06/24/19 19:43 06/24/19 19:47 06/24/19 20:00 Temperature 36.9 C Temperature Source Oral Sepsis Recent Fever Within 48 Hours No Sepsis Action Taken by Nursing No Action Required Pulse Rate 87 95 H Pulse Rate [Finger] Pulse Rate from SpO2 Sensor Respiratory Rate 18 18 Respiratory Effort / Characteristics Non-Labored Spontaneous Respiratory Depth Normal Respiratory Pattern Regular Blood Pressure 166/84 H 166/84 H Blood Pressure [Left Arm] Blood Pressure Mean 111 111 Blood Pressure Mean [Left Arm] Blood Pressure Position Lying Pulse Oximetry 89 L 94 Oxygen Delivery Method Room Air Nasal Cannula Oxygen Flow Rate 2 06/24/19 20:13 06/24/19 20:37 06/24/19 20:54 Temperature Temperature Source Sepsis Recent Fever Within 48 Hours Sepsis Action Taken by Nursing Pulse Rate 85 83 Pulse Rate [Finger] Pulse Rate from SpO2 Sensor 86 83 Respiratory Rate 20 14 Respiratory Effort / Characteristics Respiratory Depth Respiratory Pattern Blood Pressure 143/66 H 149/73 H Blood Pressure [Left Arm] Blood Pressure Mean 91 98 Blood Pressure Mean [Left Arm] Blood Pressure Position Pulse Oximetry 94 95 97 Oxygen Delivery Method Nasal Cannula Oxygen Flow Rate 06/24/19 21:00 06/24/19 22:00 06/24/19 23:06 Temperature Temperature Source Sepsis Recent Fever Within 48 Hours Sepsis Action Taken by Nursing Pulse Rate 93 H 93 H Pulse Rate [Finger] 105 H Pulse Rate from SpO2 Sensor Respiratory Rate 18 20 20 Respiratory Effort / Characteristics Respiratory Depth Respiratory Pattern Blood Pressure 159/89 H 169/68 H Blood Pressure [Left Arm] 141/88 H Blood Pressure Mean 112 101 Blood Pressure Mean [Left Arm] 105 Blood Pressure Position Pulse Oximetry Oxygen Delivery Method Room Air Oxygen Flow Rate GENERAL: Awake, alert, well-appearing, in no acute distress HENT: Ecchymosis present to the face. Normocephalic. Oropharynx unremarkable. EYES: Normal conjunctiva. Sclera non-icteric. NECK: Supple. No nuchal rigidity. FROM. No JVD. RESPIRATORY: Clear to auscultation. CARDIAC: Regular rate, normal rhythm. Extremities warm and well perfused. Pulses equal. ABDOMEN: Soft, non-distended. No tenderness to palpation. No rebound or guarding. No masses. RECTAL: Deferred. MUSCULOSKELETAL: Chest examination reveals no tenderness. The back is symmetrical on inspection without obvious abnormality. There is no CVA ten derness to palpation. No joint edema. LOWER EXTREMITIES: Calves are equal size bilaterally and non-tender. No edema. No discoloration. NEURO: Normal sensorium. No sensory or motor deficits noted. SKIN: No rash or jaundice noted. Course 1952: Past medical records reviewed. The patient was evaluated in room A4. A complete history and physical exam was performed. 2229: I discussed the patient's case with Dr. Martinez [facility], Hospitalist. He will evaluate the patient for further management. Consultations Consultation #1: I discussed the patient's case with Dr. Martinez [facility], Hospitalist. He will evaluate the patient for further management. Time: 22:30 Administered Medications Aspirin (Ecotrin Ectab) 81 mg PO QAM [facility] Stop: 07/25/19 08:59 Last Admin: 06/25/19 08:48 Dose: 81 mg Documented by: [id number] Ciprofloxacin (Cipro) 250 mg PO BID [facility]; Protocol Stop: 07/04/19 09:01 Last Admin: 06/25/19 20:00 Dose: 250 mg Documented by: [id number] Fish Oil ([place]-3 (Purified Fish Oil)) 1 gm PO DAILY [facility] Stop: 07/25/19 08:59 Last Admin: 06/25/19 08:49 Dose: 1 gm Documented by: [id number] Heparin Sodium (Porcine) (Heparin Sodium (Porcine)) 5,000 units SQ Q12 [facility] Stop: 07/25/19 08:59 Last Admin: 06/25/19 20:00 Dose: 5,000 units Documented by: [id number] Cosigned by: [id number] Admin: 06/25/19 10:04 Dose: Not Given Documented by: [id number] Potassium Chloride/Sodium Chloride (Normal Saline W/20 Meq Kcl) 20 meq in 1,000 mls @ 100 mls/hr IV .Q10H JESSICA Stop: 07/25/19 00:11 Last Admin: 06/25/19 22:13 Dose: 100 mls/hr Documented by: [id number] Infusion: 06/25/19 21:20 Dose: 0 mls/hr Documented by: [id number] Admin: 06/25/19 10:29 Dose: 100 mls/hr Documented by: [id number] Infusion: 06/25/19 10:29 Dose: 100 mls/hr Documented by: [id number] Admin: 06/25/19 01:30 Dose: 100 mls/hr Documented by: [id number] Famotidine 20 mg/ Syringe 5 mls @ 2.5 mls/min IV Q12H JESSICA Stop: 07/25/19 02:59 Last Admin: 06/25/19 14:50 Dose: 2.5 mls/min Documented by: [id number] Admin: 06/25/19 04:21 Dose: 2.5 mls/min Documented by: [id number] Insulin Aspart (Novolog Flexpen) 0 units SC ACHS JESSICA Stop: 07/25/19 07:29 Last Admin: 06/25/19 20:08 Dose: 2 units Documented by: [id number] Cosigned by: [id number] Admin: 06/25/19 17:37 Dose: 7 units Documented by: [id number] Cosigned by: [id number] Admin: 06/25/19 12:44 Dose: 5 units Documented by: [id number] Cosigned by: [id number] Admin: 06/25/19 09:02 Dose: Not Given Documented by: [id number] Cosigned by: [id number] Levothyroxine Sodium (Synthroid) 50 mcg PO DAILYBB JESSICA Stop: 07/25/19 06:29 Last Admin: 06/25/19 04:21 Dose: 50 mcg Documented by: [id number] Metoclopramide HCl (Reglan) 5 mg PO TIDM JESSICA Stop: 07/25/19 07:59 Last Admin: 06/25/19 17:36 Dose: 5 mg Documented by: [id number] Admin: 06/25/19 12:43 Dose: 5 mg Documented by: [id number] Admin: 06/25/19 08:48 Dose: 5 mg Documented by: [id number] Multivitamins/Minerals ([facility]) [facility]: 07/25/19 08:59 Last Admin: 06/25/19 08:48 Dose: 1 tab Documented by: [id number] Ondansetron HCl (Zofran) 4 mg IV Q6H PRN PRN Reason: Nausea Stop: 07/25/19 00:11 Last Admin: 06/25/19 10:51 Dose: 4 mg Documented by: [id number] Potassium Chloride (Klor-Con M10) [facility] Stop: 07/25/19 08:59 Last Admin: 06/25/19 08:48 Dose: 10 meq Documented by: [id number] Simvastatin (Zocor) 20 mg PO [facility] Stop: 07/25/19 20:59 Last Admin: 06/25/19 20:00 Dose: 20 mg Documented by: [id number] Vitamin D (Vitamin D3) 2,000 units PO [facility] Stop: 07/25/19 08:59 Last Admin: 06/25/19 08:49 Dose: 2,000 units Documented by: [id number] Discontinued Medications Albuterol (Duoneb) 12 ml NEB ONE ONE Stop: 06/24/19 21:08 Last Admin: 06/24/19 21:25 Dose: 12 ml Documented by: [id number] Amlodipine Besylate (Norvasc) 10 mg PO [facility] Stop: 07/25/19 08:59 Last Admin: 06/25/19 08:49 Dose: 10 mg Documented by: [id number] Sodium Chloride (Nss) 500 mls @ 999 mls/hr IV .Q31M JESSICA Stop: 06/24/19 20:30 Last Infusion: 06/24/19 22:33 Dose: 0 mls/hr Documented by: [id number] Admin: 06/24/19 20:53 Dose: 999 mls/hr Documented by: [id number] Ceftriaxone Sodium (Rocephin) 2,000 mg in 70 mls @ 140 mls/hr IV NOW STA Stop: 06/24/19 21:36 Last Infusion: 06/24/19 22:33 Dose: 0 mls/hr Documented by: [id number] Admin: 06/24/19 21:55 Dose: 140 mls/hr Documented by: [id number] Levofloxacin/Dextrose (Levaquin/D5w) 750 mg in 150 mls @ 100 mls/hr IV NOW STA Stop: 06/24/19 22:37 Last Infusion: 06/25/19 00:04 Dose: 0 mls/hr Documented by: [id number] Admin: 06/24/19 22:34 Dose: 100 mls/hr Documented by: [id number] Medical Decision Making Differential Diagnosis Differential diagnosis: Etiologies such as fracture, cervical/vertebral injury, dislocation, intra- abdominal process, pneumothorax, intrathoracic trauma, intracranial injury, soft tissue injury, neurologic process, as well as other traumatic pathologies were entertained. Medical Records Attestation: I reviewed the patient's medical records. Home Medications Current Medication List: was personally reviewed by me Laboratory Data Attestation: I reviewed the patient's lab results. Result diagrams: 06/24/19 20:07 06/24/19 20:07 Lab Results 06/24/19 06/24/19 06/24/19 Range/Units 20:07 20:07 20:12 WBC 9.15 (4.8-10.8) K/uL RBC 4.42 (4.2-5.4) M/uL Hgb 12.2 (12.0-16.0) g/dL Hct 38.7 (37-47) % MCV 87.6 (80-100) fL MCH 27.6 (25-34) pg MCHC 31.5 L (32-36) g/dL RDW Std Deviation 46.9 H (36.4-46.3) fL RDW Coeff of Marissa 14.6 H (11.5-14.5) % Plt Count 178 (130-400) K/uL MPV 10.9 H (7.4-10.4) fL Immature Gran % (Auto) 0.3 % Neut % (Auto) 84.7 % Lymph % (Auto) 6.3 % [place] % (Auto) 7.5 % Eos % (Auto) 1.0 % Baso % (Auto) 0.2 % Immature Gran # (Auto) 0.03 H (0.00-0.02) K/uL Neut # (Auto) 7.74 H (1.4-6.5) K/uL Lymph # (Auto) 0.58 L (1.2-3.4) K/uL [place] # (Auto) 0.69 H (0.11-0.59) K/uL Eos # (Auto) 0.09 (0-0.5) K/uL Baso # (Auto) 0.02 (0-0.2) K/uL Sodium 140 (136-145) mmol/L Potassium 3.6 (3.5-5.1) mmol/L Chloride 105 (98-107) mmol/L Carbon Dioxide 28 (21-32) mmol/L Anion Gap 8.0 (3-11) BUN 21 H (7-18) mg/dl Creatinine 1.19 (0.6-1.2) mg/dl Est Cr Clr Drug Dosing 26.5 ml/min Est GFR ( Amer) 46.9 Est GFR (Non-Af Amer) 40.4 BUN/Creatinine Ratio 17.5 (10-20) Glucose 245 H (70-99) mg/dl Calcium 10.1 (8.5-10.1) mg/dl Total Bilirubin 0.5 (0.2-1) mg/dl AST 12 L (15-37) U/L ALT 15 (12-78) U/L Alkaline Phosphatase 62 (45-117) U/L Total Creatine Kinase 72 (26-192) U/L Troponin I 0.064 H* (0-0.045) ng/ml Total Protein 6.9 (6.4-8.2) gm/dl Albumin 3.4 (3.4-5.0) gm/dl Globulin 3.5 (2.5-4.0) gm/dl Albumin/Globulin Ratio 1.0 (0.9-2) Urine Color Yellow Urine Appearance Clear (Clear) Urine pH 6.5 (4.5-7.5) Ur Specific [place] 1.014 (1.000-1.030) Urine Protein 1+ H (Negative) Urine Glucose (UA) 1+ H (Negative) Urine Ketones Negative (Negative) Urine Blood Negative (Negative) Urine Nitrite Negative (Negative) Urine Bilirubin Negative (Negative) Urine Urobilinogen Negative (Negative) Ur Leukocyte Esterase Negative (Negative) Urine WBC (Auto) 5-10 H (0-5) /hpf Urine RBC (Auto) 0-4 (0-4) /hpf U Hyaline Cast (Auto) 1-5 (0-5) /lpf U Epithel Cells (Auto) 20-30 H (0-5) /lpf Urine Bacteria (Auto) 4+ H (Negative) Imaging Data Radiologist's Impression: Radiology results as stated below per my review and the radiologist's interpretation: CT OF THE HEAD WITHOUT CONTRAST CLINICAL HISTORY: Fall. COMPARISON STUDY: Head CT June 19, 2019. CT DOSE: 537.48 mGy.cm TECHNIQUE: Helical axial images of the head were obtained without IV contrast. Automated exposure control was utilized for the study. A dose lowering technique was utilized adhering to the principles of ALARA. FINDINGS: No acute intracranial hemorrhage, midline shift or mass effect is present. Ventricular dilatation is unchanged and due to atrophy. The basilar cisterns are patent. There are no extra axial collections. Extensive white matter hypodensities are unchanged and favor small vessel disease. There are no findings to suggest acute dural sinus thrombosis or acute territorial infarct. The appearance of the brain is unchanged. A small right frontal scalp contusion has decreased in size. Left mastoidectomy is unchanged in appearance. There is no calvarial fracture. IMPRESSION: 1. No acute intracranial findings. 2. No calvarial fracture. Electronically signed by: Juan Copeland M.D. 06/24/2019 8:48 PM XR chest 1V portable CLINICAL HISTORY: Fall. COMPARISON STUDY: Chest radiograph June 19, 2019. FINDINGS: Lung volumes are normal. Lungs are clear. There is no pneumothorax or pleural effusion. Cardiac size is normal. Mediastinal contours are normal. There is no evidence for pulmonary edema. IMPRESSION: No acute cardiopulmonary findings. Electronically signed by: Juan Copeland M.D. 06/24/2019 8:50 PM XR pelvis 1-2V routine CLINICAL HISTORY: Fall. COMPARISON: CT of the abdomen and pelvis March 27, 2017. FINDINGS: Sacroiliac joints and symphysis pubis are intact. Pelvic calcifications favor phleboliths. A sclerotic focus within the left acetabulum is unchanged. There is mild osteoarthritis of the hips. No acute fracture within the pelvis or hips is noted. IMPRESSION: No acute fracture within the pelvis or hips. Electronically signed by: Juan Copeland M.D. 06/24/2019 8:52 PM ECG Data Attestation: I personally reviewed and interpreted this ECG as follows: Indication: syncope Rate (beats per minute): 83 Rhythm: sinus rhythm Findings: + 1st degree AV block and + PAC; no ST depression and no ST elevation Blood Pressure Blood Pressure Findings: Elevated blood pressure Blood Pressure Disposition: further management by hospitalist FREDERICK Vallejo This is an 88-year-old female who presents emergency department complaining of another fall at her care home. Upon arrival to the emergency department the patient appears to have a new urinary tract infection. She does not appear to have any symptoms of stroke on physical examination. Regardless she is not a candidate for TPA due to the recent trauma to her face. She was started on Rocephin here in the emergency department as well as Levaquin. I did discuss the case with the hospitalist service who agreed to admit the patient. Patient was in agreement with the treatment plan. Impression & Plan Fall, UTI (urinary tract infection) Discharge Plan Visit Data *Final* Discharge Date/Time: 06/24/19 23:34 Chief Complaint: Fall Stated Complaint: SYNCOPE, STROKE SX ED Provider: lFavio Latif Discharge Problem: Fall, UTI (urinary tract infection) Patient Disposition: Admitted As Inpatient Discharge Instructions Interventions: ED Discharge Assessment Last Done: 06/24/19 23:34 Discharge Problem: Fall Qualifiers: Encounter type: initial encounter Qualified Code(s): W19.XXXA - Unspecified fall, initial encounter UTI (urinary tract infection) Qualifiers: Urinary tract infection type: site unspecified Hematuria presence: without hematuria Qualified Code(s): N39.0 - Urinary tract infection, site not specified The scribe's documentation has been prepared under my direction and personally reviewed by me in its entirety. I confirm that the note above accurately reflects all work, treatment, procedures, and medical decision making performed by me.
[2019-06-26] MEDS: FAMOTIDINE 20 MG in SYRINGE 3 ML IV SCH ×2 (04:29→14:17)
[2019-06-26] MEDS: NSS + 20MEQ KCL 20 MEQ/1,000 ML BAG IV SCH ×2 (06:16→16:19)
[2019-06-26] MEDS: LEVOTHYROXINE SODIUM 50 MCG TABLET PO SCH (06:18)
[2019-06-26] MEDS: INSULIN ASPART 100 UNITS/ML 3 ML PEN SC SCH ×4 (08:35→21:00)
[2019-06-26] MEDS: CALCIUM 600MG + VIT D 400 IU TAB PO SCH (08:36)
[2019-06-26] MEDS: OMEGA-3 (PURIFIED FISH OIL) 1 GM CAP PO SCH (08:36)
[2019-06-26] MEDS: ASPIRIN 81 MG ECTAB PO SCH (08:36)
[2019-06-26] MEDS: AMLODIPINE BESYLATE 5 MG TAB PO SCH (08:36)
[2019-06-26] MEDS: METOCLOPRAMIDE HCL 5 MG TABLET PO SCH ×3 (08:36→17:38)
[2019-06-26] MEDS: CHOLECALCIFEROL 1,000 UNITS TAB PO SCH (08:36)
[2019-06-26] MEDS: POTASSIUM CHLORIDE 10 MEQ TABCR PO SCH (08:37)
[2019-06-26] MEDS: CIPROFLOXACIN 250 MG TAB PO SCH ×2 (08:37→21:00)
[2019-06-26] MEDS: HEPARIN SOD 5,000 UNIT/0.5 ML VIAL SQ SCH ×2 (08:37→21:00)
[2019-06-26] MEDS ORDERED: BISACODYL 10 MG SUPP PR ONE (09:31)
[2019-06-26] MEDS ORDERED: POLYETHYLENE (MIRALAX) 17 GM PACK PO PRN (09:31)
--- NOTE | 2019-06-26 12:28 | Hospitalist Progress Note ---
Date of Service June 26, 2019 Assessment & Plan (1) Fall: Has had multiple recent falls - most recently patient was discharged 06/24 to [facility] where unfortunately she had a vasovagal event while using the bathroom there later that evening. CT head without acute process EKG with 1st degree AV block, seen prior Pt was admitted for syncope and fall 10/2017. She had a full workup including ECHO and carotid US that was neg. It was determined that pt's HR was dropping too low and her atenolol was stopped at d/c. Pt was noted to have 1st degree AV block at that time as well. Atenolol seems to have been restarted since 2018 and discontinued last admission - would keep her off atenolol permanently, heart rates are wnl (2) UTI (urinary tract infection): Previous admission urine culture is growing Enterococcus faecalis for which she had started Cipro - will continue (3) Elevated troponin I level: Likely due to supply demand mismatch stress of vagal event. She is DNR/DNI would not want any aggressive treatment performed. Troponin peaked at .064 and then normalized (4) Hyperlipidemia: Continue simvastatin 20 mg at bedtime (5) HTN (hypertension): Continue amlodipine and aspirin. (6) GERD (gastroesophageal reflux disease): On pantoprazole 20 mg p.o. every morning. Change to famotidine 20 mg IV every 12 hours until more alert. (7) Diabetes: Hold metformin. Place on Accu-Cheks with NovoLog coverage (8) Fracture of nasal bone: Sustained prior to last admission Repeat CT face showed stable fracture, resolving head contusion (9) Dementia: With delirium Remains on 1:1 but no longer provider ordered, per nursing descretion Appears to be at baseline today (10) DVT prophylaxis: SCDs Dispo: [facility] Subjective Ms. Beltran appears comfortable. She denies any pain. Review of Systems Review of Systems: All systems reviewed & are unremarkable except as noted in HPI & below Physical Exam Physical Exam: General: no distress Eyes: normal inspection, PERLL Respiratory: chest non tender, clear to auscultation, normal breath sounds, no respiratory distress, no accessory muscle use Cardiac: regular rate and rhythm, no rub or gallop, no murmur, no edema, no jvd GI/: active bowel sounds, no abd pain or tenderness, soft, non distended Extremities: normal range of motion, normal strength, non tender Neuro/Psych: alert and oriented to person and place , normal mood and affect Skin: normal color, dry Results & Data Vital Signs (Past 12 Hours) Vital Signs Temp Pulse BP 06/26/19 02:53 35.7 C L 80 151/79 H PG Care Time/CCT Total # of Minutes Spent Total Time Spent with Patient: Total time spent is greater than 50% in coordination of care (as documented) at patient's floor/unit and/or counseling patient: (1) UTI (urinary tract infection) Hematuria presence: without hematuria Urinary tract infection type: site unspecified Qualified Code(s): N39.0 - Urinary tract infection, site not sp ecified (2) Fracture of nasal bone Encounter type: initial encounter Fracture type: closed Qualified Code(s): S02.2XXA - Fracture of nasal bones, initial encounter for closed fracture (3) Fall Encounter type: initial encounter Qualified Code(s): W19.XXXA - Unspecified fall, initial encounter
[2019-06-26] MEDS: SIMVASTATIN 20 MG TAB PO SCH (21:00)
[2019-06-27] MEDS: NSS + 20MEQ KCL 20 MEQ/1,000 ML BAG IV SCH (03:36)
[2019-06-27] MEDS: FAMOTIDINE 20 MG in SYRINGE 3 ML IV SCH (03:39)
[2019-06-27] MEDS: LEVOTHYROXINE SODIUM 50 MCG TABLET PO SCH (06:32)
[2019-06-27] MEDS: INSULIN ASPART 100 UNITS/ML 3 ML PEN SC SCH ×4 (08:13→22:02)
[2019-06-27] MEDS: AMLODIPINE BESYLATE 5 MG TAB PO SCH (08:14)
[2019-06-27] MEDS: HEPARIN SOD 5,000 UNIT/0.5 ML VIAL SQ SCH ×2 (08:14→22:03)
[2019-06-27] MEDS: CALCIUM 600MG + VIT D 400 IU TAB PO SCH (08:14)
[2019-06-27] MEDS: OMEGA-3 (PURIFIED FISH OIL) 1 GM CAP PO SCH (08:15)
[2019-06-27] MEDS: METOCLOPRAMIDE HCL 5 MG TABLET PO SCH ×3 (08:15→17:58)
[2019-06-27] MEDS: POTASSIUM CHLORIDE 10 MEQ TABCR PO SCH (08:15)
[2019-06-27] MEDS: CIPROFLOXACIN 250 MG TAB PO SCH ×2 (08:15→22:00)
[2019-06-27] MEDS: CHOLECALCIFEROL 1,000 UNITS TAB PO SCH (08:15)
[2019-06-27] MEDS: ASPIRIN 81 MG ECTAB PO SCH (08:15)
[2019-06-27 09:00] LABS: Hematocrit (blood only) 39.7 % (37-47); Hemoglobin 12.5 g/dL (12.0-16.0); Mean Corpuscular Hemoglobin 27.2 pg (25-34); Mean Corpuscular Hgb Conc 31.5 g/dL (32-36); Mean Corpuscular Volume 86.5 fL (80-100); Mean Platelet Volume 10.6 fL (7.4-10.4); Platelet Count 170 K/uL (130-400); RDW Coefficient of Variation 14.7 % (11.5-14.5); RDW Standard Deviation 46.8 fL (36.4-46.3); Red Blood Count 4.59 M/uL (4.2-5.4); White Blood Count 5.33 K/uL (4.8-10.8)
[2019-06-27 09:28] LABS: Calcium 9.1 mg/dl (8.5-10.1); Creatinine Clr Calc Pharmacy 32.3 ml/min; Est GFR (African American) 56.5; Est GFR (Non-African American) 48.7; Magnesium 1.7 mg/dl (1.8-2.4); Potassium 3.7 mmol/L (3.5-5.1)
[2019-06-27] MEDS: MAGNESIUM OXIDE 400 MG TAB PO SCH (12:25)
--- NOTE | 2019-06-27 12:35 | Hospitalist Progress Note ---
Date of Service June 27, 2019 Assessment & Plan (1) Fall: Has had multiple recent falls - most recently patient was discharged 06/24 to [facility] where unfortunately she had a vasovagal event while using the bathroom there later that evening. CT head without acute process EKG with 1st degree AV block, seen prior Pt was admitted for syncope and fall 10/2017. She had a full workup including ECHO and carotid US that was neg. It was determined that pt's HR was dropping too low and her atenolol was stopped at d/c. Pt was noted to have 1st degree AV block at that time as well. Atenolol seems to have been restarted since 2017 and discontinued last admission - would keep her off atenolol permanently, heart rates are wnl (2) UTI (urinary tract infection): Previous admission urine culture is growing Enterococcus faecalis for which she had started Cipro - last day of antibiotics 06/27 (3) Elevated troponin I level: Likely due to supply demand mismatch stress of vagal event. She is DNR/DNI would not want any aggressive treatment performed. Troponin peaked at .064 and then normalized (4) Hyperlipidemia: Home simvastatin cotinued (5) HTN (hypertension): home amlodipine and aspirin continued, atenolol stopped as above (6) GERD (gastroesophageal reflux disease): dc IV famotidine, resume home po pantoprazole (7) Diabetes: Hold metformin. Place on Accu-Cheks with NovoLog coverage (8) Fracture of nasal bone: Sustained prior to last admission Repeat CT face showed stable fracture, resolving head contusion (9) Dementia: With delirium Remains on 1:1 but no longer provider ordered, per nursing discretion Will dc IVs as this seems to be the problem keeping her with a 1:1 as she is trying to pull IV Per son, this is more confused than her baseline (10) DVT prophylaxis: SCDs Dispo: [facility] Subjective Ms. Beltran appears comfortable although she continues to have periods of agitation and she has required a 1:1. Her son was updated bedside. Patient denies pain but is otherwise not able to give much concrete ROS Physical Exam Physical Exam: General: no distress Eyes: normal inspection, PERLL Respiratory: chest non tender, clear to auscultation, normal breath sounds, no respiratory distress, no accessory muscle use Cardiac: regular rate and rhythm, no rub or gallop, no murmur, no edema, no jvd GI/: active bowel sounds, no abd pain or tenderness, soft, non distended Extremities: normal range of motion, normal strength, non tender Neuro/Psych: alert and oriented to person, normal mood and affect Skin: normal color, dry, facial ecchymosis improving Results & Data Vital Signs (Past 12 Hours) Vital Signs Temp Pulse Resp BP Pulse Ox 06/27/19 06:51 36.9 C 88 20 159/92 H 93 PG Care Time/CCT Total # of Minutes Spent Total Time Spent with Patient: Total time spent is greater than 50% in coordination of care (as documented) at patient's floor/unit and/or counseling patient: (1) Fall Encounter type: initial encounter Qualified Code(s): W19.XXXA - Unspecified fall, initial encounter (2) UTI (urinary tract infection) Hematuria presence: without hematuria Urinary tract infection type: site unspecified Qualified Code(s): N39.0 - Urinary tract infection, site not specified (3) Fracture of nasal bone Encounter type: initial encounter Fracture type: closed Qualified Code(s): S02.2XXA - Fracture of nasal bones, initial encounter for closed fracture
[2019-06-27] MEDS: SIMVASTATIN 20 MG TAB PO SCH (22:00)
[2019-06-28] MEDS: LEVOTHYROXINE SODIUM 50 MCG TABLET PO SCH (06:42)
[2019-06-28] MEDS: INSULIN ASPART 100 UNITS/ML 3 ML PEN SC SCH ×5 (10:00→21:48)
[2019-06-28] MEDS: CHOLECALCIFEROL 1,000 UNITS TAB PO SCH (10:03)
[2019-06-28] MEDS: METOCLOPRAMIDE HCL 5 MG TABLET PO SCH ×4 (10:03→18:47)
[2019-06-28] MEDS: AMLODIPINE BESYLATE 5 MG TAB PO SCH (10:03)
[2019-06-28] MEDS: OMEGA-3 (PURIFIED FISH OIL) 1 GM CAP PO SCH (10:04)
[2019-06-28] MEDS: CALCIUM 600MG + VIT D 400 IU TAB PO SCH (10:04)
[2019-06-28] MEDS: MAGNESIUM OXIDE 400 MG TAB PO SCH (10:05)
[2019-06-28] MEDS: PANTOprazole 40 MG TAB PO SCH (10:05)
[2019-06-28] MEDS: HEPARIN SOD 5,000 UNIT/0.5 ML VIAL SQ SCH ×2 (10:06→21:51)
[2019-06-28] MEDS: POTASSIUM CHLORIDE 10 MEQ TABCR PO SCH (10:06)
[2019-06-28] MEDS: ASPIRIN 81 MG ECTAB PO SCH (10:06)
--- NOTE | 2019-06-28 13:31 | Hospitalist Progress Note ---
Date of Service June 28, 2019 Assessment & Plan (1) Fall: Has had multiple recent falls - most recently patient was discharged 06/24 to [facility] where unfortunately she had a vasovagal event while using the bathroom there later that evening and returned to the hospital. CT head without acute process EKG with 1st degree AV block, seen prior Pt was admitted for syncope and fall 10/2017. She had a full workup including ECHO and carotid US that was neg. It was determined that pt's HR was dropping too low and her atenolol was stopped at d/c. Pt was noted to have 1st degree AV block at that time as well. Atenolol seems to have been restarted since 2018 and discontinued last admission - would keep her off atenolol permanently, heart rates are wnl (2) UTI (urinary tract infection): Previous admission urine culture grew Enterococcus faecalis for which she had started Cipro - last day of antibiotics 06/27 (3) Elevated troponin I level: Likely due to supply demand mismatch stress of vagal event. She is DNR/DNI would not want any aggressive treatment performed. Troponin peaked at .064 and then normalized (4) Hyperlipidemia: Home simvastatin continued (5) HTN (hypertension): home amlodipine and aspirin continued, atenolol stopped as above (6) GERD (gastroesophageal reflux disease): continue home po pantoprazole (7) Diabetes: Hold metformin. Place on Accu-Cheks with NovoLog coverage (8) Fracture of nasal bone: Sustained prior to last admission Repeat CT face showed stable fracture, resolving head contusion Follow up with ENT outpatient after discharge (9) Dementia: With delirium No longer 1:1 DC'd IVs to minimize her agitation (10) DVT prophylaxis: SCDs Dispo: [facility] likely tomorrow if auth approved Subjective Ms. Beltran is very confused this morning but calm. She is unable to tell me her name. She cannot participate in review of systems Physical Exam Physical Exam: General: no distress Eyes: normal inspection, PERLL Respiratory: chest non tender, clear to auscultation, normal breath sounds, no respiratory distress, no accessory muscle use Cardiac: regular rate and rhythm, no rub or gallop, no murmur, no edema, no jvd GI/: active bowel sounds, no abd pain or tenderness, soft, non distended Extremities: normal range of motion, normal strength, non tender Neuro/Psych: alert and disoriented, calm, flat affect Skin: normal color, dry, ecchymosis of the face continues to improve Results & Data Vital Signs (Past 12 Hours) Vital Signs Temp Pulse Resp BP Pulse Ox 06/28/19 08:05 36.8 C 82 19 159/84 H 92 PG Care Time/CCT Total # of Minutes Spent Total Time Spent with Patient: Total time spent is greater than 50% in coordination of care (as documented) at patient's floor/unit and/or counseling patient: (1) Fall Encounter type: initial encounter Qualified Code(s): W19.XXXA - Unspecified fall, initial encounter (2) UTI (urinary tract infection) Hematuria presence: without hematuria Urinary tract infection type: site unspecified Qualified Code(s): N39.0 - Urinary tract infection, site not specified (3) Fracture of nasal bone Encounter type: initial encounter Fracture type: closed Qualified Code(s): S02.2XXA - Fracture of nasal bones, initial encounter for closed fracture
[2019-06-28] MEDS: SIMVASTATIN 20 MG TAB PO SCH (21:47)
[2019-06-29] MEDS: LEVOTHYROXINE SODIUM 50 MCG TABLET PO SCH (06:00)
[2019-06-29] MEDS: CALCIUM 600MG + VIT D 400 IU TAB PO SCH (08:53)
[2019-06-29] MEDS: CHOLECALCIFEROL 1,000 UNITS TAB PO SCH (08:53)
[2019-06-29] MEDS: METOCLOPRAMIDE HCL 5 MG TABLET PO SCH ×2 (08:53→13:13)
[2019-06-29] MEDS: AMLODIPINE BESYLATE 5 MG TAB PO SCH (08:53)
[2019-06-29] MEDS: PANTOprazole 40 MG TAB PO SCH (08:53)
[2019-06-29] MEDS: POTASSIUM CHLORIDE 10 MEQ TABCR PO SCH (08:54)
[2019-06-29] MEDS: MAGNESIUM OXIDE 400 MG TAB PO SCH (08:54)
[2019-06-29] MEDS: ASPIRIN 81 MG ECTAB PO SCH (08:54)
[2019-06-29] MEDS: OMEGA-3 (PURIFIED FISH OIL) 1 GM CAP PO SCH (08:55)
[2019-06-29] MEDS: INSULIN ASPART 100 UNITS/ML 3 ML PEN SC SCH ×2 (08:56→13:12)
[2019-06-29] MEDS: HEPARIN SOD 5,000 UNIT/0.5 ML VIAL SQ SCH (08:57)
[2019-06-29 09:13] LABS: Hematocrit (blood only) 40.9 % (37-47); Mean Corpuscular Hemoglobin 27.4 pg (25-34); Mean Corpuscular Hgb Conc 31.8 g/dL (32-36); Mean Corpuscular Volume 86.1 fL (80-100); Mean Platelet Volume 10.7 fL (7.4-10.4); Platelet Count 181 K/uL (130-400); RDW Coefficient of Variation 14.9 % (11.5-14.5); RDW Standard Deviation 47.5 fL (36.4-46.3); Red Blood Count 4.75 M/uL (4.2-5.4); White Blood Count 5.14 K/uL (4.8-10.8)
[2019-06-29 09:38] LABS: Calcium 9.5 mg/dl (8.5-10.1); Creatinine Clr Calc Pharmacy 29.9 ml/min; Est GFR (African American) 51.5; Est GFR (Non-African American) 44.5; Magnesium 2.2 mg/dl (1.8-2.4); Potassium 3.6 mmol/L (3.5-5.1)
--- NOTE | 2019-06-29 13:42 | Discharge Summary ---
Date of Service June 29, 2019 Admission HPI Per Admitting Provider The patient is not able to contribute to her review of systems or HPI due to altered mental state. The patient is an 88-year-old female most recently admitted to [facility] from 06/19-06/24 after a recent fall. In the emergency department today, patient was found to have an ecchymosis above her left eye, had a normal CT of head without bleed, had a normal chest x-ray and x-ray of pelvis and hip. She did have a urinalysis suggestive of UTI. Admission Exam Per Admitting Provider The patient is nonresponsive, bruise above left eye, lying in bed and in no acute distress. HEENT--PERRL, EOMI, mucous membranes and oropharynx dry. Neck--supple. No JVD. No bruits. Thyroid normal, trachea midline, no adenopathy. Heart--normal S1 and S2. No murmurs, rubs or gallops. Lungs--clear bilaterally, but diminished. No respiratory distress, no accessory muscle use. Abdomen--normal bowel sounds and soft. Nontender. Nondistended, no hernias or masses, no organomegaly. Extremities--no cyanosis or clubbing. No edema. There are good distal pulses b/l. Dermatologic--normal skin turgor, normal color, no abnormal lymph nodes, no rash. Neurologic--cranial nerves II through XII grossly intact. Rheumatologic--normal range of motion. Psychiatric--normal affect. Principal Diagnosis Falls and Syncope Discharge Exam General: Resting comfortably HEENT: NC/AT; PERRLA with EOMI; [place] conjunctiva, MMM. No erythema of posterior pharynx Neck: Supple and nontender Cardiac: RRR Lungs: CTA bilaterally Abdomen: Bowel normoactive X 4; Nontender to palpation Extremities: Warm. No edema present Neuro: No focal weakness; alert to place only. Skin: No rash Discharge Data Allergies Allergy/AdvReac Type Severity Reaction Status Date / Time metronidazole Allergy Unknown RASH Verified 06/24/19 20:52 red dye Allergy Unknown RASH Verified 06/24/19 20:52 tinidazole Allergy Unknown RASH Verified 06/24/19 20:52 yellow dye Allergy Unknown RASH Verified 06/24/19 20:52 Consultations 06/24/19 21:09 ED Decision to Admit Stat 06/25/19 00:12 Consult Case Management - Discharge Planning Routine Ordered Studies 06/24/19 19:56 CXR, Pelvix XR CT head/brain wo con Stat 06/25/19 14:16 CT facial bones wo con Urgent Hospital Course (1) Fall: Has had multiple recent falls - most recently patient was discharged on 06/24 to [facility]. Had a syncopal event while using the restroom and returned to the hospital. CT head was negative. EKG showed 1st degree AV block, otherwise negative. Previous work up in Oct 2017 for syncope was negative; Echo showed preserved EF and carotid US negative. Atenolol was d/c'ed at that time. Amlodipine decreased to 5 mg PO daily during this admission, will continue at this dose. No further episodes noted; d/c to [facility] this afternoon. (2) UTI (urinary tract infection): Previous admission urine culture grew Enterococcus faecalis; completed course of Cipro. (3) Elevated troponin I level: Likely due to supply demand mismatch stress of vagal event. DNR/DNI - would not want any aggressive treatment performed. Troponin peaked at .064 and trended down. (4) Hyperlipidemia: Continued home statin. (5) HTN (hypertension): Continued home Amlodipine. (6) GERD (gastroesophageal reflux disease): PPI. (7) Diabetes: Held home Metformin. Ordered SSI coverage. (8) Fracture of nasal bone: Sustained prior to last admission Repeat CT face showed stable fracture, resolving head contusion Recommend follow up with ENT. (9) Dementia: Has hospital related delirium with agitation. 1:1 supervision was d/c'ed. (10) DVT prophylaxis: SCDs. Discharged to [facility] on 06/29/19. Total Time Total Time Spent Total Time Spent (In Minutes): >30 minutes Total Time Includes: Examination of the Patient, Discharge Planning, Medication Reconciliation, Communication With Other Providers and Other Discharge Plan Discharge Items Patient Disposition: Transfer Shelter Fac Reason For Visit: FALL,UTI Discharge Diagnosis: Fall and Syncope Activity: As commented below Activity Comment: Per PT/OT recs. Non-emergency contact: Primary Care Provider Call non-emergency contact if: you have any medication questions, your symptoms worsen, your pain is not controlled, your pain is worsening, your pain is unusual for you, your pain is concerning for you and you have a fever Follow-up/Referrals: KIN MORALES [Primary Care Provider] - Diet: Carb Consistent or DM2 Addtl Attending Provider Instructions: 1. Fall and Syncope * Please use caution with standing from a seated position to avoid further falls/dizziness leading to syncope. * Amlodipine dose has been decreased to 5 mg daily to prevent dizziness/hypotension. * Continue to drink plenty of fluids to avoid dehydration. 2. Fracture of nasal bone * Please schedule follow up with ENT as an outpatient. 3. Please schedule follow up with PCP in 1-2 weeks. Pending Studies at Discharge: No Stand-Alone Forms: [facility] Skilled Items Patient informed of condition?: Yes DNR: Yes Discharge Level of Care: Skilled Communicable Disease: No Discharge Prognosis: Improving Lines: None Urinary Catheter: No Medications and DC Order Prescriptions: New amlodipine [Norvasc] 5 mg Tablet 5 mg PO QAM 1 Days Qty: 1 RF: 0 Continued aspirin 81 mg Tablet,Delayed Release (Dr/Ec) 81 mg PO QAM Qty: 0 RF: 0 calcium carbonate [Calcium 600] 600 mg calcium (1,500 mg) Tablet 600 mg PO QAM Qty: 0 RF: 0 simvastatin 20 mg Tablet 20 mg PO HS Qty: 0 RF: 0 cholecalciferol (vitamin D3) 1,000 unit (25 mcg) Tablet 2,000 unit PO QAM Qty: 0 RF: 0 [place]-3 Fish Oil 300-1,000 mg Capsule 1 cap PO DAILY Qty: 0 RF: 0 metformin 500 mg Tablet Extended Release 24 Hr 500 mg PO BID Qty: 0 RF: 0 potassium chloride [Klor-Con M20] 20 mEq Tablet,Er Particles/Crystals 10 meq PO QAM Qty: 0 RF: 0 pantoprazole 20 mg tablet,delayed release (DR/EC) 20 mg PO QAM RF: 0 metoclopramide HCl 5 mg tablet 5 mg PO TIDM RF: 0 levothyroxine 50 mcg tablet 50 mcg PO QAM RF: 0 acetaminophen [Tylenol] 325 mg Tablet 650 mg PO Q6H PRN (Reason: Fever Or Pain) RF: 0 Discontinued acetaminophen [Mapap (acetaminophen)] 325 mg Tablet 650 mg PO Q4H PRN (Reason: pain) Qty: 30 RF: 0 amlodipine [Norvasc] 5 mg Tablet 10 mg PO QAM Qty: 30 RF: 0 ciprofloxacin HCl 250 mg Tablet 250 mg PO Q12H Qty: 5 RF: 0 Discharge Orders: Discharge Order (Routine); Ordered 06/29/19 Ordered By: Lydia James Admission Data Admit Date/Time: 06/24/19 23:05 Attending Provider: Lux Cameron Admit Provider: Ronald Aquino Primary Care Provider: KIN MORALES Other Providers: Lux Cameron ; [facility]
== END 2019-06-29 15:20 | DRG 690 ==
LOC: ED 19:44 → 4W 23:05 → SUATTDRO 23:05 → 4W 23:34
DX: I10 Essential (primary) hypertension; W19.XXXA Unspecified fall, initial encounter; E78.5 Hyperlipidemia, unspecified; Z79.84 Long term (current) use of oral hypoglycemic drugs; F03.90 Unspecified dementia, unspecified severity, without behavioral disturbance, psychotic disturbance, mood disturbance, and anxiety; S02.2XXA Fracture of nasal bones, initial encounter for closed fracture; Z66 Do not resuscitate; E11.9 Type 2 diabetes mellitus without complications; K21.9 Gastro-esophageal reflux disease without esophagitis; N39.0 Urinary tract infection, site not specified; Z79.82 Long term (current) use of aspirin